=== PATIENT | female | born 1935 | race African-American/Black ===

== ENCOUNTER 2017-06-15 20:09 | Inpatient (IN) | payer MEDICARE, MEDICAID ==
[2017-06-15 22:14] LABS: Bilirubin Negative (Negative); Blood, Urine Negative (Negative); Glucose, Urine (Dipstick) Negative (Negative); Ketone, Urine Negative (Negative); Nitrite Negative (Negative); Protein, Urine (Dipstick) Trace mg/dL (Neg-Trace); Urobilinogen 0.2 mg/dL (0.2-1.0)
[2017-06-15 22:16] LABS: Bacteria/HPF None Seen HPF (None Seen); Hyaline Casts/LPF 4-6 HYALINE CAST LPF (0-3 Hyaline)
[2017-06-15 22:24] LABS: Yeast-All Forms 2+ HPF (None Seen)
[2017-06-15 22:35] LABS: #Lymphocytes 1.9 thou/uL (1.20-3.40); #Monocytes 0.6 thou/uL (0.11-0.59); #Neutrophils 2.6 thou/uL (1.40-6.50); %Basophils 0.6 % (0.0-1.0); %Eosinophils 0.1 % (0.0-10.0); %Lymphocytes 37.4 % (21.0-51.0); Hematocrit 38.9 % (36.0-47.0); Red Blood Cell (RBC) Count 4.26 mill/uL (4.20-5.40); White Blood Cell (WBC) Count 5.2 thou/uL (4.8-10.8)
[2017-06-15 22:49] LABS: ALT (SGPT) 36 U/L (8-55); AST (SGOT) 25 U/L (5-34); Alkaline Phosphatase 58 U/L (40-150); Anion Gap 13 mmol/L (10-20); BUN (Urea Nitrogen) 21 mg/dL (9.8-20.1); Bilirubin, Total 0.3 mg/dL (0.2-1.2); Calc. Creatinine Clearance 0 mL/min (70-130); Calcium 8.8 mg/dL (7.8-10.44); Carbon Dioxide 22 mmol/L (23-31); Chloride 106 mmol/L (98-107); Estimated GFR-MDRD 46; Globulin 3.1 g/dL (2.4-3.5); Lipase 7 U/L (8-78); Protein, Total 6.7 g/dL (6.0-8.3)
[2017-06-16] MEDS ORDERED: Ondansetron ODT 4 MG TAB SL PRN (03:38)
[2017-06-16] MEDS ORDERED: Ondansetron HCl/PF 4 MG/2 ML Vial IVP PRN (03:38)
[2017-06-16 04:49] VITALS: BMI 23.8
[2017-06-16] MEDS ORDERED: Loratadine 10 MG TAB PO PRN (07:06)
[2017-06-16] MEDS ORDERED: Chloraseptic Spray 180 ml Bottle PO PRN (07:06)
[2017-06-16] MEDS ORDERED: Diabetic Tussin 200 MG/10 ML UDCUP PO PRN (07:06)
[2017-06-16] MEDS ORDERED: Acetaminophen 325 MG TAB PO PRN (07:06)
[2017-06-16] MEDS ORDERED: Sodium Chloride 0.65% Nasal 44 ML BOT EA NARE PRN (07:06)
[2017-06-16] MEDS ORDERED: Zolpidem Tartrate 5 MG TAB PO PRN (07:06)
[2017-06-16] MEDS ORDERED: Senokot 8.6 MG TAB PO PRN (07:06)
[2017-06-16] MEDS ORDERED: hydrALAZINE 20 MG/ML VIAL SLOW IVP PRN (07:06)
[2017-06-16] MEDS ORDERED: Artificial Tears 18 DROP/0.9 ML EA EYE PRN (07:06)
[2017-06-16] MEDS ORDERED: Loperamide HCl 2 MG CAP PO PRN (07:06)
[2017-06-16] MEDS ORDERED: Mag-Al 1200 mg/1200 mg/30 ML UDCUP PO PRN (07:06)
[2017-06-16] MEDS ORDERED: Eucerin (Mineral Oil/Petrolatum,White) 30 gm Jar TOP PRN (07:06)
[2017-06-16] MEDS ORDERED: Famotidine 20 MG TAB PO SCH (09:00)
[2017-06-16] MEDS: Digoxin 0.125 MG TAB PO SCH (09:14)
[2017-06-16] MEDS: Aspirin 81 mg Enteric Coated Tablet PO SCH (09:15)
[2017-06-16] MEDS: Amlodipine 10 MG TAB PO SCH (09:15)
[2017-06-16] MEDS: Carbidopa/Levodopa CR 50-200 mg Tablet PO SCH ×3 (09:15→20:19)
[2017-06-16] MEDS: Lisinopril 20 MG TAB PO SCH (09:15)
[2017-06-16] MEDS: Anastrozole 1 MG TAB PO SCH (09:16)
[2017-06-16] MEDS: Enoxaparin Sodium 40 MG/0.4 ML SYRINGE SC SCH (09:17)
[2017-06-16] MEDS: Sodium Chloride 0.9% 1,000 ML IV SCH ×2 (09:17→23:35)
[2017-06-16] MEDS: Ondansetron ODT 4 MG TAB PO PRN (09:21)
[2017-06-16] MEDS: HYDROcodone/Acetaminophen 5/325 mg Tablet PO PRN (10:37)
[2017-06-16] MEDS: Milk Of Magnesia 30 ML UDCUP PO PRN (10:37)
[2017-06-16] MEDS: cefTRIAXone\\ROCEPHIN 1 GM, Admixture Fee 1 EACH in Sodium Chloride 0.9% 100 ML IVPB SCH (10:38)
[2017-06-16] MEDS ORDERED: HumaLOG 300 UNITS/3 ML VIAL SC PRN (12:21)
[2017-06-16] MEDS ORDERED: Dextrose 50% Abboject 50 ML SYRINGE IVP PRN (12:21)
[2017-06-16] MEDS ORDERED: Dextrose 5% in Water 1,000 ML IV PRN (12:21)
[2017-06-16] MEDS ORDERED: Metoclopramide HCl 10 MG/2 ML VIAL IVP PRN (13:02)
[2017-06-16] MEDS: traMADol HCl 50 MG TAB PO PRN (13:49)
--- NOTE | 2017-06-16 13:51 | HP ---
PRIMARY CARE PHYSICIAN: Kaylynn Ghotra M.D. REASON FOR ADMISSION: Generalized weakness, dehydration, acute on chronic kidney failure, urinary tract infection. HISTORY OF PRESENT ILLNESS: An 82-year-old -Citizen Of [place] female with a history of diabetes, hypertension as well as history of breast cancer, who initially went to [facility] with a complaint of nausea and vomiting. The patient was not able to keep anything by mouth, and this was ongoing for the last 2 days. She was also complaining of abdominal pain. The patient did not have any fever or chills. She was not complaining of any urinary tract infection symptoms. Patient's family member reports that she had recently UTIs and she has finished the antibiotic therapies. She denies any diarrhea. She denies any hematochezia or melena. The patient's condition was getting more and more weak and that is why family member brought her to emergency room today. REVIEW OF SYSTEMS: The following complete review of systems was negative, unless otherwise mentioned in the HPI or below: Constitutional: Weight loss or gain, ability to conduct usual activities. Skin: Rash, itching. Eyes: Double vision, pain. ENT/Mouth: Nose bleeding, neck stiffness, pain, tenderness. Cardiovascular: Palpitations, dyspnea on exertion, orthopnea. Respiratory: Shortness of breath, wheezing, cough, hemoptysis, fever or night sweats. Gastrointestinal: Poor appetite, abdominal pain, heartburn, nausea, vomiting, constipation, or diarrhea. Genitourinary: Urgency, frequency, dysuria, nocturia. Musculoskeletal: Pain, swelling. Neurologic/Psychiatric: Anxiety, depression. Allergy/Immunologic: Skin rash, bleeding tendency. Please see my HPI for pertinent positives and negatives. All other review of systems reviewed and negative except as mentioned in the HPI. EMERGENCY ROOM COURSE: At [facility], patient was given Rocephin 1 gram, fentanyl 25 mcg, Zofran 4 mg, IV fluids, and Tylenol 1 gram. PAST MEDICAL HISTORY: Gastroesophageal reflux disease; history of uterine prolapse; history of osteomyelitis of the foot or ankle; peripheral neuropathy; congestive heart failure, type of congestive heart failure not known; diabetes, type 2; diabetic gastroparesis; hypothyroidism; hiatal hernia; history of peptic ulcer disease; Parkinson's disease; peripheral vascular disease; external hemorrhoid. PAST SURGICAL HISTORY: Bladder suspension, hysterectomy, hernia repair, mastectomy of the left breast for left breast cancer, gastric fundoplication, cholecystectomy, tubal ligation. PAST PSYCHIATRIC HISTORY: Schizoaffective disorder/schizophrenia. SOCIAL HISTORY: Patient lives at home with the family. No history of tobacco, alcohol, or illicit drug abuse. ALLERGIES: No known drug allergies. FAMILY HISTORY: No strong family history of CAD, CVA or cancer. CURRENT HOME MEDICATIONS: Lisinopril 20 mg p.o. daily, NovoLog insulin as per sliding scale, amlodipine 10 mg p.o. daily, digoxin 125 mcg p.o. daily, carbidopa-levodopa one tablet 3 times daily, pentoxifylline 400 mg 3 times daily , omeprazole 20 mg p.o. daily, levothyroxine 100 mcg p.o. daily, Seroquel 12.5 mg twice daily and 50 mg at bedtime, Lantus 15 units subcu at bedtime, vitamin D3 2000 units p.o. daily, vitamin E 400 units p.o. daily, Zofran 4 mg q.8 hourly p.r.n., tramadol 50 mg q.8 hourly p.r.n., Arimidex 1 mg p.o. daily, aspirin 81 mg p.o. daily, vitamin B6 100 mg p.o. daily. PHYSICAL EXAMINATION: VITAL SIGNS: On arrival, blood pressure 170/104, pulse 109, respiratory rate 24 , temperature 100.5, saturation 100% on room air, weight 65.8 kilograms. GENERAL: Patient currently appears weak, in no obvious acute distress. HEENT: Normocephalic, atraumatic. Eyes: Pupils round and reactive to light. Extraocular muscles intact. ENT: Dry appearing mucous membranes. No oral lesions. No pharyngeal erythema, no exudate. NECK: Supple. Range of motion is normal. No meningeal signs of irritation. LUNGS: Clear to auscultation without any rhonchi or rales. CARDIAC: S1, S2 regular without any murmur. ABDOMEN: Soft, bowel sounds present, nontender, nondistended. No organomegaly , no mass, no suprapubic tenderness. BACK EXAMINATION: No CVA tenderness. No point tenderness. EXTREMITIES: Upper extremities, passive movement of all joints are normal. Lower extremities: No edema. Good peripheral pulsation. SKIN: No skin rash. HEMATOLOGICAL SYSTEM: No lymphadenopathy. PSYCHIATRIC: Normal affect. NEUROLOGIC: Grossly nonfocal examination. She is moving all 4 limbs, follows simple commands, speech normal. SIGNIFICANT LABS: EKG, based on my review, normal sinus rhythm, nonspecific ST- T changes. CT of the abdomen and pelvis showing large hiatal hernia, postcholecystectomy changes, no acute abnormality noted. CBC: WBC 5.2, hemoglobin 12.6, platelets 157. BMP: Sodium 137, potassium 3.9, chloride 106, carbon dioxide 22, BUN 21, creatinine 1.34, glucose 147, calcium 8.8. LFTs: AST 25, ALT 1236, alkaline phosphatase 58, albumin 3.6, lipase 7. Urinalysis suggestive of UTI. Blood culture is negative so far. ASSESSMENT AND PLAN: 1. Intractable nausea and vomiting. At this point, the patient's symptoms could be explained by multiple etiologies including 1 reason is urinary tract infection and second is she has history of hiatal hernia as well as a history of gastroparesis from diabetes. At this point, the patient will need symptomatic treatment with Zofran p.r.n. basis. We will also continue Protonix 40 mg IV daily and Reglan p.r.n. basis. 2. Dehydration. Patient is not able to keep anything down and that is why she is clinically dehydrated. Patient also has worsening of renal failure. Patient appears volume depleted. At this point, patient will be given IV fluid with NS at 70 mL per hour and we will monitor renal function. We will watch for any fluid overload given her history of congestive heart failure. 3. Acute on chronic kidney failure. Baseline chronic kidney disease, stage 2. Patient is getting IV fluid and we will monitor renal function at this point from [facility] labs and currently her renal function is improving. We will repeat labs tomorrow. 4. Urinary tract infection. We will continue Levaquin 250 mg IV daily based on renal dose. We will follow up on culture result. 5. Diabetes, type 2. We will continue insulin as per sliding scale per protocol and we will also continue the Levemir insulin 15 units subcutaneous p.m. Diabetic diet will be given. 6. History of breast cancer, status post mastectomy. The patient is currently on Arimidex 1 mg p.o. daily. We will continue while in hospital. 7. Hypertension. We will continue amlodipine 10 mg p.o. daily and lisinopril 20 mg p.o. daily. 8. Hypothyroidism. Continue Synthroid 100 mcg p.o. daily. 9. Dyslipidemia. Continue Lipitor 40 mg p.o. at bedtime. 10. Parkinson's disease. Continue carbidopa-levodopa ER 50/200 half tablet 3 times daily. 11. Hiatal hernia/gastroesophageal reflux disease. We will continue Protonix 40 mg IV daily. 12. History of peripheral vascular disease. Continue pentoxifylline 400 mg t.i.d. 13. Physical deconditioning. Patient will need PT/OT while in hospital. 14. Deep vein thrombosis prophylaxis. Lovenox 40 mg subcutaneous daily. 15. Gastrointestinal prophylaxis. Patient is already on Protonix therapy. CODE STATUS: Discussed with the patient's daughter, who wants to be a full code status. She is surrogate decision maker. DISPOSITION PLAN: Based on clinical course, likely patient will need more than 2 midnights. While in hospital, we will also continue with PT/OT evaluation. Plan of care discussed with the patient's daughter at bedside. MTDD
[2017-06-16] MEDS: Ondansetron HCl/PF 4 MG/2 ML Vial IVP PRN ×2 (16:33→23:36)
[2017-06-16] MEDS: Atorvastatin Calcium 40 MG TAB PO SCH (20:19)
[2017-06-16] MEDS: Insulin Detemir 100 UNITS/ML 15 UNITS in Syringe 0 ML SC SCH (20:31)
[2017-06-16] MEDS ORDERED: Non-Formulary Item 1 EACH (Insulin Glargine,Hum.Rec.Anlog 15 UNIT) SQ SCH (21:00)
[2017-06-17 04:11] LABS: #Monocytes 0.6 thou/uL (0.11-0.59); #Neutrophils 3.6 thou/uL (1.40-6.50); %Basophils 0.2 % (0.0-1.0); %Eosinophils 0.2 % (0.0-10.0); %Lymphocytes 19.8 % (21.0-51.0); %Monocytes 10.6 % (0.0-10.0); Hematocrit 44.4 % (36.0-47.0); Mean Platelet Volume 8.8 fL (7.4-10.4); Red Blood Cell (RBC) Count 4.87 mill/uL (4.20-5.40); White Blood Cell (WBC) Count 5.2 thou/uL (4.8-10.8)
[2017-06-17 04:28] LABS: Anion Gap 16 mmol/L (10-20); BUN (Urea Nitrogen) 12 mg/dL (9.8-20.1); Calc. Creatinine Clearance 50 mL/min (70-130); Calcium 9.4 mg/dL (7.8-10.44); Carbon Dioxide 24 mmol/L (23-31); Chloride 100 mmol/L (98-107); Estimated GFR-MDRD 71
[2017-06-17] MEDS: Levothyroxine Sodium 100 MCG TAB PO SCH (06:18)
[2017-06-17] MEDS: Ondansetron HCl/PF 4 MG/2 ML Vial IVP PRN (06:18)
[2017-06-17] MEDS: Digoxin 0.125 MG TAB PO SCH (08:19)
[2017-06-17] MEDS: Enoxaparin Sodium 40 MG/0.4 ML SYRINGE SC SCH (08:19)
[2017-06-17] MEDS: Amlodipine 10 MG TAB PO SCH (08:20)
[2017-06-17] MEDS: Carbidopa/Levodopa CR 50-200 mg Tablet PO SCH ×3 (08:20→20:24)
[2017-06-17] MEDS: Aspirin 81 mg Enteric Coated Tablet PO SCH (08:20)
[2017-06-17] MEDS: Lisinopril 20 MG TAB PO SCH (08:20)
[2017-06-17] MEDS: traMADol HCl 50 MG TAB PO PRN ×2 (08:21→17:46)
[2017-06-17] MEDS: cefTRIAXone\\ROCEPHIN 1 GM, Admixture Fee 1 EACH in Sodium Chloride 0.9% 100 ML IVPB SCH (08:23)
[2017-06-17] MEDS ORDERED: FLU VACC TS2017-18 (>65YR) 0.5 ML SYRINGE IM ONE (09:00)
[2017-06-17] MEDS: Levofloxacin/D5W 250 MG in Premix Bag 1 BAG IVPB SCH (09:24)
[2017-06-17] MEDS: Anastrozole 1 MG TAB PO SCH (10:22)
[2017-06-17] MEDS: Sodium Chloride 0.9% 1,000 ML IV SCH ×2 (11:18→14:58)
--- NOTE | 2017-06-17 12:07 | PDOC.PN ---
- Subjective Encounter Start Date: 06/17/17 Encounter Start Time: 08:45 Patient seen and examined. pt continue to have nausea and vomiting. No overnight events - Objective Resuscitation Status: Resuscitation Status FULL:Full Resuscitation MAR Reviewed: Yes Vital Signs & Weight: Vital Signs (12 hours) Temp Pulse Resp BP BP Pulse Ox 06/17/17 08:20 99 194/73 H 06/17/17 08:19 99 06/17/17 08:05 99.3 F 101 H 18 194/73 H 100 06/17/17 08:00 99.3 F 99 18 100 06/17/17 03:38 98.8 F 104 H 16 183/84 H 99 06/17/17 00:26 99.1 F 104 H 16 179/74 H 99 Weight Weight 143 lb 4.807 oz I&O: 06/16/17 06/17/17 06/18/17 06:59 06:59 06:59 Intake Total 920 Balance 920 Result Diagrams: 06/17/17 03:58 06/17/17 03:58 Additional Labs: Accuchecks 06/17/17 06/17/17 06/16/17 10:52 03:43 19:29 POC Glucose 280 H 204 H 253 H 06/16/17 06/16/17 16:29 11:49 POC Glucose 225 H 174 H Phys Exam - Physical Examination Constitutional: NAD HEENT: PERRLA, moist MMs, sclera anicteric Neck: no JVD, supple Respiratory: no wheezing, no rales, no rhonchi Cardiovascular: RRR, no significant murmur, no rub Gastrointestinal: soft, non-tender, no distention, positive bowel sounds Musculoskeletal: no edema, pulses present Neurological: non-focal, normal sensation, moves all 4 limbs Psychiatric: normal affect Skin: no rash, normal turgor Dx/Plan (1) Acute kidney failure Status: Acute (2) Dehydration Code(s): E86.0 - DEHYDRATION Status: Acute (3) Intractable nausea and vomiting Code(s): R11.2 - NAUSEA WITH VOMITING, UNSPECIFIED Status: Acute (4) UTI (urinary tract infection) Status: Acute (5) Breast cancer, left Code(s): C50.912 - MALIGNANT NEOPLASM OF UNSPECIFIED SITE OF LEFT FEMALE BREAST Status: Chronic (6) Diabetes type 2, controlled Code(s): E11.9 - TYPE 2 DIABETES MELLITUS WITHOUT COMPLICATIONS Status: Chronic (7) Dyslipidemia Code(s): E78.5 - HYPERLIPIDEMIA, UNSPECIFIED Status: Chronic (8) Hiatal hernia Code(s): K44.9 - DIAPHRAGMATIC HERNIA WITHOUT OBSTRUCTION OR GANGRENE Status: Chronic (9) Hypertension Code(s): I10 - ESSENTIAL (PRIMARY) HYPERTENSION Status: Chronic (10) Parkinson disease Code(s): G20 - PARKINSON'S DISEASE Status: Chronic - Plan cont current plan of care, plan discussed w/ family, continue antibiotics * pt's labs test improved and exam is not alarming * will continue to treat medically * if still symptomatic by tomorrow, will consider GI consult * continue rocephin and levaquin. * follow culture * discussed with daughter * medication reviewed as below * symptomatic treatment Review of Systems - Review of Systems Constitutional: negative: Fever, Chills, Sweats, Weakness, Malaise, Other Eyes: negative: Pain, Vision Change, Conjunctivae Inflammation, Eyelid Inflammation, Redness, Other ENT: negative: Ear Pain, Ear Discharge, Nose Pain, Nose Discharge, Nose Congestion, Mouth Pain, Mouth Swelling, Throat Pain, Throat Swelling, Other Respiratory: negative: Cough, Dry, Shortness of Breath, Hemoptysis, SOB with Excertion, Pleuritic Pain, Sputum, Wheezing Cardiovascular: negative: Chest Pain, Palpitations, Orthopnea, Paroxysmal Noc. Dyspnea, Edema, Light Headedness, Other Gastrointestinal: Nausea, Vomiting. negative: Abdominal Pain, Diarrhea, Constipation, Melena, Hematochezia, Other Genitourinary: negative: Dysuria, Frequency, Incontinence, Hematuria, Retention , Other Musculoskeletal: negative: Neck Pain, Shoulder Pain, Arm Pain, Back Pain, Hand Pain, Leg Pain, Foot Pain, Other - Medications/Allergies Allergies/Adverse Reactions: Allergies Allergy/AdvReac Type Severity Reaction Status Date / Time No Known Allergies Allergy Verified 05/26/15 09:14 Medications: Current Medications Acetaminophen (Tylenol) 650 mg PO Q4H PRN PRN Reason: Headache/Fever or Pain Hydrocodone Bitart/Acetaminophen ([place] 5/325) 1 tab PO Q4H PRN PRN Reason: Moderate Pain (4-6) Last Admin: 06/16/17 10:37 Dose: 1 tab Al Hydroxide/Mg Hydroxide (Maalox) 30 ml PO Q6H PRN PRN Reason: Heartburn or Indigestion Amlodipine Besylate (Norvasc) 10 mg PO DAILY [facility] Last Admin: 06/17/17 08:20 Dose: 10 mg Anastrozole (Arimidex) 1 mg PO DAILY [facility] Last Admin: 06/17/17 10:22 Dose: 1 mg Artificial Tears (Tears Naturale) 0 drop EA EYE PRN PRN PRN Reason: Dry Eyes Aspirin (Ecotrin) 81 mg PO DAILY [facility] Last Admin: 06/17/17 08:20 Dose: 81 mg Atorvastatin Calcium (Lipitor) 40 mg PO HS [facility] Last Admin: 06/16/17 20:19 Dose: 40 mg Carbidopa/Levodopa (Sinemet Cr 50/200) 0.5 tab PO TID [facility] Last Admin: 06/17/17 08:20 Dose: 0.5 tab Cholecalciferol (Vitamin D3) 1,000 units PO DAILY [facility] Last Admin: 06/17/17 08:20 Dose: 1,000 units Dextrose/Water (Dextrose 50%) 25 gm IVP PRN PRN PRN Reason: HYPOGLYCEMIA PROTOCOL Digoxin (Lanoxin) 0.125 mg PO DAILY [facility] Last Admin: 06/17/17 08:19 Dose: 0.125 mg Enoxaparin Sodium (Lovenox) 40 mg SC 0900 [facility] Last Admin: 06/17/17 08:19 Dose: 40 mg Glucagon (Glucagon) 1 mg IM PRN PRN PRN Reason: HYPOGLYCEMIA PROTOCOL Guaifenesin (Robitussin Sf) 200 mg PO Q4H PRN PRN Reason: Cough Hydralazine HCl (Apresoline) 10 mg SLOW IVP Q4H PRN PRN Reason: Systolic BP > 180 Sodium Chloride (Normal Saline 0.9%) 1,000 mls @ 70 mls/hr IV .[id number] [facility] Last Admin: 06/17/17 11:18 Dose: Not Given Ceftriaxone Sodium 1 gm/Miscellaneous Medication 1 each/ Sodium Chloride 100 mls @ 200 mls/hr IVPB DAILY [facility] Last Admin: 06/17/17 08:23 Dose: 100 mls Insulin Detemir 15 units/ (Syringe) 0.15 mls @ 0 mls/hr SC QPM [facility] Last Admin: 06/16/17 20:31 Dose: Not Given Levofloxacin 250 mg/ Device 50 mls @ 100 mls/hr IVPB DAILY [facility] Last Admin: 06/17/17 09:24 Dose: 50 mls Dextrose/Water (D5w) 1,000 mls @ 0 mls/hr IV INF PRN; As Directed PRN Reason: HYPOGLYCEMIA PROTOCOL Insulin Human Lispro (Humalog) 0 units SC .MODERATE SLIDING SC PRN; Protocol PRN Reason: MODERATE SLIDING SCALE Levothyroxine Sodium (Synthroid) 100 mcg PO 0600 [facility] Last Admin: 06/17/17 06:18 Dose: 100 mcg Lisinopril (Zestril) 20 mg PO QAM [facility] Last Admin: 06/17/17 08:20 Dose: 20 mg Loperamide HCl (Imodium) 2 mg PO PRN PRN PRN Reason: Diarrhea/Loose Stools Loratadine (Claritin) 10 mg PO DAILYPRN PRN PRN Reason: Sinus Symptoms Magnesium Hydroxide (Milk Of Magnesium) 30 ml PO DAILYPRN PRN PRN Reason: Constipation Last Admin: 06/16/17 10:37 Dose: 30 ml Metoclopramide HCl (Reglan) 10 mg IVP Q6H PRN PRN Reason: Nausea/Vomiting Last Admin: 06/16/17 14:08 Dose: 10 mg Mineral Oil/White Petrolatum (Eucerin Cream) 0 gm TOP BIDPRN PRN PRN Reason: Dry Skin Ondansetron HCl (Zofran Odt) 4 mg PO Q6H PRN PRN Reason: Nausea/Vomiting Last Admin: 06/16/17 09:21 Dose: 4 mg Ondansetron HCl (Zofran) 4 mg IVP Q6H PRN PRN Reason: Nausea/Vomiting Last Admin: 06/17/17 06:18 Dose: 4 mg Pantoprazole Sodium (Protonix) 40 mg IVP 2100 [facility] Pentoxifylline (Trental) 400 mg PO TID-[facility] Last Admin: 06/17/17 11:55 Dose: 400 mg Phenol (Chloraseptic [place] 180 Ml Bot) 0 ml PO PRN PRN PRN Reason: Sore Throat Quetiapine Fumarate (Seroquel) 25 mg PO HS [facility] Last Admin: 06/16/17 20:19 Dose: 25 mg Senna (Senokot) 2 tab PO HSPRN PRN PRN Reason: Constipation Sodium Chloride ([place] Nasal [place] 0.65%) 0 ml EA NARE QIDPRN PRN PRN Reason: Nasal Congestion Tramadol HCl (Ultram) 50 mg PO Q6H PRN PRN Reason: Pain Last Admin: 06/17/17 08:21 Dose: 50 mg Vitamin E (Vitamin E) 400 units PO DAILY [facility] Last Admin: 06/17/17 10:22 Dose: 400 units Zolpidem Tartrate (Ambien) 5 mg PO HSPRN PRN PRN Reason: Insomnia
[2017-06-17] MEDS: Ondansetron ODT 4 MG TAB PO PRN (17:46)
[2017-06-17] MEDS: Pantoprazole 40 MG VIAL IVP SCH (20:24)
[2017-06-17] MEDS: Atorvastatin Calcium 40 MG TAB PO SCH (20:35)
[2017-06-17] MEDS: Insulin Detemir 100 UNITS/ML 15 UNITS in Syringe 0 ML SC SCH (20:36)
[2017-06-18] MEDS: Ondansetron HCl/PF 4 MG/2 ML Vial IVP PRN ×3 (03:08→18:22)
[2017-06-18] MEDS: Sodium Chloride 0.9% 1,000 ML IV SCH ×3 (03:13→19:38)
[2017-06-18] MEDS: HYDROcodone/Acetaminophen 5/325 mg Tablet PO PRN ×4 (03:17→20:33)
[2017-06-18] MEDS: Levothyroxine Sodium 100 MCG TAB PO SCH (06:34)
[2017-06-18] MEDS: Carbidopa/Levodopa CR 50-200 mg Tablet PO SCH ×3 (08:36→20:36)
[2017-06-18] MEDS: Enoxaparin Sodium 40 MG/0.4 ML SYRINGE SC SCH (08:36)
[2017-06-18] MEDS: Amlodipine 10 MG TAB PO SCH (08:36)
[2017-06-18] MEDS: Lisinopril 20 MG TAB PO SCH (08:36)
[2017-06-18] MEDS: Digoxin 0.125 MG TAB PO SCH (08:37)
[2017-06-18] MEDS: cefTRIAXone\\ROCEPHIN 1 GM, Admixture Fee 1 EACH in Sodium Chloride 0.9% 100 ML IVPB SCH (08:37)
[2017-06-18] MEDS: Aspirin 81 mg Enteric Coated Tablet PO SCH (08:37)
[2017-06-18] MEDS: Anastrozole 1 MG TAB PO SCH (08:38)
[2017-06-18] MEDS: Levofloxacin/D5W 250 MG in Premix Bag 1 BAG IVPB SCH (10:00)
--- NOTE | 2017-06-18 10:09 | PDOC.PN ---
- Subjective Encounter Start Date: 06/18/17 Encounter Start Time: 10:08 - Objective Resuscitation Status: Resuscitation Status FULL:Full Resuscitation MAR Reviewed: Yes Vital Signs & Weight: Vital Signs (12 hours) Temp Pulse Resp BP BP Pulse Ox 06/18/17 08:37 97 06/18/17 08:36 97 166/76 H 06/18/17 08:00 98.8 F 97 16 166/76 H 99 06/18/17 07:24 98.8 F 97 20 99 Weight Weight 143 lb 4.807 oz I&O: 06/17/17 06/18/17 06/19/17 06:59 06:59 06:59 Intake Total 920 2620 180 Output Total 850 Balance 920 1770 180 Result Diagrams: 06/17/17 03:58 06/17/17 03:58 Additional Labs: Accuchecks 06/18/17 06/17/17 06/17/17 04:23 19:31 16:23 POC Glucose 218 H 220 H 196 H 06/17/17 10:52 POC Glucose 280 H Dx/Plan (1) Intractable nausea and vomiting Code(s): R11.2 - NAUSEA WITH VOMITING, UNSPECIFIED Status: Acute (2) Acute kidney failure Status: Resolved (3) Dehydration Code(s): E86.0 - DEHYDRATION Status: Acute (4) UTI (urinary tract infection) Status: Acute Comment: Cx negative so far (5) Breast cancer, left Code(s): C50.912 - MALIGNANT NEOPLASM OF UNSPECIFIED SITE OF LEFT FEMALE BREAST Status: Chronic (6) Diabetes type 2, controlled Code(s): E11.9 - TYPE 2 DIABETES MELLITUS WITHOUT COMPLICATIONS Status: Chronic (7) Dyslipidemia Code(s): E78.5 - HYPERLIPIDEMIA, UNSPECIFIED Status: Chronic (8) Hiatal hernia Code(s): K44.9 - DIAPHRAGMATIC HERNIA WITHOUT OBSTRUCTION OR GANGRENE Status: Chronic (9) Hypertension Code(s): I10 - ESSENTIAL (PRIMARY) HYPERTENSION Status: Chronic (10) Parkinson disease Code(s): G20 - PARKINSON'S DISEASE Status: Chronic - Plan DC [email or web address] [email or web address] Cx negative so far * . Review of Systems - Medications/Allergies Allergies/Adverse Reactions: Allergies Allergy/AdvReac Type Severity Reaction Status Date / Time No Known Allergies Allergy Verified 05/26/15 09:14 Medications: Current Medications Acetaminophen (Tylenol) 650 mg PO Q4H PRN PRN Reason: Headache/Fever or Pain Hydrocodone Bitart/Acetaminophen ([place] 5/325) 1 tab PO Q4H PRN PRN Reason: Moderate Pain (4-6) Last Admin: 06/18/17 10:00 Dose: 1 tab Al Hydroxide/Mg Hydroxide (Maalox) 30 ml PO Q6H PRN PRN Reason: Heartburn or Indigestion Amlodipine Besylate (Norvasc) 10 mg PO DAILY [facility] Last Admin: 06/18/17 08:36 Dose: 10 mg Anastrozole (Arimidex) 1 mg PO DAILY [facility] Last Admin: 06/18/17 08:38 Dose: 1 mg Artificial Tears (Tears Naturale) 0 drop EA EYE PRN PRN PRN Reason: Dry Eyes Aspirin (Ecotrin) 81 mg PO DAILY [facility] Last Admin: 06/18/17 08:37 Dose: 81 mg Atorvastatin Calcium (Lipitor) 40 mg PO HS [facility] Last Admin: 06/17/17 20:35 Dose: 40 mg Carbidopa/Levodopa (Sinemet Cr 50/200) 0.5 tab PO TID [facility] Last Admin: 06/18/17 08:36 Dose: 0.5 tab Cholecalciferol (Vitamin D3) 1,000 units PO DAILY [facility] Last Admin: 06/18/17 08:37 Dose: 1,000 units Dextrose/Water (Dextrose 50%) 25 gm IVP PRN PRN PRN Reason: HYPOGLYCEMIA PROTOCOL Digoxin (Lanoxin) 0.125 mg PO DAILY [facility] Last Admin: 06/18/17 08:37 Dose: 0.125 mg Enoxaparin Sodium (Lovenox) 40 mg SC 0900 [facility] Last Admin: 06/18/17 08:36 Dose: 40 mg Glucagon (Glucagon) 1 mg IM PRN PRN PRN Reason: HYPOGLYCEMIA PROTOCOL Guaifenesin (Robitussin Sf) 200 mg PO Q4H PRN PRN Reason: Cough Hydralazine HCl (Apresoline) 10 mg SLOW IVP Q4H PRN PRN Reason: Systolic BP > 180 Sodium Chloride (Normal Saline 0.9%) 1,000 mls @ 70 mls/hr IV .[id number] [facility] Last Admin: 06/18/17 03:13 Dose: 1,000 mls Insulin Detemir 15 units/ (Syringe) 0.15 mls @ 0 mls/hr SC QPM [facility] Last Admin: 06/17/17 20:36 Dose: Not Given Levofloxacin 250 mg/ Device 50 mls @ 100 mls/hr IVPB DAILY [facility] Last Admin: 06/18/17 10:00 Dose: 50 mls Dextrose/Water (D5w) 1,000 mls @ 0 mls/hr IV INF PRN; As Directed PRN Reason: HYPOGLYCEMIA PROTOCOL Fluconazole/Sodium Chloride (200 mg/ Device) 100 mls @ 100 mls/hr IVPB DAILY [facility] Insulin Human Lispro (Humalog) 0 units SC .MODERATE SLIDING SC PRN; Protocol PRN Reason: MODERATE SLIDING SCALE Levothyroxine Sodium (Synthroid) 100 mcg PO 0600 [facility] Last Admin: 06/18/17 06:34 Dose: 100 mcg Lisinopril (Zestril) 20 mg PO QAM [facility] Last Admin: 06/18/17 08:36 Dose: 20 mg Loperamide HCl (Imodium) 2 mg PO PRN PRN PRN Reason: Diarrhea/Loose Stools Loratadine (Claritin) 10 mg PO DAILYPRN PRN PRN Reason: Sinus Symptoms Magnesium Hydroxide (Milk Of Magnesium) 30 ml PO DAILYPRN PRN PRN Reason: Constipation Last Admin: 06/16/17 10:37 Dose: 30 ml Metoclopramide HCl (Reglan) 10 mg IVP Q6H PRN PRN Reason: Nausea/Vomiting Last Admin: 06/16/17 14:08 Dose: 10 mg Mineral Oil/White Petrolatum (Eucerin Cream) 0 gm TOP BIDPRN PRN PRN Reason: Dry Skin Ondansetron HCl (Zofran Odt) 4 mg PO Q6H PRN PRN Reason: Nausea/Vomiting Last Admin: 06/17/17 17:46 Dose: 4 mg Ondansetron HCl (Zofran) 4 mg IVP Q6H PRN PRN Reason: Nausea/Vomiting Last Admin: 06/18/17 09:59 Dose: 4 mg Pantoprazole Sodium (Protonix) 40 mg IVP 2100 [facility] Last Admin: 06/17/17 20:24 Dose: 40 mg Pentoxifylline (Trental) 400 mg PO TID-[facility] Last Admin: 06/18/17 08:38 Dose: 400 mg Phenol (Chloraseptic [place] 180 Ml Bot) 0 ml PO PRN PRN PRN Reason: Sore Throat Quetiapine Fumarate (Seroquel) 25 mg PO HS [facility] Last Admin: 06/17/17 20:25 Dose: 25 mg Senna (Senokot) 2 tab PO HSPRN PRN PRN Reason: Constipation Sodium Chloride ([place] Nasal [place] 0.65%) 0 ml EA NARE QIDPRN PRN PRN Reason: Nasal Congestion Tramadol HCl (Ultram) 50 mg PO Q6H PRN PRN Reason: Pain Last Admin: 06/17/17 17:46 Dose: 50 mg Vitamin E (Vitamin E) 400 units PO DAILY [facility] Last Admin: 06/17/17 10:22 Dose: 400 units Zolpidem Tartrate (Ambien) 5 mg PO HSPRN PRN PRN Reason: Insomnia
[2017-06-18] MEDS: Fluconazole In NaCl,Iso-Osm 200 MG in Premix Bag 1 BAG IVPB SCH ×2 (10:43)
--- NOTE | 2017-06-18 17:58 | PDOC.PN ---
- Subjective Encounter Start Date: 06/18/17 Encounter Start Time: 17:56 Subjective: wants to get tompkins out.c/o pain w it -: nursing report sminimal intake.dry heaving & gagging w food - Objective Resuscitation Status: Resuscitation Status FULL:Full Resuscitation MAR Reviewed: Yes Vital Signs & Weight: Vital Signs (12 hours) Temp Pulse Resp BP BP Pulse Ox 06/18/17 08:37 97 06/18/17 08:36 97 166/76 H 06/18/17 08:00 98.8 F 97 16 166/76 H 99 06/18/17 07:24 98.8 F 97 20 99 Weight Weight 143 lb 4.807 oz I&O: 06/17/17 06/18/17 06/19/17 06:59 06:59 06:59 Intake Total 920 2620 180 Output Total 850 Balance 920 1770 180 Result Diagrams: 06/17/17 03:58 06/17/17 03:58 Additional Labs: Accuchecks 06/18/17 06/18/17 06/18/17 16:40 12:11 04:23 POC Glucose 175 H 241 H 218 H 06/17/17 19:31 POC Glucose 220 H Phys Exam - Physical Examination Constitutional: NAD thin & cachectic looking HEENT: PERRLA, moist MMs, sclera anicteric, oral pharynx no lesions Neck: no nodes, no JVD, supple, full ROM Respiratory: no wheezing, no rales, no rhonchi, clear to auscultation bilateral Cardiovascular: RRR, no significant murmur Gastrointestinal: soft, non-tender, no distention, positive bowel sounds Musculoskeletal: no edema, pulses present Neurological: non-focal, normal sensation, moves all 4 limbs Deviation from normal: oriented to self only Dx/Plan (1) Intractable nausea and vomiting Code(s): R11.2 - NAUSEA WITH VOMITING, UNSPECIFIED Status: Acute (2) Acute kidney failure Status: Resolved (3) Dehydration Code(s): E86.0 - DEHYDRATION Status: Acute Comment: due to poor PO intake (4) UTI (urinary tract infection) Status: Acute Comment: Cx negative so far (5) Breast cancer, left Code(s): C50.912 - MALIGNANT NEOPLASM OF UNSPECIFIED SITE OF LEFT FEMALE BREAST Status: Chronic (6) Diabetes type 2, controlled Code(s): E11.9 - TYPE 2 DIABETES MELLITUS WITHOUT COMPLICATIONS Status: Chronic (7) Dyslipidemia Code(s): E78.5 - HYPERLIPIDEMIA, UNSPECIFIED Status: Chronic (8) Hiatal hernia Code(s): K44.9 - DIAPHRAGMATIC HERNIA WITHOUT OBSTRUCTION OR GANGRENE Status: Chronic (9) Hypertension Code(s): I10 - ESSENTIAL (PRIMARY) HYPERTENSION Status: Chronic (10) Parkinson disease Code(s): G20 - PARKINSON'S DISEASE Status: Chronic (11) Candiduria Code(s): B37.49 - OTHER UROGENITAL CANDIDIASIS Status: Acute (12) Diabetic gastroparesis Code(s): E11.43 - TYPE 2 DIABETES W DIABETIC AUTONOMIC (POLY)NEUROPATHY; K31.84 - GASTROPARESIS Status: Acute - Plan PT/OT, clinical social worker, speech therapy, out of bed/ambulate, DVT proph w/lovenox , DVT proph w/SCDs DC rocephin.urine Cx negative.urinary yeast-will add Diflucan -: cont IVF for now.symptoms may be d/t hiatal hernia. -: DC tompkins and do bladder scan.In & Out cath if neccessaryu. -: am labs.supportive care.renal Fx improved -: if no improvement,will consult GI.trial of reglan IV * . Review of Systems - Review of Systems Constitutional: Weakness, Malaise Gastrointestinal: Nausea, Vomiting, Abdominal Pain Genitourinary: negative: Dysuria, Frequency, Incontinence, Hematuria, Retention , Other Musculoskeletal: negative: Neck Pain, Shoulder Pain, Arm Pain, Back Pain, Hand Pain, Leg Pain, Foot Pain, Other Neurological: negative: Weakness, Numbness, Incoordination, Change in Speech, Confusion, Seizures, Other - Medications/Allergies Allergies/Adverse Reactions: Allergies Allergy/AdvReac Type Severity Reaction Status Date / Time No Known Allergies Allergy Verified 05/26/15 09:14 Medications: Current Medications Acetaminophen (Tylenol) 650 mg PO Q4H PRN PRN Reason: Headache/Fever or Pain Hydrocodone Bitart/Acetaminophen ([place] 5/325) 1 tab PO Q4H PRN PRN Reason: Moderate Pain (4-6) Last Admin: 06/18/17 14:46 Dose: 1 tab Al Hydroxide/Mg Hydroxide (Maalox) 30 ml PO Q6H PRN PRN Reason: Heartburn or Indigestion Amlodipine Besylate (Norvasc) 10 mg PO DAILY [facility] Last Admin: 06/18/17 08:36 Dose: 10 mg Anastrozole (Arimidex) 1 mg PO DAILY [facility] Last Admin: 06/18/17 08:38 Dose: 1 mg Artificial Tears (Tears Naturale) 0 drop EA EYE PRN PRN PRN Reason: Dry Eyes Aspirin (Ecotrin) 81 mg PO DAILY [facility] Last Admin: 06/18/17 08:37 Dose: 81 mg Atorvastatin Calcium (Lipitor) 40 mg PO HS [facility] Last Admin: 06/17/17 20:35 Dose: 40 mg Carbidopa/Levodopa (Sinemet Cr 50/200) 0.5 tab PO TID [facility] Last Admin: 06/18/17 14:46 Dose: 0.5 tab Cholecalciferol (Vitamin D3) 1,000 units PO DAILY [facility] Last Admin: 06/18/17 08:37 Dose: 1,000 units Dextrose/Water (Dextrose 50%) 25 gm IVP PRN PRN PRN Reason: HYPOGLYCEMIA PROTOCOL Digoxin (Lanoxin) 0.125 mg PO DAILY [facility] Last Admin: 06/18/17 08:37 Dose: 0.125 mg Enoxaparin Sodium (Lovenox) 40 mg SC 0900 [facility] Last Admin: 06/18/17 08:36 Dose: 40 mg Glucagon (Glucagon) 1 mg IM PRN PRN PRN Reason: HYPOGLYCEMIA PROTOCOL Guaifenesin (Robitussin Sf) 200 mg PO Q4H PRN PRN Reason: Cough Hydralazine HCl (Apresoline) 10 mg SLOW IVP Q4H PRN PRN Reason: Systolic BP > 180 Sodium Chloride (Normal Saline 0.9%) 1,000 mls @ 70 mls/hr IV .[id number] [facility] Last Admin: 06/18/17 03:13 Dose: 1,000 mls Levofloxacin 250 mg/ Device 50 mls @ 100 mls/hr IVPB DAILY [facility] Last Admin: 06/18/17 10:00 Dose: 50 mls Dextrose/Water (D5w) 1,000 mls @ 0 mls/hr IV INF PRN; As Directed PRN Reason: HYPOGLYCEMIA PROTOCOL Fluconazole/Sodium Chloride (200 mg/ Device) 100 mls @ 100 mls/hr IVPB Q24HR [facility] Last Admin: 06/18/17 10:43 Dose: 100 mls Insulin Human Lispro (Humalog) 0 units SC .MODERATE SLIDING SC PRN; Protocol PRN Reason: MODERATE SLIDING SCALE Levothyroxine Sodium (Synthroid) 100 mcg PO 0600 [facility] Last Admin: 06/18/17 06:34 Dose: 100 mcg Lisinopril (Zestril) 20 mg PO QAM [facility] Last Admin: 06/18/17 08:36 Dose: 20 mg Loperamide HCl (Imodium) 2 mg PO PRN PRN PRN Reason: Diarrhea/Loose Stools Loratadine (Claritin) 10 mg PO DAILYPRN PRN PRN Reason: Sinus Symptoms Magnesium Hydroxide (Milk Of Magnesium) 30 ml PO DAILYPRN PRN PRN Reason: Constipation Last Admin: 06/16/17 10:37 Dose: 30 ml Metoclopramide HCl (Reglan) 10 mg IVP Q6H PRN PRN Reason: Nausea/Vomiting Last Admin: 06/16/17 14:08 Dose: 10 mg Mineral Oil/White Petrolatum (Eucerin Cream) 0 gm TOP BIDPRN PRN PRN Reason: Dry Skin Ondansetron HCl (Zofran Odt) 4 mg PO Q6H PRN PRN Reason: Nausea/Vomiting Last Admin: 06/17/17 17:46 Dose: 4 mg Ondansetron HCl (Zofran) 4 mg IVP Q6H PRN PRN Reason: Nausea/Vomiting Last Admin: 06/18/17 09:59 Dose: 4 mg Pantoprazole Sodium (Protonix) 40 mg IVP 2100 [facility] Last Admin: 06/17/17 20:24 Dose: 40 mg Pentoxifylline (Trental) 400 mg PO TID-[facility] Last Admin: 06/18/17 12:43 Dose: 400 mg Phenol (Chloraseptic [place] 180 Ml Bot) 0 ml PO PRN PRN PRN Reason: Sore Throat Quetiapine Fumarate (Seroquel) 25 mg PO HS [facility] Last Admin: 06/17/17 20:25 Dose: 25 mg Senna (Senokot) 2 tab PO HSPRN PRN PRN Reason: Constipation Sodium Chloride ([place] Nasal [place] 0.65%) 0 ml EA NARE QIDPRN PRN PRN Reason: Nasal Congestion Tramadol HCl (Ultram) 50 mg PO Q6H PRN PRN Reason: Pain Last Admin: 06/17/17 17:46 Dose: 50 mg Vitamin E (Vitamin E) 400 units PO DAILY [facility] Last Admin: 06/18/17 10:42 Dose: 400 units Zolpidem Tartrate (Ambien) 5 mg PO HSPRN PRN PRN Reason: Insomnia
[2017-06-18] MEDS: Milk Of Magnesia 30 ML UDCUP PO PRN (18:22)
[2017-06-18] MEDS: Atorvastatin Calcium 40 MG TAB PO SCH (20:32)
[2017-06-18] MEDS: Pantoprazole 40 MG VIAL IVP SCH (20:34)
[2017-06-19] MEDS: Levothyroxine Sodium 100 MCG TAB PO SCH (05:21)
[2017-06-19 06:38] LABS: Anion Gap 11 mmol/L (10-20); BUN (Urea Nitrogen) 15 mg/dL (9.8-20.1); Calc. Creatinine Clearance 48 mL/min (70-130); Calcium 8.4 mg/dL (7.8-10.44); Carbon Dioxide 27 mmol/L (23-31); Chloride 101 mmol/L (98-107); Estimated GFR-MDRD 68; Magnesium 1.7 mg/dL (1.6-2.6)
[2017-06-19 06:42] LABS: Phosphorus 1.5 mg/dL (2.3-4.7)
[2017-06-19] MEDS ORDERED: SODIUM CHLORIDE IV SCH (08:00)
[2017-06-19] MEDS ORDERED: ADMIXTURE FEE IV SCH (08:00)
[2017-06-19] MEDS ORDERED: POTASSIUM PHOSPHATE IV SCH (08:00)
--- NOTE | 2017-06-19 10:18 | PDOC.PN ---
- Subjective Encounter Start Date: 06/19/17 Encounter Start Time: :17 Subjective: daughter at bedside.reports that she is still not eating/drinking -: discussed w hotel manager-pt has no andi-pharyngeal dysfunction -: gags and chokes w food - Objective Resuscitation Status: Resuscitation Status FULL:Full Resuscitation MAR Reviewed: Yes Vital Signs & Weight: Vital Signs (12 hours) Temp Pulse Resp BP Pulse Ox 06/19/17 08:00 97.8 F 84 20 99 06/19/17 07:14 98.2 F 84 16 128/73 99 06/19/17 04:00 98.7 F 97 20 132/65 94 L 06/19/17 01:45 91 L Weight Weight 143 lb 4.807 oz I&O: 06/18/17 06/19/17 06/20/17 06:59 06:59 06:59 Intake Total 2620 1260 300 Output Total 850 Balance 1770 1260 300 Result Diagrams: 06/17/17 03:58 06/19/17 05:07 Additional Labs: Accuchecks 06/19/17 06/18/17 06/18/17 03:34 20:54 16:40 POC Glucose 127 H 217 H 175 H 06/18/17 12:11 POC Glucose 241 H Microbiology 06/15/17 21:45 Urine voided Urine Culture - Final NO GROWTH AT 36 HOURS Laboratory Tests 06/15/17 06/17/17 06/19/17 22:26 03:58 05:07 Creatinine 1.34 H 0.92 Phosphorus 1.5 L Phys Exam - Physical Examination Constitutional: NAD thin,cachectic HEENT: PERRLA, moist MMs, sclera anicteric, oral pharynx no lesions Neck: no nodes, no JVD, supple, full ROM Respiratory: no wheezing, no rales, no rhonchi, clear to auscultation bilateral Cardiovascular: RRR, no significant murmur Gastrointestinal: soft, non-tender, no distention, positive bowel sounds Musculoskeletal: no edema, pulses present Neurological: non-focal, normal sensation, moves all 4 limbs Psychiatric: normal affect, A&O x 3 Skin: no rash Dx/Plan (1) Intractable nausea and vomiting Code(s): R11.2 - NAUSEA WITH VOMITING, UNSPECIFIED Status: Acute (2) Acute kidney failure Status: Resolved (3) Dehydration Code(s): E86.0 - DEHYDRATION Status: Acute Comment: due to poor PO intake (4) UTI (urinary tract infection) Status: Acute Comment: Culture negative (5) Breast cancer, left Code(s): C50.912 - MALIGNANT NEOPLASM OF UNSPECIFIED SITE OF LEFT FEMALE BREAST Status: Chronic (6) Diabetes type 2, controlled Code(s): E11.9 - TYPE 2 DIABETES MELLITUS WITHOUT COMPLICATIONS Status: Chronic (7) Dyslipidemia Code(s): E78.5 - HYPERLIPIDEMIA, UNSPECIFIED Status: Chronic (8) Hiatal hernia Code(s): K44.9 - DIAPHRAGMATIC HERNIA WITHOUT OBSTRUCTION OR GANGRENE Status: Chronic (9) Hypertension Code(s): I10 - ESSENTIAL (PRIMARY) HYPERTENSION Status: Chronic (10) Parkinson disease Code(s): G20 - PARKINSON'S DISEASE Status: Chronic (11) Candiduria Code(s): B37.49 - OTHER UROGENITAL CANDIDIASIS Status: Acute (12) Diabetic gastroparesis Code(s): E11.43 - TYPE 2 DIABETES W DIABETIC AUTONOMIC (POLY)NEUROPATHY; K31.84 - GASTROPARESIS Status: Acute - Plan plan discussed w/ family, continue antibiotics, PT/OT, psychologist social, incentive spirometry, out of bed/ambulate, DVT proph w/SCDs Started on Reglan IV yesrterday w/o improvement. -: will consult GI given Hiatal hernia,poor po intake,nausea & rectal pain -: cont Diflucan & empiric ABx. -: supportive care. cont IVF. -: replace and recheck lytes. * . Review of Systems - Review of Systems Other: difficult to obtain.Pt does not talk much and very slow to respond.c/o rectal pain. - Medications/Allergies Allergies/Adverse Reactions: Allergies Allergy/AdvReac Type Severity Reaction Status Date / Time No Known Allergies Allergy Verified 05/26/15 09:14 Medications: Current Medications Acetaminophen (Tylenol) 650 mg PO Q4H PRN PRN Reason: Headache/Fever or Pain Hydrocodone Bitart/Acetaminophen ([place] 5/325) 1 tab PO Q4H PRN PRN Reason: Moderate Pain (4-6) Last Admin: 06/18/17 20:33 Dose: 1 tab Al Hydroxide/Mg Hydroxide (Maalox) 30 ml PO Q6H PRN PRN Reason: Heartburn or Indigestion Amlodipine Besylate (Norvasc) 10 mg PO DAILY [facility] Last Admin: 06/18/17 08:36 Dose: 10 mg Anastrozole (Arimidex) 1 mg PO DAILY [facility] Last Admin: 06/18/17 08:38 Dose: 1 mg Artificial Tears (Tears Naturale) 0 drop EA EYE PRN PRN PRN Reason: Dry Eyes Aspirin (Ecotrin) 81 mg PO DAILY [facility] Last Admin: 06/18/17 08:37 Dose: 81 mg Atorvastatin Calcium (Lipitor) 40 mg PO HS [facility] Last Admin: 06/18/17 20:32 Dose: 40 mg Carbidopa/Levodopa (Sinemet Cr 50/200) 0.5 tab PO TID [facility] Last Admin: 06/18/17 20:36 Dose: 0.5 tab Cholecalciferol (Vitamin D3) 1,000 units PO DAILY [facility] Last Admin: 06/18/17 08:37 Dose: 1,000 units Dextrose/Water (Dextrose 50%) 25 gm IVP PRN PRN PRN Reason: HYPOGLYCEMIA PROTOCOL Digoxin (Lanoxin) 0.125 mg PO DAILY [facility] Last Admin: 06/18/17 08:37 Dose: 0.125 mg Enoxaparin Sodium (Lovenox) 40 mg SC 0900 [facility] Last Admin: 06/18/17 08:36 Dose: 40 mg Glucagon (Glucagon) 1 mg IM PRN PRN PRN Reason: HYPOGLYCEMIA PROTOCOL Guaifenesin (Robitussin Sf) 200 mg PO Q4H PRN PRN Reason: Cough Hydralazine HCl (Apresoline) 10 mg SLOW IVP Q4H PRN PRN Reason: Systolic BP > 180 Sodium Chloride (Normal Saline 0.9%) 1,000 mls @ 70 mls/hr IV .[id number] [facility] Last Admin: 06/18/17 19:38 Dose: 1,000 mls Levofloxacin 250 mg/ Device 50 mls @ 100 mls/hr IVPB DAILY [facility] Last Admin: 06/18/17 10:00 Dose: 50 mls Dextrose/Water (D5w) 1,000 mls @ 0 mls/hr IV INF PRN; As Directed PRN Reason: HYPOGLYCEMIA PROTOCOL Fluconazole/Sodium Chloride (200 mg/ Device) 100 mls @ 100 mls/hr IVPB Q24HR [facility] Last Admin: 06/18/17 10:43 Dose: 100 mls Potassium Phosphate 12 mmol/Miscellaneous Medication 1 each/ Sodium Chloride 254 mls @ 63.5 mls/hr IV NOW [facility] Stop: 06/19/17 12:00 Last Admin: 06/19/17 08:31 Dose: 254 mls Insulin Human Lispro (Humalog) 0 units SC .MODERATE SLIDING SC PRN; Protocol PRN Reason: MODERATE SLIDING SCALE Levothyroxine Sodium (Synthroid) 100 mcg PO 0600 [facility] Last Admin: 06/19/17 05:21 Dose: 100 mcg Lisinopril (Zestril) 20 mg PO QAM [facility] Last Admin: 06/18/17 08:36 Dose: 20 mg Loperamide HCl (Imodium) 2 mg PO PRN PRN PRN Reason: Diarrhea/Loose Stools Loratadine (Claritin) 10 mg PO DAILYPRN PRN PRN Reason: Sinus Symptoms Magnesium Hydroxide (Milk Of Magnesium) 30 ml PO DAILYPRN PRN PRN Reason: Constipation Last Admin: 06/18/17 18:22 Dose: 30 ml Metoclopramide HCl (Reglan) 10 mg IVP Q6H PRN PRN Reason: Nausea/Vomiting Last Admin: 06/16/17 14:08 Dose: 10 mg Metoclopramide HCl (Reglan) 10 mg IVP [facility] Mineral Oil/White Petrolatum (Eucerin Cream) 0 gm TOP BIDPRN PRN PRN Reason: Dry Skin Ondansetron HCl (Zofran Odt) 4 mg PO Q6H PRN PRN Reason: Nausea/Vomiting Last Admin: 06/17/17 17:46 Dose: 4 mg Ondansetron HCl (Zofran) 4 mg IVP Q6H PRN PRN Reason: Nausea/Vomiting Last Admin: 06/18/17 18:22 Dose: 4 mg Pantoprazole Sodium (Protonix) 40 mg IVP 2100 [facility] Last Admin: 06/18/17 20:34 Dose: 40 mg Pentoxifylline (Trental) 400 mg PO TID-[facility] Last Admin: 06/18/17 18:23 Dose: 400 mg Phenol (Chloraseptic [place] 180 Ml Bot) 0 ml PO PRN PRN PRN Reason: Sore Throat Quetiapine Fumarate (Seroquel) 25 mg PO [facility] Last Admin: 06/18/17 20:33 Dose: 25 mg Senna (Senokot) 2 tab PO HSPRN PRN PRN Reason: Constipation Sodium Chloride ([place] Nasal [place] 0.65%) 0 ml EA NARE QIDPRN PRN PRN Reason: Nasal Congestion Tramadol HCl (Ultram) 50 mg PO Q6H PRN PRN Reason: Pain Last Admin: 06/17/17 17:46 Dose: 50 mg Vitamin E (Vitamin E) 400 units PO DAILY [facility] Last Admin: 06/18/17 10:42 Dose: 400 units Zolpidem Tartrate (Ambien) 5 mg PO HSPRN PRN PRN Reason: Insomnia
[2017-06-19] MEDS: Metoclopramide HCl 10 MG/2 ML VIAL IVP SCH ×3 (10:42→18:15)
[2017-06-19] MEDS: Aspirin 81 mg Enteric Coated Tablet PO SCH (10:44)
[2017-06-19] MEDS: Lisinopril 20 MG TAB PO SCH (10:44)
[2017-06-19] MEDS: Amlodipine 10 MG TAB PO SCH (10:44)
[2017-06-19] MEDS: Digoxin 0.125 MG TAB PO SCH (10:44)
[2017-06-19] MEDS: Anastrozole 1 MG TAB PO SCH (10:45)
[2017-06-19] MEDS: Enoxaparin Sodium 40 MG/0.4 ML SYRINGE SC SCH (10:45)
[2017-06-19] MEDS: Sodium Chloride 0.9% 1,000 ML IV SCH ×2 (10:46→20:41)
[2017-06-19] MEDS: Carbidopa/Levodopa CR 50-200 mg Tablet PO SCH ×3 (10:52→20:20)
[2017-06-19] MEDS: Levofloxacin/D5W 250 MG in Premix Bag 1 BAG IVPB SCH ×2 (11:16→15:33)
[2017-06-19] MEDS: Fluconazole In NaCl,Iso-Osm 200 MG in Premix Bag 1 BAG IVPB SCH ×2 (13:11)
[2017-06-19] MEDS: HYDROcodone/Acetaminophen 5/325 mg Tablet PO PRN (13:11)
[2017-06-19] MEDS: Atorvastatin Calcium 40 MG TAB PO SCH (20:20)
[2017-06-19] MEDS: Pantoprazole 40 MG VIAL IVP SCH (20:21)
--- NOTE | 2017-06-19 21:21 | CON ---
DATE OF CONSULTATION: 06/19/2017 HISTORY OF PRESENT ILLNESS: The patient is an 82-year-old -[place] female who reports a 2 w [place] history of nausea and vomiting. Most of the history and physical is obtained via family members in the room. She has been hurting in her abdomen; however, she denies this initially, then when re minded by family members, she was having abdominal pain. She points to her whole abdomen. She has lost approximately 20-25 pounds which family attributes to surgery that she had earlier this year. She denies any diarrhea, any melena, hematochezia. PAST MEDICAL HISTORY: Includes gastroesophageal reflux disease, history of uterine prolapse, osteom yelitis, peripheral polyneuropathy, congestive heart failure, diabetes mellitus, diabetic gastropare sis, hypothyroidism, hiatal hernia, history of Parkinson's. PAST SURGICAL HISTORY: Includes bladder suspension, hysterectomy, herniorrhaphy, mastectomy in left breast; previous fundoplication, cholecystectomy, tubal ligation. ALLERGIES: No known allergies. MEDICATIONS: Include lisinopril 20 mg p.o. daily, insulin sliding scale, Norvasc 10 mg p.o. daily, digoxin 125 mcg p.o. daily, carbidopa/levodopa 1 p.o. t.i.d., pentoxifylline 400 mg p.o. t.i.d., ome prazole 20 mg p.o. daily, levothyroxine 100 mcg p.o. daily, Seroquel 12.5 mg p.o. b.i.d., vitamin E, vitamin D, Zofran, tramadol, Arimidex, aspirin, and vitamin B6. SOCIAL HISTORY: She does not smoke or drink. FAMILY HISTORY: Negative for GI or liver disease. REVIEW OF SYSTEMS: Constitutional: Positive weight loss. Negative for fever or chills. Eyes: No blurred vision, mackenzie ble vision. ENT: No sore throat or earaches. Cardiovascular: No chest pain or palpitations. Pul monary: No shortness of breath, cough or wheezing. Gastrointestinal: See above. : No hematuri a or dysuria. Musculoskeletal: No joint pain or muscle weakness. Skin: No rashes. PHYSICAL EXAMINATION: GENERAL: Shows an elderly white -[place] female in no acute distress. VITAL SIGNS: Temperature 97.8, pulse 84, respiratory rate 20, blood pressure 128/73. HEENT: Unremarkable. NECK: Supple. CHEST: Clear. CARDIOVASCULAR: Regular rate and rhythm. ABDOMEN: Soft, nontender, without organomegaly or masses. Bowel sounds present and normoactive. RECTAL: Deferred. EXTREMITIES: Normal. NEUROLOGIC: Nonfocal. LABORATORY DATA: Shows a normal CBC. Chemistry shows potassium 3.1, glucose 141. Phosphorus 1.5. Lipase is 7. Urinalysis showed greater than 50 wbc's. Abdominal and pelvic CT from 06/15/2017 luzmaria wed large hiatal hernia, postop cholecystectomy changes and no acute abnormalities otherwise. Abdom inal series on 05/19/2016 was the last abdominal films prior to that CT and showed no abnormalities. ASSESSMENT: 1. Persistent nausea, vomiting - gastroesophageal reflux disease versus [place] fundoplication compl ications versus diabetic gastroparesis. 2. Rectal pain. 3. History of colon polyps -- reviewing clinic record shows the patient had a colonoscopy in 2009 t hat showed adenomatous colon polyps. RECOMMENDATIONS: 1. EGD in a.m. 2. PPI. 3. Rectal exam at the time of EGD to rule out impaction or other source of her abdominal pain or re ctal pain.
[2017-06-20] MEDS: Levothyroxine Sodium 100 MCG TAB PO SCH (06:05)
[2017-06-20 07:00] LABS: Chloride 104 mmol/L (98-107)
[2017-06-20 07:01] LABS: Calcium 8.5 mg/dL (7.8-10.44); Magnesium 1.7 mg/dL (1.6-2.6)
[2017-06-20 07:03] LABS: Anion Gap 7 mmol/L (10-20); Carbon Dioxide 29 mmol/L (23-31)
[2017-06-20 07:05] LABS: Calc. Creatinine Clearance 50 mL/min (70-130); Estimated GFR-MDRD 71
[2017-06-20 07:06] LABS: BUN (Urea Nitrogen) 15 mg/dL (9.8-20.1)
[2017-06-20 07:19] LABS: Phosphorus 2.1 mg/dL (2.3-4.7)
[2017-06-20] MEDS ORDERED: Potassium Phosphate 30 MMOL, Admixture Fee 1 EACH in Sodium Chloride 0.9% 500 ML IVPB SCH (08:00)
[2017-06-20] MEDS: NS 0.9% w/ 20 MEQ KCL 1,000 ML/1,000 ML BAG IV SCH ×2 (08:12→22:57)
[2017-06-20] MEDS: Enoxaparin Sodium 40 MG/0.4 ML SYRINGE SC SCH (08:32)
[2017-06-20] MEDS: Amlodipine 10 MG TAB PO SCH (08:32)
[2017-06-20] MEDS: Aspirin 81 mg Enteric Coated Tablet PO SCH (08:32)
[2017-06-20] MEDS: Lisinopril 20 MG TAB PO SCH (08:32)
[2017-06-20] MEDS: Carbidopa/Levodopa CR 50-200 mg Tablet PO SCH ×3 (10:54→20:44)
[2017-06-20] MEDS: Metoclopramide HCl 10 MG/2 ML VIAL IVP SCH ×3 (10:54→16:34)
[2017-06-20] MEDS: Digoxin 0.125 MG TAB PO SCH (10:54)
[2017-06-20] MEDS: Anastrozole 1 MG TAB PO SCH (10:54)
[2017-06-20] MEDS: Fluconazole In NaCl,Iso-Osm 200 MG in Premix Bag 1 BAG IVPB SCH ×2 (11:11)
[2017-06-20] MEDS ORDERED: Albuterol Sulfate HFA (OR ONLY) ONE (14:19)
[2017-06-20] MEDS ORDERED: Glycopyrrolate 0.2 MG/ML 5 ML SYRINGE ONE (14:33)
--- NOTE | 2017-06-20 14:37 | PDOC.PN ---
- Subjective Encounter Start Date: 06/20/17 Encounter Start Time: 08:30 -: old records requested/rev Patient seen and examined. No new complaints. No overnight events - Objective Resuscitation Status: Resuscitation Status FULL:Full Resuscitation MAR Reviewed: Yes Vital Signs & Weight: Vital Signs (12 hours) Temp Pulse Resp BP BP Pulse Ox 06/20/17 11:33 97.4 F L 76 16 156/79 H 95 06/20/17 10:54 72 06/20/17 08:32 72 128/73 06/20/17 08:00 98.2 F 72 18 98 06/20/17 07:25 98 F 72 16 149/78 H 94 L 06/20/17 05:30 98.0 F 78 18 129/59 L 100 06/20/17 03:30 99 Weight Weight 143 lb 4.807 oz I&O: 06/19/17 06/20/17 06/21/17 06:59 06:59 06:59 Intake Total 1260 1370 Output Total 700 Balance 1260 670 Result Diagrams: 06/17/17 03:58 06/20/17 06:32 Additional Labs: Accuchecks 06/20/17 06/20/17 06/19/17 11:08 04:59 19:11 POC Glucose 149 H 155 H 210 H 06/19/17 06/19/17 16:57 11:08 POC Glucose 266 H 174 H Phys Exam - Physical Examination Constitutional: NAD HEENT: PERRLA, moist MMs, sclera anicteric Neck: no JVD, supple Respiratory: no wheezing, no rales, no rhonchi Cardiovascular: RRR, no significant murmur, no rub Gastrointestinal: soft, non-tender, no distention, positive bowel sounds Musculoskeletal: no edema, pulses present Neurological: non-focal, normal sensation Lymphatic: no nodes Psychiatric: normal affect Skin: no rash, normal turgor Dx/Plan (1) Acute kidney failure Status: Resolved (2) Dehydration Code(s): E86.0 - DEHYDRATION Status: Acute Comment: due to poor PO intake (3) Intractable nausea and vomiting Code(s): R11.2 - NAUSEA WITH VOMITING, UNSPECIFIED Status: Acute (4) UTI (urinary tract infection) Status: Acute Comment: Culture negative (5) Breast cancer, left Code(s): C50.912 - MALIGNANT NEOPLASM OF UNSPECIFIED SITE OF LEFT FEMALE BREAST Status: Chronic (6) Diabetes type 2, controlled Code(s): E11.9 - TYPE 2 DIABETES MELLITUS WITHOUT COMPLICATIONS Status: Chronic (7) Dyslipidemia Code(s): E78.5 - HYPERLIPIDEMIA, UNSPECIFIED Status: Chronic (8) Hiatal hernia Code(s): K44.9 - DIAPHRAGMATIC HERNIA WITHOUT OBSTRUCTION OR GANGRENE Status: Chronic (9) Hypertension Code(s): I10 - ESSENTIAL (PRIMARY) HYPERTENSION Status: Chronic (10) Parkinson disease Code(s): G20 - PARKINSON'S DISEASE Status: Chronic (11) Hypokalemia Code(s): E87.6 - HYPOKALEMIA Status: Acute (12) Hypophosphatemia Code(s): E83.39 - OTHER DISORDERS OF PHOSPHORUS METABOLISM Status: Acute - Plan cont current plan of care, plan discussed w/ family * replace potassium phosphate * today EGD * continue IVF NS with KCL * medication reviewed as below * symptomatic treatment. * continue for now Diflucan and levaquin Review of Systems - Review of Systems ENT: negative: Ear Pain, Ear Discharge, Nose Pain, Nose Discharge, Nose Congestion, Mouth Pain, Mouth Swelling, Throat Pain, Throat Swelling, Other Respiratory: negative: Cough, Dry, Shortness of Breath, Hemoptysis, SOB with Excertion, Pleuritic Pain, Sputum, Wheezing Cardiovascular: negative: Chest Pain, Palpitations, Orthopnea, Paroxysmal Noc. Dyspnea, Edema, Light Headedness, Other Gastrointestinal: negative: Nausea, Vomiting, Abdominal Pain, Diarrhea, Constipation, Melena, Hematochezia, Other Genitourinary: negative: Dysuria, Frequency, Incontinence, Hematuria, Retention , Other Musculoskeletal: negative: Neck Pain, Shoulder Pain, Arm Pain, Back Pain, Hand Pain, Leg Pain, Foot Pain, Other - Medications/Allergies Allergies/Adverse Reactions: Allergies Allergy/AdvReac Type Severity Reaction Status Date / Time No Known Allergies Allergy Verified 05/26/15 09:14 Medications: Current Medications Acetaminophen (Tylenol) 650 mg PO Q4H PRN PRN Reason: Headache/Fever or Pain Hydrocodone Bitart/Acetaminophen ([place] 5/325) 1 tab PO Q4H PRN PRN Reason: Moderate Pain (4-6) Last Admin: 06/19/17 13:11 Dose: 1 tab Al Hydroxide/Mg Hydroxide (Maalox) 30 ml PO Q6H PRN PRN Reason: Heartburn or Indigestion Amlodipine Besylate (Norvasc) 10 mg PO DAILY [facility] Last Admin: 06/20/17 08:32 Dose: Not Given Anastrozole (Arimidex) 1 mg PO DAILY [facility] Last Admin: 06/20/17 10:54 Dose: Not Given Artificial Tears (Tears Naturale) 0 drop EA EYE PRN PRN PRN Reason: Dry Eyes Aspirin (Ecotrin) 81 mg PO DAILY [facility] Last Admin: 06/20/17 08:32 Dose: Not Given Atorvastatin Calcium (Lipitor) 40 mg PO HS [facility] Last Admin: 06/19/17 20:20 Dose: 40 mg Carbidopa/Levodopa (Sinemet Cr 50/200) 0.5 tab PO TID [facility] Last Admin: 06/20/17 10:54 Dose: Not Given Cholecalciferol (Vitamin D3) 1,000 units PO DAILY [facility] Last Admin: 06/20/17 08:32 Dose: Not Given Dextrose/Water (Dextrose 50%) 25 gm IVP PRN PRN PRN Reason: HYPOGLYCEMIA PROTOCOL Digoxin (Lanoxin) 0.125 mg PO DAILY [facility] Last Admin: 06/20/17 10:54 Dose: Not Given Enoxaparin Sodium (Lovenox) 40 mg SC 0900 [facility] Last Admin: 06/20/17 08:32 Dose: Not Given Glucagon (Glucagon) 1 mg IM PRN PRN PRN Reason: HYPOGLYCEMIA PROTOCOL Guaifenesin (Robitussin Sf) 200 mg PO Q4H PRN PRN Reason: Cough Hydralazine HCl (Apresoline) 10 mg SLOW IVP Q4H PRN PRN Reason: Systolic BP > 180 Dextrose/Water (D5w) 1,000 mls @ 0 mls/hr IV INF PRN; As Directed PRN Reason: HYPOGLYCEMIA PROTOCOL Fluconazole/Sodium Chloride (200 mg/ Device) 100 mls @ 100 mls/hr IVPB Q24HR [facility] Last Admin: 06/20/17 11:11 Dose: 100 mls Levofloxacin 250 mg/ Device 50 mls @ 100 mls/hr IVPB 1400 [facility] Last Admin: 06/19/17 15:33 Dose: 50 mls Potassium Chloride/Sodium Chloride (Ns 0.9% W/ 20 Meq Kcl) 1,000 ml in 1,000 mls @ 75 mls/hr IV .[id number] [facility] Last Admin: 06/20/17 08:12 Dose: 1,000 mls Insulin Human Lispro (Humalog) 0 units SC .MODERATE SLIDING SC PRN; Protocol PRN Reason: MODERATE SLIDING SCALE Levothyroxine Sodium (Synthroid) 100 mcg PO 0600 [facility] Last Admin: 06/20/17 06:05 Dose: Not Given Lisinopril (Zestril) 20 mg PO QAM [facility] Last Admin: 06/20/17 08:32 Dose: Not Given Loperamide HCl (Imodium) 2 mg PO PRN PRN PRN Reason: Diarrhea/Loose Stools Loratadine (Claritin) 10 mg PO DAILYPRN PRN PRN Reason: Sinus Symptoms Magnesium Hydroxide (Milk Of Magnesium) 30 ml PO DAILYPRN PRN PRN Reason: Constipation Last Admin: 06/18/17 18:22 Dose: 30 ml Metoclopramide HCl (Reglan) 10 mg IVP Q6H PRN PRN Reason: Nausea/Vomiting Last Admin: 06/16/17 14:08 Dose: 10 mg Metoclopramide HCl (Reglan) 10 mg IVP [facility] Last Admin: 06/20/17 11:15 Dose: 10 mg Mineral Oil/White Petrolatum (Eucerin Cream) 0 gm TOP BIDPRN PRN PRN Reason: Dry Skin Ondansetron HCl (Zofran Odt) 4 mg PO Q6H PRN PRN Reason: Nausea/Vomiting Last Admin: 06/17/17 17:46 Dose: 4 mg Ondansetron HCl (Zofran) 4 mg IVP Q6H PRN PRN Reason: Nausea/Vomiting Last Admin: 06/18/17 18:22 Dose: 4 mg Pantoprazole Sodium (Protonix) 40 mg IVP 2100 [facility] Last Admin: 06/19/17 20:21 Dose: 40 mg Pentoxifylline (Trental) 400 mg PO TID-[facility] Last Admin: 06/20/17 11:15 Dose: Not Given Phenol (Chloraseptic [place] 180 Ml Bot) 0 ml PO PRN PRN PRN Reason: Sore Throat Quetiapine Fumarate (Seroquel) 25 mg PO HS [facility] Last Admin: 06/19/17 20:21 Dose: 25 mg Senna (Senokot) 2 tab PO HSPRN PRN PRN Reason: Constipation Sodium Chloride ([place] Nasal [place] 0.65%) 0 ml EA NARE QIDPRN PRN PRN Reason: Nasal Congestion Sodium Chloride (Flush - Normal Saline) 10 ml IVF Q12HR [facility] Last Admin: 06/20/17 08:33 Dose: Not Given Sodium Chloride (Flush - Normal Saline) 10 ml IVF PRN PRN PRN Reason: Saline Flush Tramadol HCl (Ultram) 50 mg PO Q6H PRN PRN Reason: Pain Last Admin: 06/17/17 17:46 Dose: 50 mg Vitamin E (Vitamin E) 400 units PO DAILY [facility] Last Admin: 06/20/17 08:33 Dose: Not Given Zolpidem Tartrate (Ambien) 5 mg PO HSPRN PRN PRN Reason: Insomnia
[2017-06-20] MEDS: Levofloxacin/D5W 250 MG in Premix Bag 1 BAG IVPB SCH (15:07)
[2017-06-20] MEDS ORDERED: Lidocaine 1% PF 5 ML VIAL ONE (15:35)
[2017-06-20] MEDS ORDERED: Propofol 200 MG/20 ML VIAL ONE (15:35)
[2017-06-20] MEDS: Milk Of Magnesia 30 ML UDCUP PO PRN (18:23)
[2017-06-20] MEDS: Atorvastatin Calcium 40 MG TAB PO SCH (20:44)
[2017-06-20] MEDS: HYDROcodone/Acetaminophen 5/325 mg Tablet PO PRN (20:45)
[2017-06-20] MEDS: Pantoprazole 40 MG VIAL IVP SCH (20:45)
[2017-06-21] MEDS: NS 0.9% w/ 20 MEQ KCL 1,000 ML/1,000 ML BAG IV SCH (05:22)
[2017-06-21] MEDS: Levothyroxine Sodium 100 MCG TAB PO SCH (05:24)
--- NOTE | 2017-06-21 06:34 | OP ---
PREPROCEDURE DIAGNOSES: Vomitting, persistent nausea. POSTPROCEDURE DIAGNOSES: 1. Presbyesophagus 2. Evidence of previous fundoplication with slight slip of hernia above the wrap, but no paraesopha geal hernia nor there is any signs of obstruction at the GE junction. The scope passed easily with no resistance. 3. Normal stomach. 4. Normal duodenum except for about 0.7 mm submucosal nodule in the anterior inferior aspect of the bulb just inside the pyloric channel. Multiple biopsies obtained. ANESTHESIA: TIVA. RECOMMENDATIONS: 1. Start diet if patient has persistent symptoms, consider esophagram, upper GI and small bowel fol low through for further GI tract imaging. 2. Due to the patient's complaints of rectal pain, rectal exam was performed at the time of the pro cedure and there was no evidence of fissures or tears or masses or impaction. PROCEDURE IN DETAIL: After the patient was informed of the risks, benefits, possible complications of endoscopy including perforation, bleeding, reactions to medication and aspiration, informed conse nt was obtained. The patient brought to endoscopy suite where she was sedated in gradual fashion. Once was comfortable, a bite block was placed in incisural orifice. The endoscope was advanced thro ugh the esophagus, stomach, and into the second and third portions of duodenum. The esophagus was n ormal except for mild presbyesophagus and tortuosity with no evidence of erosions or ulcers were see n. The GE junction was passed easily. There is a evidence of previous fundoplication with a slight split there but no paraesophageal hernia and we could advance the scope beyond this area very easil y; retroflexed views confirmed this and showed no other lesions. Forward views in the stomach were normal. The duodenal bulb and duodenum, third portion were normal. There effect in the mucos a or retained GI gastric contents. There was a small, less than 7 mm nodule in the anterior inferio r duodenal bulb adjacent to the pylorus. Biopsies were obtained and the scope was then removed. Th e patient tolerated the procedure well with no complications.
[2017-06-21 06:37] LABS: Anion Gap 8 mmol/L (10-20); BUN (Urea Nitrogen) 14 mg/dL (9.8-20.1); Calc. Creatinine Clearance 59 mL/min (70-130); Calcium 7.7 mg/dL (7.8-10.44); Carbon Dioxide 25 mmol/L (23-31); Chloride 108 mmol/L (98-107); Estimated GFR-MDRD 86; Phosphorus 2.2 mg/dL (2.3-4.7)
[2017-06-21] MEDS: Metoclopramide HCl 10 MG/2 ML VIAL IVP SCH ×2 (07:50→11:19)
[2017-06-21] MEDS: Digoxin 0.125 MG TAB PO SCH (08:48)
[2017-06-21] MEDS: Carbidopa/Levodopa CR 50-200 mg Tablet PO SCH (08:48)
[2017-06-21] MEDS: Lisinopril 20 MG TAB PO SCH (08:48)
[2017-06-21] MEDS: Aspirin 81 mg Enteric Coated Tablet PO SCH (08:49)
[2017-06-21] MEDS: Amlodipine 10 MG TAB PO SCH (08:49)
[2017-06-21] MEDS: Anastrozole 1 MG TAB PO SCH (08:50)
[2017-06-21] MEDS: Enoxaparin Sodium 40 MG/0.4 ML SYRINGE SC SCH (08:51)
[2017-06-21 11:18] VITALS: BP 115/64; TEMP 98.7
[2017-06-21] MEDS: Fluconazole In NaCl,Iso-Osm 200 MG in Premix Bag 1 BAG IVPB SCH ×2 (11:19)
--- NOTE | 2017-06-21 11:21 | DIS ---
PRIMARY CARE PHYSICIAN: Dr. Kaylynn Ghotra DATE OF ADMISSION: 06/16/2017 DATE OF DISCHARGE: 06/21/2017 DISCHARGE DISPOSITION: Home. PRIMARY DISCHARGE DIAGNOSES: 1. Acute kidney failure, prerenal, improved. 2. Hypokalemia, corrected. 3. Intractable nausea and vomiting controlled. 4. Urinary tract infection treated in hospital. 5. Acute kidney failure, improved. 6. Abnormal electrolytes, corrected. SECONDARY DISCHARGE DIAGNOSES: Presbyesophagus, diabetic gastroparesis, Parkinson's disease, hiatal hernia, diabetes type 2, dyslipidemia, hypertension, history of left breast cancer. PRIMARY PROCEDURE/OPERATION: Upper endoscopy showed Presbyesophagus, normal stomach, normal duodenu m, evidence of fundoplication. RADIOLOGICAL INVESTIGATION: Abdomen and pelvis CT scan unremarkable other than hiatal hernia. SIGNIFICANT LABS: Hemoglobin 14.7, creatinine 0.78. Electrolytes normalized. Urinalysis suggestiv e of UTI. Urine culture was negative. DISCHARGE MEDICATIONS: Amlodipine 10 mg p.o. daily, Arimidex 1 mg p.o. daily, aspirin 81 mg p.o. da ernestina, Lipitor 40 mg p.o. daily, carbidopa/levodopa 1 tablet p.o. t.i.d., vitamin D3 1000 units p.o. d aily, digoxin 0.125 mg p.o. daily, NovoLog insulin as per sliding scale, Lantus insulin 15 units sub cu daily, Synthroid 100 mcg p.o. daily, lisinopril 20 mg p.o. daily, Reglan 10 mg t.i.d. p.r.n., ome prazole 40 mg p.o. daily, Zofran 4 mg q.6. p.r.n., pentoxifylline 400 mg p.o. t.i.d., Seroquel 25 m g p.o. at bedtime, vitamin E 400 units p.o. daily, tramadol 50 mg 1 or 2 tablets q.6 hourly p.r.n. CONTRAINDICATIONS: None. CODE STATUS: FULL CODE. INPATIENT CONSULTANTS: Dr. Cuello was consulted while in hospital who did upper endoscopy. TEST RESULTS PENDING ON DISCHARGE: Biopsy from the duodenum. DISCHARGE PLAN: Post hospital, the patient will follow up with primary care physician in 1 week. HOSPITAL COURSE: An 82-year-old female who has above-mentioned medical problem who was admitted by me on 06/16/2017. She initially went to [facility] for nausea, vomiting. She was diagno sed with urinary tract infection. She had abdomen and pelvis CT scan which was unremarkable other t mcmahon hiatal hernia. The patient was admitted to our hospital on the medical floor. We treated her s ymptomatically for nausea and vomiting. We also treated her for a urinary tract infection. Despite couple of days treatment symptomatically she was persistently having nausea and vomiting and that i s why we consulted consumer marketing analyst. They did upper endoscopy. Upper endoscopy was essentially u nremarkable for acute finding. Rectal examination was also performed which was also unremarkable. The patient is now stabilized. Her electrolytes were replaced while in hospital. The patient has f inished a complete course of treatment for UTI while in hospital. We prescribed Reglan and Zofran o n p.r.n. basis to use at home. We are continuing all her home medication while in hospital on disch arge. The patient is seen and examined at bedside today. Plan of care discussed with the family member. Review of systems negative. PHYSICAL EXAMINATION: VITAL SIGNS: Currently temperature 98.5, pulse 76, respiratory rate 16, saturation 99%, blood press ure 135/72, weight 143 pounds. GENERAL: The patient is alert, awake, no acute distress. HEAD: Normocephalic, atraumatic. LUNGS: Clear. CARDIAC: S1, S2 regular without any murmur. ABDOMEN: Soft and benign. EXTREMITIES: No edema. NEUROLOGIC: Nonfocal examination. Overall, patient is medically stable for discharge today.
== END 2017-06-21 12:07 | disposition home or self-care (01) | DRG 683 ==
LOC: ERS 20:09 → T4-B 06-16 02:00
PROVIDERS: ADMIT Internal Medicine; ATTEND Internal Medicine
PROC: 0DB98ZX Excision of Duodenum, Via Natural or Artificial Opening Endoscopic, Diagnostic (ICD-10-PCS; principal; 2017-06-20)
DX: N17.9 Acute kidney failure, unspecified (principal); B37.49 Other urogenital candidiasis; G20 Parkinson's disease; E11.22 Type 2 diabetes mellitus with diabetic chronic kidney disease; K31.84 Gastroparesis; E11.43 Type 2 diabetes mellitus with diabetic autonomic (poly)neuropathy; E83.39 Other disorders of phosphorus metabolism; E86.0 Dehydration; E03.9 Hypothyroidism, unspecified; E78.5 Hyperlipidemia, unspecified; I73.9 Peripheral vascular disease, unspecified; K21.9 Gastro-esophageal reflux disease without esophagitis; K44.9 Diaphragmatic hernia without obstruction or gangrene; Z79.811 Long term (current) use of aromatase inhibitors; Z79.82 Long term (current) use of aspirin; Z85.3 Personal history of malignant neoplasm of breast; I12.9 Hypertensive chronic kidney disease with stage 1 through stage 4 chronic kidney disease, or unspecified chronic kidney disease; N18.2 Chronic kidney disease, stage 2 (mild); E87.6 Hypokalemia; K22.8 Other specified diseases of esophagus; Z86.010 Personal history of colon polyps
CPT/HCPCS: 36415; 36416; 80048; 83690; 83735; 84100; 85025; 87086; 88305; 88342; 90471; 90682; 90732; 96360; 96361; A4216; C9113; G0008; G0009; G8978-GP-CM; G8979-GP-CK; G8987-GO-CL; G8988-GO-CJ; G8996-GN-CK; G8997-GN-CK; J0696; J1450; J1650; J1815; J1956; J2001; J2405; J2704; J2765; J7050; Q0162; Q2036

== ENCOUNTER 2017-08-30 12:01 | Inpatient (IN) | payer MEDICARE, MEDICAID ==
[2017-08-30] MEDS ORDERED: Metoclopramide HCl 10 MG/2 ML VIAL ONE (12:25)
[2017-08-30] MEDS ORDERED: Ondansetron HCl/PF 4 MG/2 ML Vial ONE (12:25)
[2017-08-30 13:05] LABS: #Lymphocytes 0.8 thou/uL (1.20-3.40); #Monocytes 0.2 thou/uL (0.11-0.59); #Neutrophils 7.4 thou/uL (1.40-6.50); %Basophils 0.1 % (0.0-1.0); %Eosinophils 0.2 % (0.0-10.0); %Lymphocytes 9.4 % (21.0-51.0); %Monocytes 2.1 % (0.0-10.0); %Neutrophils 88.2 % (42.0-75.0); Hemoglobin 13.9 g/dL (12.0-16.0); Mean Corpuscular HGB CONC 31.2 g/dL (32.0-36.0); Mean Corpuscular Hemoglobin 28.3 pg (27.0-31.0); Mean Corpuscular Volume 90.6 fl (81.0-99.0); Mean Platelet Volume 8.6 fL (7.4-10.4); Platelet Count 206 thou/uL (130-400); Red Blood Cell (RBC) Count 4.91 mill/uL (4.20-5.40); White Blood Cell (WBC) Count 8.4 thou/uL (4.8-10.8)
[2017-08-30] MEDS ORDERED: hydrALAZINE 20 MG/ML VIAL ONE (13:12)
[2017-08-30 13:28] LABS: ALT (SGPT) 36 U/L (8-55); AST (SGOT) 27 U/L (5-34); Albumin 4.2 g/dL (3.4-4.8); Alkaline Phosphatase 67 U/L (40-150); Anion Gap 16 mmol/L (10-20); BUN (Urea Nitrogen) 14 mg/dL (9.8-20.1); Bilirubin, Total 0.4 mg/dL (0.2-1.2); CK (CPK) 109 U/L (29-168); Calc. Creatinine Clearance 0 mL/min (70-130); Carbon Dioxide 25 mmol/L (23-31); Chloride 100 mmol/L (98-107); Estimated GFR-MDRD 86; Globulin 3.6 g/dL (2.4-3.5); Glucose 129 mg/dL (83-110); Lipase 10 U/L (8-78); Potassium 3.2 mmol/L (3.5-5.1); Protein, Total 7.8 g/dL (6.0-8.3); Sodium 138 mmol/L (136-145)
[2017-08-30 13:32] LABS: CKMB 3.8 ng/mL (0-6.6); Troponin I 0.013 ng/mL (< 0.028)
--- NOTE | 2017-08-30 13:37 | RAD ---
ACUTE ABDOMINAL SERIES 3 VIEWS: COMPARISON: 05/19/16. HISTORY: Nausea and vomiting with chest and abdominal pain. FINDINGS: The cardiac silhouette is stable. No evidence of lobar consolidation. There are metallic clips of t he left axilla and overlying the right upper abdomen. Paucity of bowel gas noted. There is no free air seen. Scattered osseous degenerative change is present. IMPRESSION: No acute process evident. POS: [facility]
[2017-08-30] MEDS ORDERED: Ketorolac Tromethamine 30 MG/ML VIAL ONE (15:35)
[2017-08-30] MEDS ORDERED: Ondansetron HCl/PF 4 MG/2 ML Vial IVP PRN ×2 (17:14→18:46)
[2017-08-30] MEDS ORDERED: Sodium Chloride 0.9% 1,000 ML IV SCH (17:14)
[2017-08-30] MEDS ORDERED: Ondansetron ODT 4 MG TAB SL PRN (17:14)
[2017-08-30] MEDS ORDERED: Acetaminophen 650 MG Suppository PR PRN (18:46)
[2017-08-30] MEDS ORDERED: Nitroglycerin 0.4 MG TAB (25 Tab Bottle) PO PRN (18:46)
[2017-08-30] MEDS ORDERED: Ondansetron ODT 4 MG TAB PO PRN (18:46)
[2017-08-30] MEDS ORDERED: Mag-Al 1200 mg/1200 mg/30 ML UDCUP PO PRN (18:46)
[2017-08-30] MEDS ORDERED: Calcium Carbonate 500 MG ChewTAB PO PRN (18:46)
[2017-08-30] MEDS ORDERED: Ondansetron ODT 8 MG TAB SL PRN (18:50)
[2017-08-30] MEDS ORDERED: Promethazine HCl 12.5 MG in Sodium Chloride 0.9% 50 ML IVPB PRN (18:51)
[2017-08-30] MEDS ORDERED: cloNIDine 0.1 MG TAB PO PRN (18:53)
[2017-08-30] MEDS ORDERED: Enalaprilat Dihydrate 1.25 MG/ML VIAL SLOW IVP PRN (18:54)
[2017-08-30] MEDS ORDERED: cloNIDine 0.1mg/24 Hour PATCH TD SCH (19:00)
--- NOTE | 2017-08-30 19:03 | HP ---
DATE OF ADMISSION: 08/30/2017 PRIMARY CARE PHYSICIAN: Kaylynn Ghotra M.D. CHIEF COMPLAINT: Intractable nausea and vomiting. CODE STATUS: FULL CODE. SURROGATE DECISION-MAKER: Patient makes her own decisions with the help of her family. Most of the time, patient's daughter makes her decisions. HISTORY OF PRESENT ILLNESS: Patient is an 82-year-old female with presbyesophagus with previous fund oplication, presented to the hospital with nausea and vomiting. Her last hospitalization at this [facility] for similar complaint was in 05/2017. She underwent EGD that was consistent with presbyesophag us. Stomach was normal. She was discharged to home on p.r.n. antiemetics. Since last night, the patient developed intractable nausea and vomiting which is progressively gettin g worse. She is unable to keep any food down. Her last bowel movement was 2 days ago. She also had some epigastric discomfort without any radiation. The epigastric pain was mainly during the vomitin g episode. It was mild to moderate in intensity. She denies any headache, double vision, blurring o f vision of vertigo. No jaundice reported. She has also lost appetite recently. In the emergency room, her initial vital signs showed temperature 97.9, respirations 22, pulse rate o f 100 with blood pressure 181/89 with O2 saturation 100% on room air. Her acute abdominal series was negative for acute findings. EKG showed sinus rhythm without significant ST-T wave changes. There were intermittent PACs on the EKG. Potassium was 3.2 with BUN of 14, creatinine 0.78. She received Phenergan, hydralazine, Reglan, Zofran with IV fluids in the emergency room. PAST MEDICAL HISTORY: 1. Diabetic gastroparesis. 2. Recent diagnosis of presbyesophagus. 3. Parkinson disease. 4. Hiatal hernia. 5. Diabetes mellitus type 2. 6. Dyslipidemia. 7. Hypertension. 8. Breast cancer. 9. Schizoaffective disorder. 10. Peripheral neuropathy. 11. History of uterine prolapse. 12. Peripheral vascular disease. 13. History of external hemorrhoids. PAST SURGICAL HISTORY: 1. Bladder suspension, hernia repair. 2. Hysterectomy. 3. Mastectomy of the left breast. 4. Gastric fundoplication. 5. Cholecystectomy. 6. Tubal ligation. ALLERGIES: No known drug allergies. CURRENT HOME MEDICATIONS: The patient does not remember all of her home medications. The family sta sumi that the medications have not changed recently. SOCIAL HISTORY: As discussed above, patient currently lives at home. She walks with a cane and walk er. FAMILY HISTORY: Negative for heart disease or malignancy. REVIEW OF SYSTEMS: The following complete review of systems was negative, unless otherwise mentioned in the HPI or below: Constitutional: Weight loss or gain, ability to conduct usual activities. Skin: Rash, itching. Eyes: Double vision, pain. ENT/Mouth: Nose bleeding, neck stiffness, pain, tenderness. Cardiovascular: Palpitations, dyspnea on exertion, orthopnea. Respiratory: Shortness of breath, wheezing, cough, hemoptysis, fever or night sweats. Gastrointestinal: Poor appetite, abdominal pain, heartburn, nausea, vomiting, constipation, or diarr hea. Genitourinary: Urgency, frequency, dysuria, nocturia. Musculoskeletal: Pain, swelling. Neurologic/Psychiatric: Anxiety, depression. Allergy/Immunologic: Skin rash, bleeding tendency. PHYSICAL EXAMINATION: VITAL SIGNS: As discussed above. GENERAL: An 82-year-old female, thin built with intractable nausea, vomiting, emesis bag at the beds marylin. HEENT: Head is atraumatic, normocephalic, sclerae are anicteric. Dry mucous membranes. No oral les ion. NECK: Supple, no JVD appreciated. No carotid bruit. LUNGS: Clear to auscultation bilaterally. No wheezing or rales. HEART: S1 and S2 present. Regular rate and rhythm, 2/6 systolic murmur over the mitral area. ABDOMEN: Soft. There was epigastric tenderness without any rebound or guarding. EXTREMITIES: No edema or calf tenderness. NEUROLOGIC: Grossly nonfocal, moves all four extremities. PSYCHIATRY: Alert, awake, oriented x3. SKIN: Warm and dry. LYMPH NODES: No palpable lymph nodes in the neck. PERIPHERAL VASCULAR: Radial pulses palpable bilaterally. MUSCULOSKELETAL: No joint swelling or tenderness. SKIN: Warm and dry. LYMPH NODES: No palpable lymph nodes in the neck. LABORATORY DATA AND IMAGING DATA: 1. Potassium 3.2, creatinine 0.78, sodium 138. Troponins were negative. WBC was 8.4 with hemoglobi n 13.9. 2. EKG and acute abdominal series by my review as discussed above. IMPRESSION: 1. Intractable nausea and vomiting, probably secondary to presbyesophagus/diabetic gastroparesis. 2. Epigastric discomfort/chest discomfort. Rule out acute coronary syndrome. 3. 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 4. Gastroesophageal reflux disease. 5. History of Clarissa fundoplication. 6. Dyslipidemia. 7. Hypertension, uncontrolled. 8. Parkinson's disease. 9. Hypokalemia. 10. Chronic kidney disease stage 2. 11. Dehydration. 12. Physical deconditioning. PLAN: The patient will be monitored on the telemetry unit. Serial cardiac enzymes will be obtained. We will continue gentle IV hydration. We will consult Gastroenterology. We will avoid Reglan due to Parkinson's disease. Insulin sliding scale. Continue Zofran with intermittent Phenergan. We janneth l keep her n.p.o. except for ice chips. Resume home medications once confirmed. Plan of care was discussed with the patient and the family at the bedside. They stated understanding .
[2017-08-30 19:21] LABS: Troponin I 0.034 ng/mL (< 0.028)
[2017-08-30] MEDS: Ondansetron HCl/PF 4 MG/2 ML Vial IVP SCH ×2 (19:33→23:55)
[2017-08-30] MEDS ORDERED: Sodium Chloride 0.9% 10 ML ONE ×2 (19:44→19:45)
[2017-08-30] MEDS ORDERED: Promethazine HCl 25 MG/ML VIAL SLOW IVP PRN (19:55)
[2017-08-30] MEDS: Pantoprazole 40 MG VIAL IVP SCH (19:56)
[2017-08-30] MEDS: Nitroglycerin 2% Ointment 1 INCH/1 GM Packet TOP SCH (19:57)
[2017-08-30] MEDS: Amlodipine 5 MG TAB PO SCH (19:59)
[2017-08-30] MEDS: Sodium Chloride 0.9% 1,000 ML IV SCH (20:01)
[2017-08-30 22:42] LABS: Bilirubin Negative (Negative); Blood, Urine Moderate (Negative); Clarity CLOUDY (Clear); Glucose, Urine (Dipstick) 250 mg/dL (Negative); Leukocyte Negative (Negative); Nitrite Negative (Negative); Protein, Urine (Dipstick) 300 mg/dL (Neg-Trace); Specific Gravity, Urine 1.018 (1.002-1.036)
[2017-08-30 22:44] LABS: Bacteria/HPF 4+ HPF (None Seen); Hyaline Casts/LPF 0-3 HYALINE CAST LPF (0-3 Hyaline); Pathc Cast-AUWi Flag 0.23 (0-2.49); Squamous Epithelial None Seen HPF (0-3); WBC/HPF 21-50 HPF (0-3)
[2017-08-30] MEDS: hydrALAZINE 20 MG/ML VIAL SLOW IVP PRN (23:53)
[2017-08-31] MEDS ORDERED: Morphine 4 MG/ML VIAL SLOW IVP SCH (01:00)
[2017-08-31] MEDS: hydrALAZINE 20 MG/ML VIAL SLOW IVP PRN (04:00)
[2017-08-31] MEDS: Nitroglycerin 2% Ointment 1 INCH/1 GM Packet TOP SCH ×3 (04:00→19:48)
[2017-08-31] MEDS: Ondansetron HCl/PF 4 MG/2 ML Vial IVP SCH ×4 (04:08→16:51)
[2017-08-31] MEDS: Levothyroxine Sodium 100 MCG TAB PO SCH (05:47)
[2017-08-31 06:15] LABS: #Basophils 0.1 thou/uL (0.0-0.2); #Lymphocytes 0.9 thou/uL (1.20-3.40); #Monocytes 0.6 thou/uL (0.11-0.59); #Neutrophils 7.4 thou/uL (1.40-6.50); %Basophils 1.4 % (0.0-1.0); %Eosinophils 0.1 % (0.0-10.0); %Lymphocytes 9.9 % (21.0-51.0); %Monocytes 6.3 % (0.0-10.0); %Neutrophils 82.3 % (42.0-75.0); Hemoglobin 12.9 g/dL (12.0-16.0); Mean Corpuscular HGB CONC 32.3 g/dL (32.0-36.0); Mean Corpuscular Hemoglobin 28.9 pg (27.0-31.0); Mean Corpuscular Volume 89.4 fl (81.0-99.0); Mean Platelet Volume 8.9 fL (7.4-10.4); Platelet Count 214 thou/uL (130-400); RBC Distribution Width 12.1 % (11.5-14.5); Red Blood Cell (RBC) Count 4.46 mill/uL (4.20-5.40)
[2017-08-31] MEDS ORDERED: Labetalol HCl 100 MG/20 ML VIAL SLOW IVP SCH (06:15)
[2017-08-31 06:32] LABS: Lactic Acid 1.4 mmol/L (0.5-2.2)
[2017-08-31 06:38] LABS: Albumin 3.8 g/dL (3.4-4.8); Anion Gap 15 mmol/L (10-20); BUN (Urea Nitrogen) 14 mg/dL (9.8-20.1); BUN/Creatinine Ratio 16.67; Calc. Creatinine Clearance 43 mL/min (70-130); Calcium 9.4 mg/dL (7.8-10.44); Carbon Dioxide 28 mmol/L (23-31); Chloride 99 mmol/L (98-107); Estimated GFR-MDRD 79; Glucose 206 mg/dL (83-110); Magnesium 1.9 mg/dL (1.6-2.6); Phosphorus 2.5 mg/dL (2.3-4.7); Potassium 3.7 mmol/L (3.5-5.1); Sodium 138 mmol/L (136-145)
[2017-08-31 06:42] LABS: Digoxin 0.16 ng/mL (0.8-2.0)
[2017-08-31 07:13] LABS: Folate (Folic Acid) 14.9 ng/mL (7.0-31.4)
[2017-08-31] MEDS: Sodium Chloride 0.9% 1,000 ML IV SCH ×2 (07:21→20:55)
[2017-08-31 07:55] LABS: Troponin I 0.134 ng/mL (< 0.028)
[2017-08-31 09:57] LABS: Troponin I 0.134 ng/mL (< 0.028)
[2017-08-31] MEDS: Aspirin 81 mg Enteric Coated Tablet PO SCH (10:05)
[2017-08-31] MEDS: Amlodipine 5 MG TAB PO SCH ×2 (10:05→22:34)
[2017-08-31] MEDS: Pantoprazole 40 MG VIAL IVP SCH ×2 (10:06→20:55)
[2017-08-31] MEDS: Digoxin 0.125 MG TAB PO SCH (10:08)
[2017-08-31] MEDS ORDERED: cefTRIAXone\\ROCEPHIN 1 GM in Sodium Chloride 0.9% 100 ML IVPB SCH (10:30)
[2017-08-31 11:17] VITALS: BMI 18.9
[2017-08-31] MEDS: cefTRIAXone\\ROCEPHIN 1 GM, Syringe 0.4 ML in Sterile Water 9.6 ML SLOW IVP SCH (12:03)
[2017-08-31] MEDS: LEVODOPA PO SCH ×2 (12:06→19:43)
[2017-08-31] MEDS: CARBIDOPA PO SCH ×2 (12:06→19:43)
[2017-08-31] MEDS: Carbidopa/Levodopa CR 50-200 mg Tablet PO SCH ×2 (16:51→20:55)
--- NOTE | 2017-08-31 19:02 | CON ---
DATE OF CONSULTATION: 08/31/2017 HISTORY OF PRESENT ILLNESS: The patient is an 82-year-old woman with a history of Parkinson disease who presents with abdominal discomfort and developed chest pain. The patient has a history of peripheral vascular disease. She has a history of diabetic gastroparesis. The patient presented with abdominal discomfort. She states for the 48 hours she had severe abdominal pain. She also reported yesterday in hospital having midsternal chest discomfort. The patient is drowsy from morphine and is unable to give a coherent history. She states her abdominal discomfort has improved. PAST MEDICAL HISTORY: 1. Diabetes mellitus. 2. Hypertension. 3. Parkinson disease. 4. Diabetic gastroparesis. 5. Breast carcinoma. 6. Schizoaffective disorder. 7. Peripheral vascular disease. PAST SURGICAL HISTORY: Bladder suspension, hysterectomy, mastectomy, cholecystectomy and tubal ligation. ALLERGIES: No known drug allergies. MEDICATIONS: See nursing list. SOCIAL HISTORY: Nonsmoker. FAMILY HISTORY: Positive family history of coronary artery disease. REVIEW OF SYSTEMS: Not obtainable. PHYSICAL EXAMINATION: GENERAL: This is an elderly woman who is sedated with a blood pressure of 177/ 84. NECK: Showed mild elevation jugular venous distention. LUNGS: Clear to auscultation. HEART: Regular rate and rhythm. Normal S1 and S2. No murmurs. ABDOMEN: Nondistended. EXTREMITIES: No edema. VASCULAR: Radial pulses are 2+. LABORATORY AND IMAGING RESULTS: Sodium 138, potassium 3.7, chloride 99, bicarbonate 28, BUN 14, creatinine 0.84 and troponin was 0.134. EKG revealed her to have normal sinus rhythm with no acute ST-T wave changes. IMPRESSION: 1. Chest pain. 2. Abdominal discomfort. 3. History of gastroparesis. 4. Diabetes mellitus. 5. History of peripheral vascular disease. 6. Parkinson disease. PLAN: This patient presented with a chest and abdominal discomfort. She is undergoing a GI evaluation. From a cardiac standpoint, her EKG showed no acute changes. Cardiac enzymes did not reveal evidence of myocardial infarction despite having markedly elevated blood pressure and chest pain. We would use IV low pressure to control her heart rate since she cannot take any p.o. medication. We will await GI evaluation. Further recommendations to follow. REYESD
[2017-08-31] MEDS: Metoprolol Tartrate 5 MG/5 ML VIAL IVP SCH (19:49)
--- NOTE | 2017-08-31 21:46 | PDOC.PN ---
- Subjective Encounter Start Date: 08/31/17 Encounter Start Time: 18:00 Patient seen and examined. N/V +. No overnight events - Objective MAR Reviewed: Yes Vital Signs & Weight: Vital Signs (12 hours) Temp Pulse Resp BP Pulse Ox 08/31/17 21:29 180/88 H 08/31/17 19:25 99.6 F 101 H 16 183/86 H 98 Result Diagrams: 08/31/17 05:56 08/31/17 05:56 Additional Labs: Laboratory Tests 08/31/17 08/31/17 05:56 05:56 Troponin I 0.134 H 25-OH Vitamin D Total 27.9 L EKG Reviewed by me: Yes (Tele SR) Phys Exam - Physical Examination Constitutional: NAD Respiratory: no wheezing, no rhonchi Cardiovascular: RRR, no rub Gastrointestinal: soft, positive bowel sounds mild epig tenderness Neurological: moves all 4 limbs Dx/Plan - Plan DVT proph w/SCDs IMPRESSION: 1. 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 2. Epigastric discomfort/chest discomfort with elevated troponins. 3. 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 4. Gastroesophageal reflux disease. 5. History of Clarissa fundoplication. 6. Dyslipidemia. 7. Hypertension, uncontrolled. 8. Parkinson's disease. 9. Hypokalemia. replaced 10. Chronic kidney disease stage 2. 11. Dehydration. 12. Physical deconditioning. 13. UTI. PLAN: * Cardio/GI consulted * Atbx for UTI * Change Zofran to PRN * Cont current meds as below * AM labs * Cont IVF * Started on IV Metoprolol for elevated BP * [employer]CHIT[employer] consult Review of Systems - Review of Systems Respiratory: negative: Cough, Dry, Shortness of Breath, Hemoptysis, SOB with Excertion, Pleuritic Pain, Sputum, Wheezing Cardiovascular: negative: palpitations, orthopnea, paroxysmal nocturnal dyspnea , edema, light headedness - Medications/Allergies Allergies/Adverse Reactions: Allergies Allergy/AdvReac Type Severity Reaction Status Date / Time No Known Allergies Allergy Verified 05/26/15 09:14 Medications: Current Medications Acetaminophen (Tylenol) 650 mg IA Q4H PRN PRN Reason: Headache/Fever or Pain Acetaminophen (Tylenol) 650 mg PO Q4H PRN PRN Reason: Headache/Fever or Pain Al Hydroxide/Mg Hydroxide (Maalox) 30 ml PO Q6H PRN PRN Reason: Heartburn or Indigestion Amlodipine Besylate (Norvasc) 5 mg PO BID REPLACED BY [facility] Last Admin: 08/31/17 10:05 Dose: 5 mg Aspirin (Ecotrin) 81 mg PO DAILY REPLACED BY [facility] Last Admin: 08/31/17 10:05 Dose: 81 mg Calcium Carbonate (Tums) 1,000 mg PO Q4H PRN PRN Reason: Heartburn or Indigestion Carbidopa/Levodopa (Sinemet Cr 50/200) 0.5 tab PO TID REPLACED BY [facility] Last Admin: 08/31/17 20:55 Dose: 0.5 tab Clonidine (Catapres) 0.1 mg PO Q4H PRN PRN Reason: Systolic BP > 180 Digoxin (Lanoxin) 0.125 mg PO DAILY REPLACED BY [facility] Last Admin: 08/31/17 10:08 Dose: 0.125 mg Enalaprilat (Vasotec) 0.625 mg SLOW IVP Q6HR PRN PRN Reason: SBP Greater Than 180 Last Admin: 08/30/17 21:33 Dose: 0.625 mg Hydralazine HCl (Apresoline) 10 mg SLOW IVP Q4H PRN PRN Reason: SBP Greater Than 180 Last Admin: 08/31/17 04:00 Dose: 10 mg Sodium Chloride (Normal Saline 0.9%) 1,000 mls @ 70 mls/hr IV .[id number] REPLACED BY [facility] Last Admin: 08/31/17 20:55 Dose: 1,000 mls Ceftriaxone Sodium 1 gm/ (Syringe 0.4 ml/ Sterile Water) 10 mls @ 120 mls/hr SLOW IVP 1100 REPLACED BY [facility] Last Admin: 08/31/17 12:03 Dose: 10 mls Levothyroxine Sodium (Synthroid) 100 mcg PO 0600 REPLACED BY [facility] Last Admin: 08/31/17 05:47 Dose: 100 mcg Metoprolol Tartrate (Lopressor) 5 mg IVP Q6HR REPLACED BY [facility] Last Admin: 08/31/17 19:49 Dose: 5 mg Nitroglycerin (Nitrostat) 0.4 mg PO Q5MIN PRN PRN Reason: Chest Pain Nitroglycerin (Nitro-Bid 2% Ointment) 0.5 inch TOP Q8H REPLACED BY [facility] Last Admin: 08/31/17 19:48 Dose: 0.5 inch Ondansetron HCl (Zofran Odt) 4 mg PO Q6H PRN PRN Reason: Nausea/Vomiting Ondansetron HCl (Zofran Odt) 8 mg SL Q6HR PRN PRN Reason: Nausea/Vomiting Pantoprazole Sodium (Protonix) 40 mg IVP Q12HR [facility] Last Admin: 08/31/17 20:55 Dose: 40 mg Promethazine HCl (Phenergan) 12.5 mg SLOW IVP Q6H PRN PRN Reason: Nausea Last Admin: 08/30/17 21:24 Dose: 12.5 mg Sodium Chloride (Flush - Normal Saline) 10 ml IVF PRN PRN PRN Reason: Saline Flush Last Admin: 08/30/17 23:53 Dose: 10 ml
[2017-09-01] MEDS: Metoprolol Tartrate 5 MG/5 ML VIAL IVP SCH ×3 (02:30→20:02)
[2017-09-01] MEDS: Nitroglycerin 2% Ointment 1 INCH/1 GM Packet TOP SCH ×3 (05:42→20:03)
[2017-09-01] MEDS: Levothyroxine Sodium 100 MCG TAB PO SCH (05:44)
[2017-09-01] MEDS: Metoclopramide HCl 10 MG/2 ML VIAL IVP SCH ×2 (05:44→15:25)
--- NOTE | 2017-09-01 06:29 | CON ---
DATE OF CONSULTATION: 05/31/2018 HISTORY OF PRESENT ILLNESS: The patient is an 82-year-old -[place] female, who I saw back in June 19, 2017 with persistent nausea and vomiting. On 06/20/2017, the patient underwent an EGD b janet Cuelol, which showed previous fundoplication. The scope seemed to be very easily passed beyond this area. No other abnormalities were noted. There was a nodule, that was biopsied. Histopatholo gy of this nodule showed focal , but no other abnormalities noted. The patient does have associ ated chronic constipation for which she takes Dulcolax, which she takes 3 at a time to control her co nstipation. There is a history of a diabetic gastroparesis; however, reviewing Radiology records, th ere does not seem to be a gastric emptying scan. Nuclear emptying scan from 05/2002 showed unremarka ble gastric emptying scan with a T one-half of 72 minutes. Previous one a year before showed a krissy l gastric emptying scan. PAST MEDICAL HISTORY: Includes Parkinson's disease, diabetes mellitus, hyperlipidemia, hypertension, breast cancer, peripheral neuropathy, uterine prolapse, and peripheral vascular disease. PAST SURGICAL HISTORY: Includes bladder suspension, hysterectomy, mastectomy, fundoplication, cholec ystectomy, and tubal ligation. ALLERGIES: No known allergies. MEDICATIONS: At the present time include tramadol 2 p.o. q.6 hours p.r.n., Reglan 10 mg p.o. t.i.d. p.r.n., lisinopril 20 mg p.o. q.a.m., Lanoxin 1 p.o. daily, vitamin D 1000 units p.o. daily, carbidop a levodopa 0.5 mg p.o. b.i.d., atorvastatin 40 mg p.o. daily, Arimidex 1 mg p.o. daily, vitamin E 400 units p.o. daily, Seroquel 12.5 mg p.o. b.i.d., omeprazole 2 p.o. daily, levothyroxine 100 mcg p.o. daily, , aspirin 81 mg p.o. daily, amlodipine 10 mg p.o. daily, insulin 15 units subcutaneously q.p.m. SOCIAL HISTORY: She does not smoke or drink. FAMILY HISTORY: Negative for GI or liver disease. REVIEW OF SYSTEMS: Ten systems were reviewed and were negative except for above. PHYSICAL EXAMINATION: GENERAL: Shows a thin -[place] female, in no acute distress. VITAL SIGNS: Temperature is 99.6, pulse 101, respiratory rate 16, blood pressure 180/88. HEENT: Unremarkable. NECK: Supple. CHEST: Clear. CARDIOVASCULAR: Regular rate and rhythm. ABDOMEN: Soft, nontender without organomegaly or masses. Bowel sounds are present and normoactive. RECTAL: Deferred. EXTREMITIES: Normal. NEUROLOGIC: Nonfocal. LABORATORY DATA: Shows a normal white blood cell count of 9.0, hemoglobin 12.9, hematocrit 39.9. Ch emistries are normal except for glucose of 206. LFTs are normal. Urine ketones trace, moderate bloo d, 21-50 wbc's. ASSESSMENT: 1. Intractable nausea and vomiting -- recent esophagogastroduodenoscopy did not seem to indicate the obstruction secondary to her previous Clarissa fundoplication with easy passage of the endoscope. No objective evidence for diabetic gastroparesis with negative gastric emptying scan in years past. 2. Urinary tract infection. 3. Parkinson's disease. 4. Chronic constipation. RECOMMENDATIONS: 1. Short course of IV Reglan. 2. Upper GI series in the a.m. 3. May consider gastric emptying scan.
[2017-09-01] MEDS: Aspirin 81 mg Enteric Coated Tablet PO SCH (08:54)
[2017-09-01] MEDS: Digoxin 0.125 MG TAB PO SCH (08:55)
[2017-09-01] MEDS: Amlodipine 5 MG TAB PO SCH ×2 (08:55→20:43)
[2017-09-01] MEDS: Pantoprazole 40 MG VIAL IVP SCH ×2 (08:55→20:43)
[2017-09-01] MEDS: Carbidopa/Levodopa CR 50-200 mg Tablet PO SCH ×3 (09:00→20:43)
[2017-09-01] MEDS: Sodium Chloride 0.9% 1,000 ML IV SCH (12:21)
[2017-09-01] MEDS: cefTRIAXone\\ROCEPHIN 1 GM, Syringe 0.4 ML in Sterile Water 9.6 ML SLOW IVP SCH (12:21)
--- NOTE | 2017-09-01 12:55 | RAD ---
SINGLE CONTRAST UPPER GI: CLINICAL HISTORY: Persistent nausea and vomiting in an 82-year-old female. FINDINGS: There is marked tortuosity of the esophagus. There is a hiatal hernia. Contrast does traverse the t ortuous esophagus into the stomach. Evaluation is limited as the patient has difficulty tolerating p ositioning for the exam and demonstrates persistent coughing episodes. IMPRESSION: Marked tortuosity of the esophagus and evidence of hiatal hernia. There is limited assessment due to patient inability to tolerate positioning. POS: BRICE
--- NOTE | 2017-09-01 16:16 | PDOC.PN ---
- Subjective Encounter Start Date: 09/01/17 Encounter Start Time: 15:00 Patient seen and examined. Nausea slowly improving. Dry heaving +. No overnight events - Objective MAR Reviewed: Yes Vital Signs & Weight: Vital Signs (12 hours) Temp Pulse Resp BP BP Pulse Ox 09/01/17 15:33 99.2 F 91 15 163/76 H 100 09/01/17 11:35 98.6 F 100 18 153/78 H 100 09/01/17 08:55 96 171/74 H 09/01/17 08:00 98.6 F 100 18 09/01/17 07:28 99.4 F 96 18 171/74 H 99 I&O: 08/31/17 09/01/17 09/02/17 06:59 06:59 06:59 Intake Total 0 200 Output Total 400 Balance 0 -200 Result Diagrams: 08/31/17 05:56 08/31/17 05:56 Additional Labs: Accuchecks 09/01/17 08/31/17 05:21 21:16 POC Glucose 153 H 187 H EKG Reviewed by me: Yes (Tele SR) Phys Exam - Physical Examination Constitutional: NAD Respiratory: no wheezing, no rhonchi Cardiovascular: RRR, no rub Gastrointestinal: soft, positive bowel sounds mild epid tenderness Musculoskeletal: no edema Neurological: non-focal Dx/Plan - Plan DVT proph w/SCDs IMPRESSION: 1. 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 2. Epigastric discomfort/chest discomfort with elevated troponins. 3. 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 4. Gastroesophageal reflux disease. 5. History of Clarissa fundoplication. 6. Dyslipidemia. 7. Hypertension, uncontrolled. 8. Parkinson's disease. 9. Hypokalemia. replaced 10. Chronic kidney disease stage 2. 11. Dehydration. 12. Physical deconditioning. 13. UTI - Ecoli - sensitivities pending 14. Swallow dysfunction PLAN: * Started on modified diet per DIRECTOR OF MARKETING * s/p Barium upper GI * Cardio/GI consulted * Cont Atbx for UTI * On Reglan per GI * Cont current meds as below * AM labs * Cont IVF * on IV Metoprolol for elevated BP * Lisinopril added today * Hold Heparin/Lovenox due to ?hematemesis Review of Systems - Review of Systems Respiratory: negative: Cough, Dry, Shortness of Breath, Hemoptysis, SOB with Excertion, Pleuritic Pain, Sputum, Wheezing Cardiovascular: negative: chest pain, palpitations, orthopnea, paroxysmal nocturnal dyspnea, edema, light headedness - Medications/Allergies Allergies/Adverse Reactions: Allergies Allergy/AdvReac Type Severity Reaction Status Date / Time No Known Allergies Allergy Verified 05/26/15 09:14 Medications: Current Medications Acetaminophen (Tylenol) 650 mg MI Q4H PRN PRN Reason: Headache/Fever or Pain Acetaminophen (Tylenol) 650 mg PO Q4H PRN PRN Reason: Headache/Fever or Pain Al Hydroxide/Mg Hydroxide (Maalox) 30 ml PO Q6H PRN PRN Reason: Heartburn or Indigestion Amlodipine Besylate (Norvasc) 5 mg PO BID [facility] Last Admin: 09/01/17 08:55 Dose: 5 mg Aspirin (Ecotrin) 81 mg PO DAILY [facility] Last Admin: 09/01/17 08:54 Dose: 81 mg Calcium Carbonate (Tums) 1,000 mg PO Q4H PRN PRN Reason: Heartburn or Indigestion Carbidopa/Levodopa (Sinemet Cr 50/200) 0.5 tab PO TID [facility] Last Admin: 09/01/17 15:30 Dose: 0.5 tab Clonidine (Catapres) 0.1 mg PO Q4H PRN PRN Reason: Systolic BP > 180 Digoxin (Lanoxin) 0.125 mg PO DAILY [facility] Last Admin: 09/01/17 08:55 Dose: 0.125 mg Enalaprilat (Vasotec) 0.625 mg SLOW IVP Q6HR PRN PRN Reason: SBP Greater Than 180 Last Admin: 08/30/17 21:33 Dose: 0.625 mg Hydralazine HCl (Apresoline) 10 mg SLOW IVP Q4H PRN PRN Reason: SBP Greater Than 180 Last Admin: 08/31/17 04:00 Dose: 10 mg Sodium Chloride (Normal Saline 0.9%) 1,000 mls @ 70 mls/hr IV .[id number] [facility] Last Admin: 09/01/17 12:21 Dose: 1,000 mls Ceftriaxone Sodium 1 gm/ (Syringe 0.4 ml/ Sterile Water) 10 mls @ 120 mls/hr SLOW IVP 1100 [facility] Last Admin: 09/01/17 12:21 Dose: 10 mls Levothyroxine Sodium (Synthroid) 100 mcg PO 0600 [facility] Last Admin: 09/01/17 05:44 Dose: 100 mcg Lisinopril (Zestril) 20 mg PO DAILY [facility] Metoclopramide HCl (Reglan) 10 mg IVP Q8HR [facility] Last Admin: 09/01/17 15:25 Dose: 10 mg Metoprolol Tartrate (Lopressor) 5 mg IVP Q6HR [facility] Last Admin: 09/01/17 12:21 Dose: 5 mg Nitroglycerin (Nitrostat) 0.4 mg PO Q5MIN PRN PRN Reason: Chest Pain Nitroglycerin (Nitro-Bid 2% Ointment) 0.5 inch TOP Q8H [facility] Last Admin: 09/01/17 12:18 Dose: 0.5 inch Ondansetron HCl (Zofran Odt) 4 mg PO Q6H PRN PRN Reason: Nausea/Vomiting Ondansetron HCl (Zofran Odt) 8 mg SL Q6HR PRN PRN Reason: Nausea/Vomiting Pantoprazole Sodium (Protonix) 40 mg IVP Q12HR [facility] Last Admin: 09/01/17 08:55 Dose: 40 mg Sodium Chloride (Flush - Normal Saline) 10 ml IVF PRN PRN PRN Reason: Saline Flush Last Admin: 08/30/17 23:53 Dose: 10 ml
--- NOTE | 2017-09-01 18:07 | PRG ---
DATE OF SERVICE: 09/01/2017 SUBJECTIVE: The patient is tolerating some liquids and some of her pureed diet. She is seen by [facility] and felt that the patient may have increased aspiration risk. Speech Pathology is also giving patient aspiration precautions. OBJECTIVE: VITAL SIGNS: Temperature 99.2, pulse 91, respiratory rate 15, blood pressure 163/76. CHEST: Clear. CARDIOVASCULAR: Regular rate and rhythm. ABDOMEN: Soft and nontender without organomegaly or masses. LABORATORY DATA AND IMAGING DATA: Shows glucose 153. Upper GI series with air contrast shows what i s felt to be marked tortuosity of the esophagus and evidence of a hiatal hernia. ASSESSMENT: 1. Intractable nausea and vomiting - this may actually be more of oropharyngeal dysphagia type of si tuation. 2. Urinary tract infection. 3. Parkinson's disease. 4. Chronic constipation. RECOMMENDATIONS: 1. Discontinue Reglan in anticipation of a gastric emptying scan on Sunday. 2. Continue to work with speech pathology to help with swallowing dysfunction.
[2017-09-01] MEDS ORDERED: Lisinopril 20 MG TAB PO SCH (20:15)
[2017-09-01] MEDS: Acetaminophen 325 MG TAB PO PRN (20:43)
[2017-09-02] MEDS: Metoprolol Tartrate 5 MG/5 ML VIAL IVP SCH ×4 (01:41→19:29)
[2017-09-02] MEDS: Nitroglycerin 2% Ointment 1 INCH/1 GM Packet TOP SCH ×3 (02:10→19:30)
[2017-09-02] MEDS: Sodium Chloride 0.9% 1,000 ML IV SCH ×2 (03:02→19:35)
[2017-09-02] MEDS: Levothyroxine Sodium 100 MCG TAB PO SCH (05:57)
[2017-09-02] MEDS ORDERED: Lisinopril 20 MG TAB PO SCH (09:00)
[2017-09-02] MEDS: Pantoprazole 40 MG VIAL IVP SCH ×2 (09:05→19:37)
[2017-09-02] MEDS: Amlodipine 5 MG TAB PO SCH ×2 (09:06→19:36)
[2017-09-02] MEDS: Polyethylene Glycol 3350 17 GM Packet PO SCH (09:06)
[2017-09-02] MEDS: Digoxin 0.125 MG TAB PO SCH (09:06)
[2017-09-02] MEDS: Aspirin 81 mg Enteric Coated Tablet PO SCH (09:06)
[2017-09-02] MEDS: Carbidopa/Levodopa CR 50-200 mg Tablet PO SCH ×3 (09:41→19:36)
--- NOTE | 2017-09-02 10:39 | PDOC.PN ---
- Subjective Encounter Start Date: 09/02/17 Encounter Start Time: 10:38 Patient seen at bedside. As per community health nurse staff, N/V has improved. Had low grade fever last night - Objective MAR Reviewed: Yes Vital Signs & Weight: Vital Signs (12 hours) Temp Pulse Resp BP BP Pulse Ox 09/02/17 09:41 171/74 H 09/02/17 09:06 79 09/02/17 07:05 99.1 F 79 16 179/84 H 98 09/02/17 04:48 171/74 H 09/02/17 02:59 99.2 F 83 16 158/74 H 99 09/01/17 23:10 98.8 F 78 18 124/64 100 I&O: 09/01/17 09/02/17 09/03/17 06:59 06:59 06:59 Intake Total 0 1305 Output Total 400 Balance 0 905 Result Diagrams: 08/31/17 05:56 08/31/17 05:56 Additional Labs: Accuchecks 09/01/17 09/01/17 20:46 16:58 POC Glucose 191 H 192 H Phys Exam - Physical Examination Constitutional: NAD HEENT: moist MMs Neck: no JVD Respiratory: no rales Cardiovascular: RRR Gastrointestinal: positive bowel sounds Musculoskeletal: pulses present Resting tremor Psychiatric: A&O x 3 Dx/Plan (1) Intractable nausea and vomiting Code(s): R11.2 - NAUSEA WITH VOMITING, UNSPECIFIED Status: Resolved (2) UTI (urinary tract infection) Status: Acute (3) Dyslipidemia Code(s): E78.5 - HYPERLIPIDEMIA, UNSPECIFIED Status: Chronic (4) Hiatal hernia Code(s): K44.9 - DIAPHRAGMATIC HERNIA WITHOUT OBSTRUCTION OR GANGRENE Status: Chronic (5) Parkinson disease Code(s): G20 - PARKINSON'S DISEASE Status: Chronic (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 * Continue with Rocephin * Monitor BP. If continues to stay elevated may add clonidine * Barium swallow in AM per GI
[2017-09-02] MEDS: cefTRIAXone\\ROCEPHIN 1 GM, Syringe 0.4 ML in Sterile Water 9.6 ML SLOW IVP SCH (11:44)
--- NOTE | 2017-09-02 12:28 | PRG ---
DATE OF SERVICE: 09/02/2017 SUBJECTIVE: The patient is feeling well. She denies any abdominal pain. According to nursing norberto huerta, she is increasing her p.o. intake. She has not had a bowel movement. OBJECTIVE: VITAL SIGNS: Temperature is 99.1, pulse 79, respiratory rate 16 and blood pressure 171/74. CHEST: Clear. CARDIOVASCULAR: Regular rate and rhythm. ABDOMEN: Soft and nontender. LABORATORY DATA: No new laboratories. ASSESSMENT: 1. Intractable nausea and vomiting - this actually may be more of an oropharyngeal dysphagia. 2. Urinary tract infection. 3. Parkinson disease. 4. Chronic constipation. RECOMMENDATIONS: 1. A modified barium swallow tomorrow. 2. Gastric emptying scan tomorrow. 3. Continue MiraLax.
[2017-09-02] MEDS: Acetaminophen 325 MG TAB PO PRN ×2 (14:48→23:08)
[2017-09-02] MEDS ORDERED: Dextrose 50% Abboject 50 ML SYRINGE SLOW IVP PRN (18:51)
[2017-09-02] MEDS ORDERED: Dextrose 5% in Water 1,000 ML IV PRN (18:51)
[2017-09-02] MEDS ORDERED: Fleet Enema 133 ML BOT PR SCH (19:00)
[2017-09-02] MEDS: Lisinopril 20 MG TAB PO SCH (19:36)
[2017-09-03] MEDS: Metoprolol Tartrate 5 MG/5 ML VIAL IVP SCH ×4 (01:24→17:36)
[2017-09-03] MEDS: Nitroglycerin 2% Ointment 1 INCH/1 GM Packet TOP SCH ×3 (04:01→17:36)
[2017-09-03] MEDS: Levothyroxine Sodium 100 MCG TAB PO SCH (05:21)
[2017-09-03] MEDS: Pantoprazole 40 MG VIAL IVP SCH ×2 (09:37→20:47)
[2017-09-03] MEDS: Polyethylene Glycol 3350 17 GM Packet PO SCH (09:38)
[2017-09-03] MEDS: Acetaminophen 325 MG TAB PO PRN ×2 (09:38→18:10)
[2017-09-03] MEDS: Sodium Chloride 0.9% 1,000 ML IV SCH (09:38)
[2017-09-03] MEDS: Amlodipine 5 MG TAB PO SCH ×2 (09:39→20:44)
[2017-09-03] MEDS: Aspirin 81 mg Enteric Coated Tablet PO SCH (09:39)
[2017-09-03] MEDS: Lisinopril 20 MG TAB PO SCH ×2 (09:39→20:46)
[2017-09-03] MEDS: Digoxin 0.125 MG TAB PO SCH (09:39)
[2017-09-03 11:56] LABS: Albumin 2.6 g/dL (3.4-4.8); Anion Gap 14 mmol/L (10-20); BUN (Urea Nitrogen) 22 mg/dL (9.8-20.1); BUN/Creatinine Ratio 26.19; Calc. Creatinine Clearance 43 mL/min (70-130); Calcium 8.3 mg/dL (7.8-10.44); Carbon Dioxide 23 mmol/L (23-31); Chloride 105 mmol/L (98-107); Estimated GFR-MDRD 79; Glucose 245 mg/dL (83-110); Magnesium 2.1 mg/dL (1.6-2.6); Phosphorus 2.9 mg/dL (2.3-4.7); Sodium 138 mmol/L (136-145)
[2017-09-03] MEDS: cefTRIAXone\\ROCEPHIN 1 GM, Syringe 0.4 ML in Sterile Water 9.6 ML SLOW IVP SCH (12:06)
[2017-09-03] MEDS: Carbidopa/Levodopa CR 50-200 mg Tablet PO SCH ×3 (12:07→20:45)
[2017-09-03] MEDS: Insulin Regular 300 UNITS/3 ML VIAL SC PRN (12:07)
--- NOTE | 2017-09-03 15:58 | RAD ---
MODIFIED BARIUM SWALLOW 09/03/17 HISTORY: Dysphagia, oropharyngeal phase. Feeding difficulties. FLUOROSCOPY: Total fluoroscopy time is 1.2 minutes with total dose of 0.382 Gy*cm2. FINDINGS: This examination was performed in conjunction with speech pathology. Thin and thick liquid barium as well as barium soaked cookie were administered during the exam. Patient demonstrates delayed formatio n of the bolus into the posterior pharynx with a few episodes of mild premature swelling prior to ini tiation of swallowing mechanism. There is no aspiration or penetration noted during the exam. There is one episode of minimal pooling within the vallecula which cleared with additional swallowing. IMPRESSION: No aspiration or penetration noted during the exam. POS: THERESE
--- NOTE | 2017-09-03 17:03 | PQF ---
CLINICAL DOCUMENTATION IMPROVEMENT CLARIFICATION FORM: ICD-10 Updated PLEASE DO AN ADDENDUM TO THE PROGRESS NOTE WITH ANY DOCUMENTATION UPDATES OR ADDITIONS AND CARRY THROUGH TO DC SUMMARY. THANK YOU. Date: 09/03/17 ATTN: Dr. Gomez Please exercise your independent, professional judgment in responding to the clarification form. Clinical indicators are provided on the bottom of this form for your review Please check appropriate box(s): [ ] Protein Calorie Malnutrition: [ ] Mild [ ] Moderate [ ] Severe [ ] Other Malnutrition (please specify) __ [ ] Underweight without malnutrition [ ] Cachexia [ ] Other diagnosis [ ] Unable to determine In addition, please specify: Present on Admission (POA): [ ] Yes [ ] No [ ] Unable to determine CLINICAL INDICATORS - SIGNS / SYMPTOMS / LABS COMPUTER AIDED DESIGN OPERATOR ASSESSMENT: BMI 18.9 NUTRITION DX: MALNUTRITION R/T INABILITY TO TOLERATE PO INTAKE 20.5% WT LOSS OVER THE PAST 11 WEEKS , TEMPORAL & CLAVICULAR MUSCLE WASTING, BUCCAL FAT WASTING RISKS: H&P: INTRACTABLE NAUSEA & VOMITING. UNABLE TO KEEP ANY FOOD DOWN. HX OF DIABETIC GASTROPARESIS; RECENT DIAGNOSIS OF PREBYESOPHAGUS. PARKINSON DISEASE. PHYSICAL DECONDITIONING. TREATMENT: DIETARY CONSULT PER [facility] ORDER 08/31/17 FOR SUPPLEMENT: GLUCSISI MOTLEY Thank you, Carrie (This form is maintained as a part of the permanent medical record) 2014 [employer]. All Rights Reserved Carrie Lorenzo RN, BSN [email or web address] Office: [phone] [facility]
[2017-09-03] MEDS: traMADol HCl 50 MG TAB PO PRN (21:03)
--- NOTE | 2017-09-03 21:26 | PDOC.PN ---
- Subjective Encounter Start Date: 09/03/17 Encounter Start Time: 19:50 Patient seen and examined. Nausea improving. No overnight events - Objective MAR Reviewed: Yes Vital Signs & Weight: Vital Signs (12 hours) Temp Pulse Resp BP BP Pulse Ox 09/03/17 20:46 120/57 L 09/03/17 20:44 63 120/57 L 09/03/17 19:55 99.3 F 63 16 120/57 L 96 09/03/17 17:34 111/74 09/03/17 16:00 98.6 F 58 L 16 137/61 98 09/03/17 10:38 98.6 F 75 16 172/76 H 95 09/03/17 09:39 70 Weight Admit Weight 115 lb 12.8 oz Weight 113 lb 11.2 oz I&O: 09/02/17 09/03/17 09/04/17 06:59 06:59 06:59 Intake Total 6387 567 7288 Output Total 400 200 Balance 994 967 4608 Result Diagrams: 08/31/17 05:56 09/03/17 10:46 Additional Labs: Accuchecks 09/03/17 09/03/17 09/03/17 20:53 17:35 10:46 POC Glucose 206 H 85 217 H 09/03/17 05:22 POC Glucose 147 H EKG Reviewed by me: Yes (Tele SR) Phys Exam - Physical Examination Constitutional: NAD Respiratory: no wheezing, no rhonchi Cardiovascular: RRR, no rub Gastrointestinal: soft, positive bowel sounds Musculoskeletal: no edema Neurological: moves all 4 limbs Dx/Plan - Plan continue antibiotics, DVT proph w/SCDs IMPRESSION: 1. 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 2. Epigastric discomfort/chest discomfort with elevated troponins. 3. 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 4. Gastroesophageal reflux disease. 5. History of Clarissa fundoplication. 6. Dyslipidemia. 7. Hypertension, uncontrolled. 8. Parkinson's disease. 9. Hypokalemia. replaced 10. Chronic kidney disease stage 2. 11. Dehydration. 12. Physical deconditioning. 13. UTI - Ecoli 14. Swallow dysfunction 15. Moderate protein calorie malnutrition. PLAN: * on modified diet per [employer] * Cardio/GI following * Cont Atbx for UTI * Cont current meds as below Review of Systems - Review of Systems Respiratory: negative: Cough, Dry, Shortness of Breath, Hemoptysis, SOB with Excertion, Pleuritic Pain, Sputum, Wheezing Cardiovascular: negative: chest pain, palpitations, orthopnea, paroxysmal nocturnal dyspnea, edema, light headedness - Medications/Allergies Allergies/Adverse Reactions: Allergies Allergy/AdvReac Type Severity Reaction Status Date / Time No Known Allergies Allergy Verified 05/26/15 09:14 Medications: Current Medications Acetaminophen (Tylenol) 650 mg AL Q4H PRN PRN Reason: Headache/Fever or Pain Acetaminophen (Tylenol) 650 mg PO Q4H PRN PRN Reason: Headache/Fever or Pain Last Admin: 09/03/17 18:10 Dose: 650 mg Al Hydroxide/Mg Hydroxide (Maalox) 30 ml PO Q6H PRN PRN Reason: Heartburn or Indigestion Amlodipine Besylate (Norvasc) 5 mg PO BID [facility] Last Admin: 09/03/17 20:44 Dose: Not Given Aspirin (Ecotrin) 81 mg PO DAILY [facility] Last Admin: 09/03/17 09:39 Dose: 81 mg Calcium Carbonate (Tums) 1,000 mg PO Q4H PRN PRN Reason: Heartburn or Indigestion Carbidopa/Levodopa (Sinemet Cr 50/200) 0.5 tab PO TID [facility] Last Admin: 09/03/17 20:45 Dose: 0.5 tab Clonidine (Catapres) 0.1 mg PO Q4H PRN PRN Reason: Systolic BP > 180 Dextrose/Water (Dextrose 50%) 25 gm SLOW IVP PRN PRN PRN Reason: Hypoglycemia Digoxin (Lanoxin) 0.125 mg PO DAILY [facility] Last Admin: 09/03/17 09:39 Dose: 0.125 mg Enalaprilat (Vasotec) 0.625 mg SLOW IVP Q6HR PRN PRN Reason: SBP Greater Than 180 Last Admin: 08/30/17 21:33 Dose: 0.625 mg Glucagon (Glucagon) 1 mg IM PRN PRN PRN Reason: Hypoglycemia Hydralazine HCl (Apresoline) 10 mg SLOW IVP Q4H PRN PRN Reason: SBP Greater Than 180 Last Admin: 08/31/17 04:00 Dose: 10 mg Sodium Chloride (Normal Saline 0.9%) 1,000 mls @ 70 mls/hr IV .[id number] [facility] Last Admin: 09/03/17 09:38 Dose: 1,000 mls Ceftriaxone Sodium 1 gm/ (Syringe 0.4 ml/ Sterile Water) 10 mls @ 120 mls/hr SLOW IVP 1100 [facility] Last Admin: 09/03/17 12:06 Dose: 10 mls Dextrose/Water (D5w) 1,000 mls @ 0 mls/hr IV .Q0M PRN; As Directed PRN Reason: Hypoglycemia Insulin Human Regular (Humulin R) 0 units SC .MILD SLIDING SCALE PRN PRN Reason: Mild Correctional Scale Last Admin: 09/03/17 12:07 Dose: 3 units Levothyroxine Sodium (Synthroid) 100 mcg PO 0600 [facility] Last Admin: 09/03/17 05:21 Dose: 100 mcg Lisinopril (Zestril) 20 mg PO BID [facility] Last Admin: 09/03/17 20:46 Dose: 20 mg Metoprolol Tartrate (Lopressor) 5 mg IVP Q6HR [facility] Last Admin: 09/03/17 17:36 Dose: Not Given Nitroglycerin (Nitrostat) 0.4 mg PO Q5MIN PRN PRN Reason: Chest Pain Nitroglycerin (Nitro-Bid 2% Ointment) 0.5 inch TOP Q8H [facility] Last Admin: 09/03/17 17:36 Dose: Not Given Ondansetron HCl (Zofran Odt) 4 mg PO Q6H PRN PRN Reason: Nausea/Vomiting Ondansetron HCl (Zofran Odt) 8 mg SL Q6HR PRN PRN Reason: Nausea/Vomiting Pantoprazole Sodium (Protonix) 40 mg IVP Q12HR [facility] Last Admin: 09/03/17 20:47 Dose: 40 mg Polyethylene Glycol (Miralax) 17 gm PO DAILY [facility] Last Admin: 09/03/17 09:38 Dose: 17 gm Sodium Chloride (Flush - Normal Saline) 10 ml IVF PRN PRN PRN Reason: Saline Flush Last Admin: 08/30/17 23:53 Dose: 10 ml Tramadol HCl (Ultram) 50 mg PO Q4H PRN PRN Reason: Moderate Pain (4-6) Last Admin: 09/03/17 21:03 Dose: 50 mg
[2017-09-04] MEDS: Metoprolol Tartrate 5 MG/5 ML VIAL IVP SCH ×5 (00:24→23:21)
[2017-09-04] MEDS: Sodium Chloride 0.9% 1,000 ML IV SCH ×2 (01:54→21:17)
[2017-09-04] MEDS: traMADol HCl 50 MG TAB PO PRN ×3 (01:54→17:19)
[2017-09-04] MEDS: Nitroglycerin 2% Ointment 1 INCH/1 GM Packet TOP SCH ×3 (02:54→21:08)
[2017-09-04] MEDS: Levothyroxine Sodium 100 MCG TAB PO SCH (06:04)
[2017-09-04] MEDS: Carbidopa/Levodopa CR 50-200 mg Tablet PO SCH ×3 (14:23→21:08)
[2017-09-04] MEDS: Aspirin 81 mg Enteric Coated Tablet PO SCH (14:23)
[2017-09-04] MEDS: Amlodipine 5 MG TAB PO SCH ×2 (14:23→21:09)
[2017-09-04] MEDS: Digoxin 0.125 MG TAB PO SCH (14:24)
[2017-09-04] MEDS: Lisinopril 20 MG TAB PO SCH ×2 (14:24→21:08)
[2017-09-04] MEDS: Polyethylene Glycol 3350 17 GM Packet PO SCH (14:25)
[2017-09-04] MEDS: Pantoprazole 40 MG VIAL IVP SCH ×2 (14:25→21:05)
[2017-09-04] MEDS: cefTRIAXone\\ROCEPHIN 1 GM, Syringe 0.4 ML in Sterile Water 9.6 ML SLOW IVP SCH (14:35)
--- NOTE | 2017-09-04 15:25 | NM ---
RADIONUCLIDE GASTRIC EMPTYING SCAN: History: Persistent nausea and vomiting. Radiopharmaceutical: 2 mCi Technetium 99M Sulfur Colloid in scrambled eggs. FINDINGS: Anterior planar imaging shows good mixing of radiotracer within the stomach. There is rapid emptying of radiotracer from the stomach to the small bowel. Half-life emptying is calculated at 16 minutes. Emptying at time intervals is as follows: TIME EMPTYING 30 minutes 94% 60 minutes 94% 2 hours 95% 3 hours 97% 4 hours 98% IMPRESSION: 1. Good gastric emptying. No evidence of gastric retention. POS: [facility]
[2017-09-04] MEDS ORDERED: Magnesium Citrate 300 ML BOT PO SCH (17:15)
[2017-09-04] MEDS ORDERED: Fleet Enema 133 ML BOT PR SCH (17:15)
[2017-09-04] MEDS: Insulin Regular 300 UNITS/3 ML VIAL SC PRN (17:18)
--- NOTE | 2017-09-04 19:22 | PRG ---
DATE OF SERVICE: 09/04/2017 SUBJECTIVE: Ms. Elliott has some abdominal discomfort, but she has been tolerating an oral diet. She has been constipated. OBJECTIVE: VITAL SIGNS: Pulse 125, temperature 98.6 and blood pressure 149/83. GENERAL: She is in no acute distress. She is awake and alert. LUNGS: Clear to auscultation bilaterally. HEART: Tachycardic, S1, S2. ABDOMEN: Soft. Mild tenderness to palpation diffusely without guarding. Bowel sounds are present. EXTREMITIES: No lower extremity edema. IMPRESSION: Nausea and vomiting is currently improved. She had a gastric emptying scan that showed 94% emptying by 30 minutes. Her presbyesophagus with marked tortuosity and some dilation. This does not appear to be obvious achalasia as the contrast did appear to passed readily into the stomach. O n review of the financial aid manager films for the barium esophagogram there appears to be a significant amount of r etained stool across the transverse colon. The acute abdominal series was not as well penetrated and did not show this well on the initial presentation. It may be that the constipation is the primary source for her nausea and vomiting. An esophageal source is possible, but for that she just needs to remain on a pureed diet as advised by the speech pathologist. RECOMMENDATIONS: We will give mag citrate now as well as the Fleets Enema starting tomorrow and give MiraLax 3 times a day. She has been on MiraLax twice daily in the past with inadequate result and s till requires stimulant laxatives in addition to that. She has been on Dulcolax at home.
--- NOTE | 2017-09-04 22:00 | PDOC.PN ---
- Subjective Encounter Start Date: 09/04/17 Encounter Start Time: 17:30 Patient seen and examined. No new complaints. No overnight events. Nausea improving. Tolerating modified diet. - Objective MAR Reviewed: Yes Vital Signs & Weight: Vital Signs (12 hours) Temp Pulse Resp BP BP Pulse Ox 09/04/17 21:09 69 145/70 H 09/04/17 21:08 145/70 H 09/04/17 20:00 98.2 F 69 16 145/70 H 99 09/04/17 17:56 76 09/04/17 14:24 98.6 F 125 H 16 149/83 H 149/83 H 99 09/04/17 14:23 125 H 149/83 H Weight Admit Weight 115 lb 12.8 oz Weight 122 lb 6.4 oz I&O: 09/03/17 09/04/17 09/05/17 06:59 06:59 06:59 Intake Total 920 2304 300 Output Total 200 650 Balance 720 1654 300 Result Diagrams: 09/05/17 03:58 09/05/17 03:58 Additional Labs: Accuchecks 09/04/17 09/04/17 09/04/17 21:26 16:51 14:18 POC Glucose 127 H 279 H 170 H 09/04/17 06:11 POC Glucose 135 H EKG Reviewed by me: Yes (Tele SR) Phys Exam - Physical Examination Constitutional: NAD Respiratory: no wheezing, no rhonchi Cardiovascular: RRR, no rub Gastrointestinal: soft, non-tender, positive bowel sounds Musculoskeletal: no edema Dx/Plan - Plan DVT proph w/SCDs IMPRESSION: 1. 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 2. Epigastric discomfort/chest discomfort with elevated troponins. 3. 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 4. Gastroesophageal reflux disease. 5. History of Clarissa fundoplication. 6. Dyslipidemia. 7. Hypertension, uncontrolled. 8. Parkinson's disease. 9. Hypokalemia. replaced 10. Chronic kidney disease stage 2. 11. Dehydration. 12. Physical deconditioning. 13. UTI - Ecoli 14. Swallow dysfunction 15. Moderate protein calorie malnutrition. PLAN: * Cont Miralax per GI * Cont modified diet per [employer] * Cardio/GI following * Cont Atbx for UTI - will stop at discharge * Cont current meds as below Review of Systems - Review of Systems Respiratory: negative: Cough, Dry, Shortness of Breath, Hemoptysis, SOB with Excertion, Pleuritic Pain, Sputum, Wheezing Cardiovascular: negative: chest pain, palpitations, orthopnea, paroxysmal nocturnal dyspnea, edema, light headedness - Medications/Allergies Allergies/Adverse Reactions: Allergies Allergy/AdvReac Type Severity Reaction Status Date / Time No Known Allergies Allergy Verified 05/26/15 09:14 Medications: Current Medications Acetaminophen (Tylenol) 650 mg NC Q4H PRN PRN Reason: Headache/Fever or Pain Acetaminophen (Tylenol) 650 mg PO Q4H PRN PRN Reason: Headache/Fever or Pain Last Admin: 09/03/17 18:10 Dose: 650 mg Al Hydroxide/Mg Hydroxide (Maalox) 30 ml PO Q6H PRN PRN Reason: Heartburn or Indigestion Amlodipine Besylate (Norvasc) 5 mg PO BID [facility] Last Admin: 09/04/17 21:09 Dose: 5 mg Aspirin (Ecotrin) 81 mg PO DAILY [facility] Last Admin: 09/04/17 14:23 Dose: 81 mg Calcium Carbonate (Tums) 1,000 mg PO Q4H PRN PRN Reason: Heartburn or Indigestion Carbidopa/Levodopa (Sinemet Cr 50/200) 0.5 tab PO TID [facility] Last Admin: 09/04/17 21:08 Dose: 0.5 tab Clonidine (Catapres) 0.1 mg PO Q4H PRN PRN Reason: Systolic BP > 180 Dextrose/Water (Dextrose 50%) 25 gm SLOW IVP PRN PRN PRN Reason: Hypoglycemia Digoxin (Lanoxin) 0.125 mg PO DAILY [facility] Last Admin: 09/04/17 14:24 Dose: 0.125 mg Enalaprilat (Vasotec) 0.625 mg SLOW IVP Q6HR PRN PRN Reason: SBP Greater Than 180 Last Admin: 08/30/17 21:33 Dose: 0.625 mg Glucagon (Glucagon) 1 mg IM PRN PRN PRN Reason: Hypoglycemia Hydralazine HCl (Apresoline) 10 mg SLOW IVP Q4H PRN PRN Reason: SBP Greater Than 180 Last Admin: 08/31/17 04:00 Dose: 10 mg Sodium Chloride (Normal Saline 0.9%) 1,000 mls @ 70 mls/hr IV .[id number] [facility] Last Admin: 09/04/17 21:17 Dose: 1,000 mls Ceftriaxone Sodium 1 gm/ (Syringe 0.4 ml/ Sterile Water) 10 mls @ 120 mls/hr SLOW IVP 1100 [facility] Last Admin: 09/04/17 14:35 Dose: 10 mls Dextrose/Water (D5w) 1,000 mls @ 0 mls/hr IV .Q0M PRN; As Directed PRN Reason: Hypoglycemia Insulin Human Regular (Humulin R) 0 units SC .MILD SLIDING SCALE PRN PRN Reason: Mild Correctional Scale Last Admin: 09/04/17 17:18 Dose: 4 units Levothyroxine Sodium (Synthroid) 100 mcg PO 0600 [facility] Last Admin: 09/04/17 06:04 Dose: 100 mcg Lisinopril (Zestril) 20 mg PO BID [facility] Last Admin: 09/04/17 21:08 Dose: 20 mg Metoprolol Tartrate (Lopressor) 5 mg IVP Q6HR [facility] Last Admin: 09/04/17 17:44 Dose: Not Given Nitroglycerin (Nitrostat) 0.4 mg PO Q5MIN PRN PRN Reason: Chest Pain Nitroglycerin (Nitro-Bid 2% Ointment) 0.5 inch TOP Q8H [facility] Last Admin: 09/04/17 21:08 Dose: Not Given Ondansetron HCl (Zofran Odt) 4 mg PO Q6H PRN PRN Reason: Nausea/Vomiting Ondansetron HCl (Zofran Odt) 8 mg SL Q6HR PRN PRN Reason: Nausea/Vomiting Pantoprazole Sodium (Protonix) 40 mg IVP Q12HR [facility] Last Admin: 09/04/17 21:05 Dose: 40 mg Polyethylene Glycol (Miralax) 17 gm PO TID [facility] Sodium Chloride (Flush - Normal Saline) 10 ml IVF PRN PRN PRN Reason: Saline Flush Last Admin: 09/04/17 21:06 Dose: 10 ml Tramadol HCl (Ultram) 100 mg PO Q4H PRN PRN Reason: Moderate Pain (4-6) Last Admin: 09/04/17 17:19 Dose: 100 mg
[2017-09-05] MEDS: Nitroglycerin 2% Ointment 1 INCH/1 GM Packet TOP SCH (03:14)
[2017-09-05] MEDS: Levothyroxine Sodium 100 MCG TAB PO SCH (04:13)
[2017-09-05 05:04] LABS: #Basophils 0.1 thou/uL (0.0-0.2); #Lymphocytes 1.4 thou/uL (1.20-3.40); #Monocytes 0.5 thou/uL (0.11-0.59); #Neutrophils 3.7 thou/uL (1.40-6.50); %Basophils 0.9 % (0.0-1.0); %Eosinophils 0.1 % (0.0-10.0); %Lymphocytes 24.5 % (21.0-51.0); %Monocytes 8.9 % (0.0-10.0); %Neutrophils 65.6 % (42.0-75.0); Hemoglobin 12.8 g/dL (12.0-16.0); Mean Corpuscular HGB CONC 32.8 g/dL (32.0-36.0); Mean Corpuscular Hemoglobin 29.5 pg (27.0-31.0); Mean Platelet Volume 9.8 fL (7.4-10.4); Platelet Count 151 thou/uL (130-400); Red Blood Cell (RBC) Count 4.35 mill/uL (4.20-5.40); White Blood Cell (WBC) Count 5.6 thou/uL (4.8-10.8)
[2017-09-05] MEDS: Metoprolol Tartrate 5 MG/5 ML VIAL IVP SCH (05:31)
[2017-09-05 05:51] LABS: Anion Gap 9 mmol/L (10-20); BUN (Urea Nitrogen) 12 mg/dL (9.8-20.1); BUN/Creatinine Ratio 17.65; Calc. Creatinine Clearance 57 mL/min (70-130); Calcium 8.4 mg/dL (7.8-10.44); Carbon Dioxide 30 mmol/L (23-31); Chloride 102 mmol/L (98-107); Estimated GFR-MDRD Greater than 90; Glucose 138 mg/dL (83-110); Magnesium 1.9 mg/dL (1.6-2.6); Phosphorus 2.1 mg/dL (2.3-4.7); Potassium 3.9 mmol/L (3.5-5.1); Sodium 137 mmol/L (136-145)
[2017-09-05] MEDS ORDERED: Potassium Phosphate 12 MMOL in Sodium Chloride 0.9% 100 ML IVPB SCH (08:00)
[2017-09-05] MEDS: Lisinopril 20 MG TAB PO SCH (08:44)
[2017-09-05] MEDS: traMADol HCl 50 MG TAB PO PRN (08:44)
[2017-09-05] MEDS: Digoxin 0.125 MG TAB PO SCH (08:45)
[2017-09-05] MEDS: Aspirin 81 mg Enteric Coated Tablet PO SCH (08:45)
[2017-09-05] MEDS: Amlodipine 5 MG TAB PO SCH (08:45)
[2017-09-05] MEDS: Pantoprazole 40 MG VIAL IVP SCH (08:45)
[2017-09-05] MEDS: Carbidopa/Levodopa CR 50-200 mg Tablet PO SCH (08:46)
[2017-09-05] MEDS ORDERED: Polyethylene Glycol 3350 17 GM Packet PO SCH (09:00)
[2017-09-05 09:24] VITALS: BP 130/85; TEMP 99
[2017-09-05] MEDS: cefTRIAXone\\ROCEPHIN 1 GM, Syringe 0.4 ML in Sterile Water 9.6 ML SLOW IVP SCH (11:14)
--- NOTE | 2017-09-05 17:35 | DIS ---
DATE OF DISCHARGE: 09/05/2017 DISCHARGE DISPOSITION: Home with family. FOLLOWUP: Follow up with primary care physician, Dr. Kaylynn Ghotra in 1 week. Follow up with Cardiol ogy, Dr. Rafa Garcia and GI, Dr. Luis Robbins as scheduled. ALLERGIES: No known drug allergies. The patient was seen and examined on the day of discharge. Denies any new complaints. Symptomatical ly feels much better. DISCHARGE MEDICATIONS: 1. Lisinopril 20 mg b.i.d. (dose increased). 2. MiraLax 17 grams 3 times daily (dose increased). 3. Senokot S two tablets b.i.d. if the patient is not tolerating MiraLax. 4. Other home medications were resumed including amlodipine 10 mg daily, anastrozole 1 mg daily, asp irin 81 mg daily, Lipitor 40 mg daily, carbidopa/levodopa 50/200 half tablet 3 times daily, vitamin D 3 1000 units daily, digoxin 0.125 mg daily, glimepiride 2 mg daily, NovoLog sliding scale, Lantus 15 units q.p.m., levothyroxine 100 mcg daily, lisinopril 20 mg b.i.d., as discussed above, Reglan as nee ded, omeprazole 40 mg daily, Zofran as needed, pentoxifylline 400 mg three times daily, Seroquel 12.5 mg b.i.d., tramadol as needed, vitamin E 400 units daily. BRIEF HOSPITAL COURSE: The patient is an 82-year-old female with presbyesophagus with previous fundo plication, presented to the hospital with intractable nausea and vomiting. Please refer to the histo ry and physical dated 08/30/2017 for further details. The patient was admitted to the hospital with a diagnosis of intractable nausea and vomiting of uncle ar etiology. She also had chest discomfort with indeterminate troponins. She was monitored on the t elemetry unit. She was evaluated by General Surgery as well as Cardiology. Blood pressure was manag ed with IV medications that has been changed to oral. For intractable nausea and vomiting, patient u nderwent upper GI series with air contrast that showed marked tortuosity of the esophagus and evidenc e of hiatal hernia. Gastric emptying scan was done yesterday that was essentially normal. According to Dr. Luis Robbins, her symptoms are probably secondary to constipation. She also underwent a mod ified speech barium swallow per speech language pathologist. She was advised to continue the modifie d diet per recommendations. She has been cleared by consultants for discharge. FINAL DIAGNOSES: 1. Intractable nausea and vomiting, probably precipitated by underlying constipation. 2. Epigastric discomfort/chest discomfort, unlikely to be acute coronary syndrome. 3. Indeterminate troponins, probably secondary to elevated blood pressure. 4. Uncontrolled hypertension on admission, resolved. 5. Diabetes mellitus type 2 with suspected diabetic gastroparesis. 6. Gastroesophageal reflux disease. 7. History of Clarissa fundoplication. 8. Dyslipidemia. 9. Parkinson disease. 10. Hypokalemia, replaced. 11. Hypophosphatemia, replaced. 12. Chronic kidney disease stage 2. 13. Dehydration. 14. Physical deconditioning. 15. Escherichia coli urinary tract infection. Patient completed IV ceftriaxone for 5 days during th is hospital stay. 16. Swallow dysfunction, currently on modified diet. 17. Moderate protein calorie malnutrition. Plan of care was discussed with the patient and the family in detail. They stated understanding.
[2017-09-06] MEDS ORDERED: Amlodipine 10 MG TAB PO SCH (09:00)
== END 2017-09-05 12:36 | disposition home or self-care (01) | DRG 690 ==
LOC: ERS 12:01 → 2SW 14:35 → OBSVTOIN 08-31 18:10
PROVIDERS: ADMIT Internal Medicine; ATTEND Internal Medicine
DX: N39.0 Urinary tract infection, site not specified (principal); E44.0 Moderate protein-calorie malnutrition; E11.22 Type 2 diabetes mellitus with diabetic chronic kidney disease; K31.84 Gastroparesis; E83.39 Other disorders of phosphorus metabolism; E11.51 Type 2 diabetes mellitus with diabetic peripheral angiopathy without gangrene; E11.43 Type 2 diabetes mellitus with diabetic autonomic (poly)neuropathy; K59.09 Other constipation; R11.2 Nausea with vomiting, unspecified; G20 Parkinson's disease; K22.8 Other specified diseases of esophagus; E78.5 Hyperlipidemia, unspecified; Z85.3 Personal history of malignant neoplasm of breast; Z90.12 Acquired absence of left breast and nipple; K21.9 Gastro-esophageal reflux disease without esophagitis; E87.6 Hypokalemia; I12.9 Hypertensive chronic kidney disease with stage 1 through stage 4 chronic kidney disease, or unspecified chronic kidney disease; N18.2 Chronic kidney disease, stage 2 (mild); E86.0 Dehydration; R13.12 Dysphagia, oropharyngeal phase; Z79.82 Long term (current) use of aspirin; Z79.4 Long term (current) use of insulin; K44.9 Diaphragmatic hernia without obstruction or gangrene; B96.20 Unspecified Escherichia coli [E. coli] as the cause of diseases classified elsewhere; Z68.20 Body mass index [BMI] 20.0-20.9, adult; E03.9 Hypothyroidism, unspecified
CPT/HCPCS: 36415; 36416; 74022; 74230; 74247; 78264; 80053; 80069; 80162; 81001; 82306; 82533; 82550; 82553; 82607; 82746; 83605; 83690; 83735; 84484; 85025; 87077; 87086; 87186; 93005; 94760; 96365; 96366; 96375; A4216; A9541; C9113; G8996-GN-CJ; G8996-GN-CK; G8997-GN-CJ; G8997-GN-CK; J0360; J0696; J1815; J1885; J2270; J2405; J2550; J2765; J7050

== ENCOUNTER 2017-12-12 14:36 | Emergency (ER) | payer MEDICARE, MEDICAID ==
[2017-12-12 15:51] LABS: #Lymphocytes 0.5 thou/uL (1.20-3.40); #Monocytes 0.1 thou/uL (0.11-0.59); #Neutrophils 4.9 thou/uL (1.40-6.50); %Basophils 0.4 % (0.0-1.0); %Monocytes 2.4 % (0.0-10.0); %Neutrophils 89.2 % (42.0-75.0); Hemoglobin 13.2 g/dL (12.0-16.0); Mean Corpuscular HGB CONC 32.7 g/dL (32.0-36.0); Mean Corpuscular Hemoglobin 28.5 pg (27.0-31.0); Mean Corpuscular Volume 87.1 fl (81.0-99.0); Mean Platelet Volume 9.2 fL (7.4-10.4); Platelet Count 182 thou/uL (130-400); RBC Distribution Width 12.2 % (11.5-14.5); Red Blood Cell (RBC) Count 4.62 mill/uL (4.20-5.40); White Blood Cell (WBC) Count 5.5 thou/uL (4.8-10.8)
[2017-12-12 16:12] LABS: ALT (SGPT) 18 U/L (8-55); AST (SGOT) 25 U/L (5-34); Albumin 4.2 g/dL (3.4-4.8); Alkaline Phosphatase 82 U/L (40-150); Anion Gap 15 mmol/L (10-20); BUN (Urea Nitrogen) 16 mg/dL (9.8-20.1); Bilirubin, Total 0.4 mg/dL (0.2-1.2); Calc. Creatinine Clearance 0 mL/min (70-130); Calcium 9.4 mg/dL (7.8-10.44); Carbon Dioxide 27 mmol/L (23-31); Chloride 98 mmol/L (98-107); Estimated GFR-MDRD 73; Globulin 3.6 g/dL (2.4-3.5); Glucose 298 mg/dL (83-110); Potassium 3.6 mmol/L (3.5-5.1); Protein, Total 7.8 g/dL (6.0-8.3); Sodium 136 mmol/L (136-145)
[2017-12-12 17:52] LABS: Bilirubin Negative (Negative); Blood, Urine Moderate (Negative); Clarity CLOUDY (Clear); Glucose, Urine (Dipstick) 500 mg/dL (Negative); Leukocyte Negative (Negative); Nitrite Positive (Negative); Protein, Urine (Dipstick) 300 mg/dL (Neg-Trace); Specific Gravity, Urine 1.019 (1.002-1.036)
[2017-12-12] MEDS ORDERED: Ondansetron ODT 4 MG TAB ONE (17:53)
[2017-12-12 17:55] LABS: Bacteria/HPF 4+ HPF (None Seen); Hyaline Casts/LPF 0-3 HYALINE CAST LPF (0-3 Hyaline); Pathc Cast-AUWi Flag 0.29 (0-2.49); Squamous Epithelial None Seen HPF (0-3); WBC/HPF 21-50 HPF (0-3)
[2017-12-12] MEDS ORDERED: Acetaminophen 650 MG Suppository ONE (18:16)
[2017-12-12] MEDS ORDERED: cloNIDine 0.1 MG TAB ONE (19:06)
--- NOTE | 2017-12-12 20:46 | RAD ---
ABDOMEN ONE VIEW: 12/12/17 HISTORY: 82-year-old female with constipation, history of Parkinson's disease. COMPARISON: 08/30/17 There is some rotation to the right with some associated dextroscoliosis. Gas and fecal material is n oted in the colon but no evidence for large or small bowel obstruction. No significant evidence for o bstipation. Generalized degenerative change of the lumbar spine as well as some bone demineralization . IMPRESSION: No overt bowel obstruction. There is some scattered fecal material in the colon but no evidence for s ignificant plain film evidence of constipation. Stable appearing from prior study. POS: [facility]
== END 2017-12-12 20:13 | disposition home or self-care (01) ==
LOC: ERS 14:36
DX: E86.0 Dehydration (principal); N39.0 Urinary tract infection, site not specified; K21.9 Gastro-esophageal reflux disease without esophagitis; E11.40 Type 2 diabetes mellitus with diabetic neuropathy, unspecified; I50.9 Heart failure, unspecified; E03.9 Hypothyroidism, unspecified; F20.9 Schizophrenia, unspecified; F25.9 Schizoaffective disorder, unspecified; Z79.4 Long term (current) use of insulin; Z79.899 Other long term (current) drug therapy; Z79.82 Long term (current) use of aspirin
CPT/HCPCS: 51701; 74018; 80053; 81003; 81015; 85025; 87077; 87086; 87186; 96361; 96374; A4353; J0696; Q0162

== ENCOUNTER 2018-01-12 07:27 | Inpatient (IN) | payer MEDICARE, MEDICAID ==
[2018-01-12] MEDS ORDERED: Ondansetron ODT 4 MG TAB ONE ×2 (08:24→09:43)
[2018-01-12 08:27] LABS: #Lymphocytes 0.7 thou/uL (1.20-3.40); #Monocytes 0.2 thou/uL (0.11-0.59); #Neutrophils 3.2 thou/uL (1.40-6.50); %Basophils 0.2 % (0.0-1.0); %Lymphocytes 16.6 % (21.0-51.0); %Monocytes 5.1 % (0.0-10.0); %Neutrophils 78.1 % (42.0-75.0); Hemoglobin 13.7 g/dL (12.0-16.0); Mean Corpuscular HGB CONC 32.4 g/dL (32.0-36.0); Mean Corpuscular Hemoglobin 28.7 pg (27.0-31.0); Mean Corpuscular Volume 88.8 fl (81.0-99.0); Mean Platelet Volume 8.9 fL (7.4-10.4); Platelet Count 193 thou/uL (130-400); RBC Distribution Width 12.8 % (11.5-14.5); Red Blood Cell (RBC) Count 4.75 mill/uL (4.20-5.40); White Blood Cell (WBC) Count 4.1 thou/uL (4.8-10.8)
[2018-01-12 08:45] LABS: ALT (SGPT) 18 U/L (8-55); AST (SGOT) 16 U/L (5-34); Albumin 4.4 g/dL (3.4-4.8); Alkaline Phosphatase 62 U/L (40-150); Anion Gap 15 mmol/L (10-20); BUN (Urea Nitrogen) 10 mg/dL (9.8-20.1); Bilirubin, Total 0.7 mg/dL (0.2-1.2); CK (CPK) 96 U/L (29-168); Calc. Creatinine Clearance 0 mL/min (70-130); Calcium 9.7 mg/dL (7.8-10.44); Carbon Dioxide 30 mmol/L (23-31); Chloride 96 mmol/L (98-107); Estimated GFR-MDRD 62; Globulin 3.1 g/dL (2.4-3.5); Glucose 262 mg/dL (83-110); Lipase 16 U/L (8-78); Potassium 3.1 mmol/L (3.5-5.1); Protein, Total 7.5 g/dL (6.0-8.3); Sodium 138 mmol/L (136-145)
[2018-01-12 08:49] LABS: CKMB 1.1 ng/mL (0-6.6); Troponin I 0.015 ng/mL (< 0.028)
[2018-01-12 10:09] LABS: Bilirubin Negative (Negative); Blood, Urine Negative (Negative); Clarity CLEAR (Clear); Glucose, Urine (Dipstick) 250 mg/dL (Negative); Leukocyte Negative (Negative); Nitrite Negative (Negative); Protein, Urine (Dipstick) 100 mg/dL (Neg-Trace); Specific Gravity, Urine 1.014 (1.002-1.036); Urobilinogen 0.2 mg/dL (0.2-1.0); pH, Urine 6.5 (5.0-9.0)
[2018-01-12 10:12] LABS: Bacteria/HPF None Seen HPF (None Seen); Hyaline Casts/LPF 0-3 HYALINE CAST LPF (0-3 Hyaline); Pathc Cast-AUWi Flag 0.14 (0-2.49); RBC/HPF 0-3 HPF (0-3); Squamous Epithelial 0-3 HPF (0-3); WBC/HPF 0-3 HPF (0-3)
--- NOTE | 2018-01-12 10:38 | RAD ---
PORTABLE CHEST: Date: 01/12/18 HISTORY: Chest pain, nausea, and vomiting. FINDINGS: Heart size is within normal limits. There are atherosclerotic changes of the aorta. Lungs are clear o f infiltrates. Surgical clips are seen in the left axilla. IMPRESSION: No active intrathoracic disease. POS: [facility]
[2018-01-12] MEDS ORDERED: Metoclopramide HCl 10 MG/2 ML VIAL ONE (11:12)
[2018-01-12 11:54] LABS: Magnesium 1.8 mg/dL (1.6-2.6); Phosphorus 2.2 mg/dL (2.3-4.7)
[2018-01-12] MEDS ORDERED: ISOVUE-370 76%-LOCM 1 ML ONE (12:14)
--- NOTE | 2018-01-12 13:01 | CT ---
CT OF ABDOMEN AND PELVIS PERFORMED WITH CONTRAST ENHANCEMENT: Date: 01/12/18 HISTORY: Abdominal pain, nausea and vomiting. COMPARISON: 06/15/17 study. FINDINGS: Lung bases are clear of any infiltrative process. A large hiatal hernia is again demonstrated. Tiny a mount of pericardial fluid is seen. The liver and spleen are normal in appearance. Pancreas shows no evidence of mass. There is ductal di latation of the pancreas and common bile duct, probably related to cholecystectomy as it appears fair ly similar to the previous exam. Right and left adrenal glands, and right and left kidneys are normal in size. Hypodensity involving t he right kidney is statistically a small cyst. There is no significant periaortic or mesenteric adeno felicia. No signs of bowel obstruction. There is questionable slight wall thickening to the right colon versus underdistention, more likely on the basis of underdistention. No signs of pneumatosis. CT of pelvis was performed with contrast enhancement. The bladder is distended. There is no adenopath y, mass, or free fluid. There are arthritic changes of the spine and hips. IMPRESSION: 1. Large hiatal hernia. 2. Postop cholecystectomy change. 3. No acute abnormalities of the abdomen or pelvis. POS: [facility]
[2018-01-12] MEDS ORDERED: Ondansetron HCl/PF 4 MG/2 ML Vial IVP PRN ×2 (14:27→16:38)
[2018-01-12] MEDS ORDERED: Ondansetron ODT 4 MG TAB SL PRN (14:27)
[2018-01-12 14:35] VITALS: BMI 17.6
[2018-01-12] MEDS ORDERED: traMADol HCl 50 MG TAB PO PRN (14:35)
[2018-01-12] MEDS ORDERED: Promethazine HCl 25 MG in Sodium Chloride 0.9% 50 ML IVPB PRN (14:36)
[2018-01-12] MEDS ORDERED: traMADol HCl 50 MG TAB PO SCH (16:30)
[2018-01-12] MEDS ORDERED: Bisacodyl 10 MG SUPP PR PRN (16:38)
[2018-01-12] MEDS ORDERED: Acetaminophen 325 MG TAB PO PRN (16:38)
[2018-01-12] MEDS ORDERED: Fleet Enema 133 ML BOT PR PRN (16:38)
[2018-01-12] MEDS ORDERED: Nitroglycerin 0.4 MG TAB (25 Tab Bottle) PO PRN (16:38)
[2018-01-12] MEDS ORDERED: Calcium Carbonate 500 MG ChewTAB PO PRN (16:38)
[2018-01-12] MEDS ORDERED: hydrALAZINE 20 MG/ML VIAL SLOW IVP PRN (16:42)
[2018-01-12] MEDS ORDERED: Dextrose 5% in Water 1,000 ML IV PRN (16:44)
[2018-01-12] MEDS ORDERED: Insulin Regular 300 UNITS/3 ML VIAL SC PRN ×2 (16:44)
[2018-01-12] MEDS ORDERED: Dextrose 50% Abboject 50 ML SYRINGE SLOW IVP PRN (16:44)
--- NOTE | 2018-01-12 17:00 | HP ---
DATE OF ADMISSION: 01/12/2018 PRIMARY CARE PHYSICIAN: Dr. Kaylynn Ghotra. PRIMARY SKIP HOIST ENGINEER: Dr. Robbins. CHIEF COMPLAINT: Nausea and vomiting with coffee-ground emesis today. HISTORY OF PRESENT ILLNESS: The patient is an 82-year-old female with presbyesophagus, large hiatal hernia, diabetes mellitus type 2, and Clarissa fundoplication in the past, presented to the emergency r [facility] with above complaints. Patient was last hospitalized at this facility with nausea and vomiting i n August of this year. Patient was evaluated by Gastroenterology as well as Cardiology at that time . Over the last one week, patient has on and off nausea with vomiting that has been progressively getti ng worse. She is unable to eat or drink during this duration. She has constant generalized abdomina l cramping. No fever, chills, sick contacts reported. Abdominal discomfort was 9/10, intermittent. The vomitus contained food which she had eaten. She has issues with chronic constipation requiring Dulcolax and enemas. She recently had an enema. Patient had a coffee-ground emesis in the emergency room. Her Hemoccult stool was positive. She has been feeling generally weak and fatigued and has n ot been able to ambulate much. In the emergency room, initial vital signs showed temperature 98.3, respirations 21, pulse rate of 90 , blood pressure of 187/75 with O2 saturation 98% on room air. CT scan of the abdomen in the emergen cy room with IV contrast showed large hiatal hernia. She was found to have electrolyte abnormalities including hypokalemia with potassium 3.1 and hypophosphatemia with phosphorus of 2.2. She received several medications without significant relief including Reglan, Zofran, Bentyl, and IV fluids. PAST MEDICAL HISTORY: 1. Diabetes mellitus type 2. 2. Chronic constipation. 3. Presbyesophagus. 4. History of Clarissa fundoplication. 5. Diabetes mellitus type 2 with suspected diabetic gastroparesis. 6. Hypertension. 7. Dyslipidemia. 8. Parkinson's disease. 9. Recent Escherichia coli urinary tract infection, completed antibiotics. 10. Swallow dysfunction. 11. Moderate protein calorie malnutrition. 12. History of breast cancer. 13. Schizoaffective disorder. 14. Peripheral neuropathy. 15. External hemorrhoids. PAST SURGICAL HISTORY: 1. Bladder suspension. 2. Hysterectomy. 3. Mastectomy of the left breast. 4. Gastric fundoplication. 5. Cholecystectomy. 6. Tubal ligation. ALLERGIES: No known drug allergies. CURRENT HOME MEDICATIONS: Family to get accurate list of medications. The patient does not recall a ll of her home medications. SOCIAL HISTORY: She ambulates with the help of a cane and walker. She currently lives at home. No smoking, alcohol or drug use. She is FULL CODE and makes decision with the help of her family. FAMILY HISTORY: Negative for heart disease or malignancy. REVIEW OF SYSTEMS: The following complete review of systems was negative, unless otherwise mentioned in the HPI or below: Constitutional: Weight loss or gain, ability to conduct usual activities. Skin: Rash, itching. Eyes: Double vision, pain. ENT/Mouth: Nose bleeding, neck stiffness, pain, tenderness. Cardiovascular: Palpitations, dyspnea on exertion, orthopnea. Respiratory: Shortness of breath, wheezing, cough, hemoptysis, fever or night sweats. Gastrointestinal: Poor appetite, abdominal pain, heartburn, nausea, vomiting, constipation, or diarr hea. Genitourinary: Urgency, frequency, dysuria, nocturia. Musculoskeletal: Pain, swelling. Neurologic/Psychiatric: Anxiety, depression. Allergy/Immunologic: Skin rash, bleeding tendency. PHYSICAL EXAMINATION: VITAL SIGNS: As discussed above. GENERAL: An 82-year-old cachectic female with nausea and vomiting. There is emesis bag in her hand. HEENT: Head is atraumatic, normocephalic. Sclerae are anicteric. Dry mucous membranes. There were no oral lesions seen. NECK: Supple. There is no carotid bruit, no JVD appreciated. LUNGS: Essentially clear to auscultation bilaterally. There were no wheezing, rales or rhonchi. No accessory muscle use. HEART: S1 and S2 present. Regular rate and rhythm. No rubs or gallops appreciated. There was a 2/ 6 systolic murmur over the mitral area. ABDOMEN: Soft. There is generalized tenderness without any rebound or guarding. No costovertebral angle tenderness. Bowel sounds present. EXTREMITIES: No edema or calf tenderness. NEUROLOGIC: Grossly nonfocal, moves all four extremities. Normal tone. PSYCHIATRY: Alert, awake, oriented x3. SKIN: Warm and dry. LYMPH NODES: No palpable lymph nodes in the neck. PERIPHERAL VASCULAR: Radial pulses palpable bilaterally. MUSCULOSKELETAL: No joint swelling or tenderness. LABORATORY DATA AND IMAGING DATA: 1. Potassium 3.1, phosphorus 2.2. Troponins were negative. Creatinine 1.03 with BUN 10. 2. CBC showed WBC 4.1 with hemoglobin 13.7, hematocrit 42.2. 3. Urinalysis was negative for WBC, bacteria. 4. Gastric occult blood was positive. 5. Stool for occult blood was negative. 6. Chest x-ray by my review was negative for infiltrate. 7. CT scan of the abdomen and pelvis as discussed above. IMPRESSION: 1. Intractable nausea and vomiting with hematemesis that has been ongoing for last 1 week or so. David camejo is unable to tolerate oral intake. She is dehydrated and has been feeling generally weak and fatig ued. 2. Generalized abdominal discomfort. 3. Hypertension, uncontrolled. 4. Diabetes mellitus type 2 with suspected diabetic gastroparesis. 5. Hiatal hernia. 6. Clarissa fundoplication. 7. Parkinson's disease. 8. Electrolyte imbalance. The patient has hypokalemia and hypophosphatemia. 9. Chronic kidney disease stage 2. 10. Dehydration. 11. Physical deconditioning. 12. Recent urinary tract infection, completed antibiotic. 13. History of swallow dysfunction. 14. Moderate protein calorie malnutrition. PLAN: Patient will be monitored on the medical floor. Patient will require 2-3 days for stabilizati on. She will continue Zofran and Phenergan as needed. We will control pain with tramadol. Gastroen terology will be consulted. We will replace electrolytes. We will start her on IV Protonix. We janneth l resume all other home medications once confirmed. We will hold aspirin for now due to hematemesis. We will start her on sliding scale. Plan of care was discussed with the patient and the family at the bedside. They stated understanding .
[2018-01-12] MEDS: Sodium Chloride 0.9% 1,000 ML IV SCH (17:08)
[2018-01-12] MEDS ORDERED: Potassium Phosphate 12 MMOL in Sodium Chloride 0.9% 100 ML IVPB SCH (17:15)
--- NOTE | 2018-01-12 20:06 | CON ---
DATE OF CONSULTATION: 01/12/2018 GI INPATIENT CONSULTATION NOTE REQUESTING PHYSICIAN: John Gomez M.D. REASON FOR CONSULTATION: Nausea, vomiting, coffee-ground emesis. HISTORY OF PRESENT ILLNESS: Alexa Elliott is an 82-year-old woman with a history of P arkinson's disease and diabetes with neuropathy. She has a prior history of breast cancer as well. She has had multiple abdominal surgeries including bladder suspension, hysterectomy, and cholecystect bam as well as a fundoplication in the distant past. She has chronic constipation. She has undergon e workup in the fairly recent past for intermittent episodes of protracted nausea and vomiting lastin g several days at a time. In 05/2017, Dr. Cuello performed an EGD. This demonstrated a small hiatal hernia above her fundoplication wrap and a small benign duodenal nodule as well as presbyesophagus. She was hospitalized in 08/2017 with recurrent symptoms of nausea and vomiting. She had a gastric e mptying study which was normal. She had a modified barium swallow, which was normal as well. The [place] daughter relates that nothing significant has changed over the past few months since then. S he will have several good weeks and then several bad days at a time. Over the past week, she has had recurrent nausea and vomiting multiple times per day and her oral intake has subsequently declined. Then, just prior to presentation, she had an episode of coffee-ground emesis. This was a single epi sode and has not recurred since her admission earlier today. She is hemodynamically stable. Hemoglo bin 13.7, but Gastroccult testing was positive. REVIEW OF SYSTEMS: Unable to obtain from the patient that she is essentially nonverbal. History is obtained from the patient's daughter who is with her in the room. PAST MEDICAL HISTORY: Parkinson's disease, diabetes, peripheral neuropathy, hyperlipidemia, hyperten hilario, breast cancer status post mastectomy, peripheral vascular disease, uterine prolapse, bladder baird spension, hysterectomy, cholecystectomy, Clarissa fundoplication, chronic constipation, hiatal hernia, and presbyesophagus. SOCIAL HISTORY: No smoking or alcohol use. FAMILY HISTORY: Negative for GI malignancy. ALLERGIES: No known drug allergies. OUTPATIENT MEDICATIONS: Insulin, NovoLog, Senokot 2 tabs twice daily, vitamin D3 2000 units daily, v itamin E 400 units daily, Zofran p.r.n., pioglitazone 15 mg daily, omeprazole 2 pills daily, carbidop a/levodopa 0.5 tabs t.i.d., pentoxifylline 400 mg p.o. t.i.d., levothyroxine 100 mcg daily, Digoxin 1 tab p.o. daily, anastrozole 1 mg daily, Seroquel 12.5 mg b.i.d., lisinopril 20 mg p.o. daily, atorva statin 40 mg p.o. daily, amlodipine 10 mg p.o. daily, aspirin 81 mg daily. PHYSICAL EXAMINATION: VITAL SIGNS: Temperature 98.4, pulse 70, blood pressure 153/66, 96% oxygen saturation on room air. GENERAL: An 82-year-old woman appearing chronically ill, but nontoxic, lying in bed comfortably, in no distress. MENTAL: The patient is nonverbal. She does not follow commands. She is calm and cooperative. SKIN: No jaundice, no rashes were palpable. EYES: No scleral icterus. Extraocular movements intact. ENT: Mucous membranes moist, no oral lesions. LYMPH: No submandibular, supraclavicular lymphadenopathy. THYROID: Nontender to palpation. HEART: Regular rate and rhythm. LUNGS: Clear to auscultation bilaterally. ABDOMEN: Flat, bowel sounds present, soft, nontender to palpation throughout. EXTREMITIES: No peripheral edema. VESSELS: Radial pulses 2+ bilaterally. NEUROLOGICAL: Cranial nerves II-XII intact bilaterally. LABORATORY STUDIES: Hemoglobin 13.7, WBC 4.1, platelets 193. Sodium 138, potassium 3.1, BUN 10, cre atinine 1.03, glucose 262. LFTs all normal with total bilirubin 0.7, alkaline phosphatase 62, AST 16 , ALT 18, albumin 4.4, lipase 16. Troponin negative. CK 96. IMAGING STUDIES: Chest x-ray showed no acute processes. CT of the abdomen and pelvis showed no acut e processes. It did demonstrate a large hiatal hernia, normal appearing liver, spleen and pancreas, stable CBD dilation consistent with postoperative cholecystectomy state. There is some under distent ion of the right colon. ASSESSMENT AND PLAN: 1. Nausea and vomiting, persistent, recurrent. 2. Coffee-ground emesis. 3. Hiatal hernia. 4. Chronic constipation. Looking back at her EGD report from last May, her hiatal hernia was described as small at that ti me, but on the CT scan, this is quite noticeable. I reviewed the images from her upper GI contrast e xam from August as well. I suppose it is possible that her fundoplication may have slipped even mor e and that she might have had recurrence of a larger hiatal hernia. This might be contributing to he r nausea and vomiting episodes. The constipation may also be playing a role here. Particularly now with this recent episode of coffee ground emesis, we will plan for upper endoscopy for further invest igation tomorrow. If the EGD is unrevealing or unchanged, we could focus on more aggressive bowel re gimen. Thank you for the consultation. Please call with questions or concerns.
[2018-01-12] MEDS: Lisinopril 10 MG TAB PO SCH (20:18)
[2018-01-12] MEDS: Senokot S 8.6-50 MG TAB PO SCH (20:20)
[2018-01-12] MEDS: Amlodipine 5 MG TAB PO SCH (20:20)
[2018-01-12] MEDS: Carbidopa/Levodopa CR 50-200 mg Tablet PO SCH (20:21)
[2018-01-12] MEDS: Pantoprazole 40 MG VIAL IVP SCH (20:22)
[2018-01-12] MEDS ORDERED: Prevnar 13-Val Conj/PF 0.5 ML SYRINGE IM ONE (21:00)
[2018-01-12] MEDS: traMADol HCl 50 MG TAB PO PRN (21:42)
[2018-01-13] MEDS: Levothyroxine Sodium 100 MCG TAB PO SCH (05:26)
[2018-01-13 05:36] LABS: #Lymphocytes 1.7 thou/uL (1.20-3.40); #Monocytes 0.8 thou/uL (0.11-0.59); #Neutrophils 3.6 thou/uL (1.40-6.50); %Basophils 0.3 % (0.0-1.0); %Eosinophils 0.1 % (0.0-10.0); %Monocytes 12.6 % (0.0-10.0); %Neutrophils 59.1 % (42.0-75.0); Hemoglobin 13.1 g/dL (12.0-16.0); Mean Corpuscular HGB CONC 31.8 g/dL (32.0-36.0); Mean Corpuscular Hemoglobin 27.9 pg (27.0-31.0); Mean Corpuscular Volume 87.8 fl (81.0-99.0); Mean Platelet Volume 8.8 fL (7.4-10.4); Platelet Count 186 thou/uL (130-400); RBC Distribution Width 12.9 % (11.5-14.5); Red Blood Cell (RBC) Count 4.69 mill/uL (4.20-5.40); White Blood Cell (WBC) Count 6.2 thou/uL (4.8-10.8)
[2018-01-13 05:48] LABS: Albumin 3.9 g/dL (3.4-4.8); Anion Gap 9 mmol/L (10-20); BUN (Urea Nitrogen) 9 mg/dL (9.8-20.1); BUN/Creatinine Ratio 11.54; Calc. Creatinine Clearance 44 mL/min (70-130); Calcium 9.1 mg/dL (7.8-10.44); Carbon Dioxide 34 mmol/L (23-31); Chloride 96 mmol/L (98-107); Estimated GFR-MDRD 86; Glucose 156 mg/dL (83-110); Magnesium 1.6 mg/dL (1.6-2.6); Phosphorus 2.5 mg/dL (2.3-4.7); Sodium 136 mmol/L (136-145)
[2018-01-13 05:52] LABS: Potassium 2.9 mmol/L (3.5-5.1)
[2018-01-13] MEDS ORDERED: Potassium Chloride 40 MEQ in Sodium Chloride 0.9% 250 ML 250 ML IVPB SCH (06:15)
[2018-01-13] MEDS: traMADol HCl 50 MG TAB PO PRN ×2 (07:14→14:27)
[2018-01-13] MEDS: Senokot S 8.6-50 MG TAB PO SCH ×2 (08:22→22:31)
[2018-01-13] MEDS: Pantoprazole 40 MG VIAL IVP SCH ×2 (08:22→22:31)
[2018-01-13] MEDS: Digoxin 0.125 MG TAB PO SCH (08:22)
[2018-01-13] MEDS: Anastrozole 1 MG TAB PO SCH (08:23)
[2018-01-13] MEDS: Amlodipine 5 MG TAB PO SCH ×2 (08:23→22:30)
[2018-01-13] MEDS: Carbidopa/Levodopa CR 50-200 mg Tablet PO SCH ×3 (08:23→22:30)
[2018-01-13] MEDS: Lisinopril 10 MG TAB PO SCH ×2 (08:23→22:31)
[2018-01-13] MEDS: Ondansetron ODT 4 MG TAB PO PRN ×2 (08:33→14:27)
[2018-01-13] MEDS ORDERED: hydrALAZINE 20 MG/ML VIAL SLOW IVP PRN (14:07)
[2018-01-13] MEDS: Sodium Chloride 0.9% 1,000 ML IV SCH (14:08)
[2018-01-13] MEDS ORDERED: Potassium Chloride 40 MEQ in Premix Bag 1 BAG IVPB SCH (14:15)
[2018-01-13] MEDS ORDERED: PROPOFOL 200 MG/20 ML VIAL ONE (15:27)
[2018-01-13] MEDS ORDERED: Lidocaine 1% PF 5 ML VIAL ONE (15:27)
--- NOTE | 2018-01-13 15:32 | OP ---
DATE OF PROCEDURE: 01/13/2018 SURGEON: Vinicio Eng M.D. [employer] MAINFRAME DEVELOPER SURGEON: None. PROCEDURE: Esophagogastroduodenoscopy, diagnostic. INDICATIONS: 1. Coffee-ground emesis. 2. Nausea and vomiting, recurrent. 3. Hiatal hernia. MEDICATIONS: See anesthesia record. FINDINGS: After discussion of the risks, benefits and alternatives of the procedure, informed consen t was obtained and witnessed. Pre-endoscopic cardiopulmonary examination was satisfactory. Timeout was performed before sedation was achieved. Sedation was achieved with anesthesia assistance in the endoscopy unit. A Pentax adult upper endoscope was placed into the oropharynx and passed through the cricopharyngeus under direct visualization. The esophagus is quite tortuous, but no significant dil ation and no mucosal abnormalities. The endoscope was passed beyond the GE junction and into the sto mach. The patient has a medium sized hiatal hernia. This appears to be above a slipped fundoplicati on. Within the hiatal hernia space, there is a small amount of retained food including what looks li ke some chicken. There are no Kevin ulcerations or erosions noted. The mucosa of the stomach look s normal throughout. The endoscope was passed through the pylorus and into the first and second port ions of the duodenum which appeared normal. The upper endoscope was completely withdrawn and the pat ient allowed to recover. The patient tolerated the procedure well. There were no immediate post-pro cedure complications. IMPRESSION: 1. Presbyesophagus. 2. Medium sized hiatal hernia with small amount of retained food above what appears to be a slipped fundoplication. 3. Otherwise, normal esophagogastroduodenoscopy. RECOMMENDATIONS: 1. Advance diet as tolerated. 2. In general, the patient should have smaller, but more frequent meals, drinking plenty of fluid be tween bites. 3. Elevate the head of the bed at night. 4. Otherwise, supportive care. The patient is not a very good candidate for consideration of repeat surgery for her hiatal hernia.
[2018-01-13] MEDS: Potassium Chloride 20 MEQ in Premix Bag 1 BAG IVPB SCH ×2 (15:47→17:58)
--- NOTE | 2018-01-13 22:03 | PDOC.PN ---
- Subjective Encounter Start Date: 01/13/18 Encounter Start Time: 13:30 Patient seen and examined for intractable N/V. s/p EGD. Still nauseas. No new complaints. No overnight events - Objective MAR Reviewed: Yes Vital Signs & Weight: Vital Signs (12 hours) Temp Pulse Resp BP Pulse Ox 01/13/18 20:00 98.1 F 96 16 166/75 H 98 01/13/18 16:36 98.9 F 92 16 182/78 H 98 01/13/18 13:30 98.8 F 98 18 175/84 H 99 Weight Weight 105 lb 8.776 oz Result Diagrams: 01/14/18 04:57 01/14/18 04:57 Additional Labs: Accuchecks 01/13/18 01/13/18 01/13/18 20:07 16:37 04:54 POC Glucose 163 H 180 H 143 H Phys Exam - Physical Examination Emesis bag in hand with persistent nausea Respiratory: no wheezing, no rhonchi Cardiovascular: RRR, no rub Gastrointestinal: soft, no distention, positive bowel sounds mild gen tenderness Musculoskeletal: no edema Neurological: non-focal, moves all 4 limbs Dx/Plan (1) Intractable nausea and vomiting Code(s): R11.2 - NAUSEA WITH VOMITING, UNSPECIFIED Status: Acute Comment: with abd pain, Prob due to Gastroparesis/Presbyesophagus/Hiatal hernia (2) General weakness Code(s): R53.1 - WEAKNESS Status: Acute (3) Electrolyte abnormality Code(s): E87.8 - OTH DISORDERS OF ELECTROLYTE AND FLUID BALANCE, NEC Status: Acute (4) DM2 (diabetes mellitus, type 2) Status: Chronic (5) Hypertension Code(s): I10 - ESSENTIAL (PRIMARY) HYPERTENSION Status: Chronic - Plan DVT proph w/SCDs Replace Potassium - 2.9 today -: s/p EGD, Cont Antiemetics, Slowly advance diet -: AM labs -: Cont current meds as below/Cont sliding scale Review of Systems - Review of Systems Respiratory: negative: Cough, Dry, Shortness of Breath, Hemoptysis, SOB with Excertion, Pleuritic Pain, Sputum, Wheezing Cardiovascular: negative: chest pain, palpitations, orthopnea, paroxysmal nocturnal dyspnea, edema, light headedness, other - Medications/Allergies Allergies/Adverse Reactions: Allergies Allergy/AdvReac Type Severity Reaction Status Date / Time No Known Allergies Allergy Verified 01/12/18 14:13 Medications: Current Medications Acetaminophen (Tylenol) 650 mg PO Q4H PRN PRN Reason: Headache/Fever or Pain Amlodipine Besylate (Norvasc) 5 mg PO BID [facility] Last Admin: 01/13/18 08:23 Dose: 5 mg Anastrozole (Arimidex) 1 mg PO DAILY [facility] Last Admin: 01/13/18 08:23 Dose: 1 mg Bisacodyl (Dulcolax) 10 mg WI Q24H PRN PRN Reason: Constipation Calcium Carbonate (Tums) 1,000 mg PO Q4H PRN PRN Reason: Heartburn or Indigestion Carbidopa/Levodopa (Sinemet Cr 50/200) 0.5 tab PO TID [facility] Last Admin: 01/13/18 14:25 Dose: 0.5 tab Dextrose/Water (Dextrose 50%) 25 gm SLOW IVP PRN PRN PRN Reason: Hypoglycemia Digoxin (Lanoxin) 0.125 mg PO DAILY [facility] Last Admin: 01/13/18 08:22 Dose: 0.125 mg Glucagon (Glucagon) 1 mg IM PRN PRN PRN Reason: Hypoglycemia Hydralazine HCl (Apresoline) 10 mg SLOW IVP Q4H PRN PRN Reason: SBP Greater Than 180 Hydralazine HCl (Apresoline) 10 mg SLOW IVP Q4H PRN PRN Reason: SBP Greater Than 180 Promethazine HCl 25 mg/ Sodium (Chloride) 51 mls @ 102 mls/hr IVPB Q6H PRN PRN Reason: Nausea Sodium Chloride (Normal Saline 0.9%) 1,000 mls @ 50 mls/hr IV .Q20H [facility] Last Admin: 01/13/18 14:08 Dose: Not Given Dextrose/Water (D5w) 1,000 mls @ 0 mls/hr IV .Q0M PRN; As Directed PRN Reason: Hypoglycemia Insulin Human Regular (Humulin R) 0 units SC .MILD SLIDING SCALE PRN PRN Reason: Mild Correctional Scale Insulin Human Regular (Humulin R) 0 units SC .BEDTIME SLIDING SC PRN PRN Reason: Bedtime Correctional Scale Levothyroxine Sodium (Synthroid) 100 mcg PO 0600 [facility] Last Admin: 01/13/18 05:26 Dose: 100 mcg Lisinopril (Zestril) 10 mg PO BID [facility] Last Admin: 01/13/18 08:23 Dose: 10 mg Nitroglycerin (Nitrostat) 0.4 mg PO Q5MIN PRN PRN Reason: Chest Pain Ondansetron HCl (Zofran Odt) 4 mg PO Q6H PRN PRN Reason: Nausea/Vomiting Last Admin: 01/13/18 14:27 Dose: 4 mg Ondansetron HCl (Zofran) 4 mg IVP Q6H PRN PRN Reason: Nausea/Vomiting Pantoprazole Sodium (Protonix) 40 mg IVP Q12HR [facility] Last Admin: 01/13/18 08:22 Dose: 40 mg Pentoxifylline (Trental) 400 mg PO TID [facility] Last Admin: 01/13/18 14:25 Dose: 400 mg Quetiapine Fumarate (Seroquel) 12.5 mg PO BID [facility] Last Admin: 01/13/18 08:23 Dose: 12.5 mg Senna/Docusate Sodium (Senokot S) 2 tab PO BID [facility] Last Admin: 01/13/18 08:22 Dose: 2 tab Sodium Biphosphate/Sodium Phosphate (Fleet Enema) 133 ml WI ONE PRN PRN Reason: Constipation Stop: 01/15/18 16:39 Sodium Chloride (Flush - Normal Saline) 10 ml IVF Q12HR [facility] Sodium Chloride (Flush - Normal Saline) 10 ml IVF PRN PRN PRN Reason: Saline Flush Tramadol HCl (Ultram) 100 mg PO Q6H PRN PRN Reason: Pain Last Admin: 01/13/18 14:27 Dose: 100 mg
[2018-01-14 05:52] LABS: #Lymphocytes 1.2 thou/uL (1.20-3.40); #Monocytes 0.5 thou/uL (0.11-0.59); #Neutrophils 3.2 thou/uL (1.40-6.50); %Basophils 0.2 % (0.0-1.0); %Eosinophils 0.1 % (0.0-10.0); %Lymphocytes 24.1 % (21.0-51.0); %Monocytes 10.4 % (0.0-10.0); %Neutrophils 65.2 % (42.0-75.0); Hemoglobin 12.5 g/dL (12.0-16.0); Mean Corpuscular HGB CONC 31.5 g/dL (32.0-36.0); Mean Corpuscular Hemoglobin 27.8 pg (27.0-31.0); Mean Corpuscular Volume 88.2 fl (81.0-99.0); Platelet Count 181 thou/uL (130-400)
[2018-01-14] MEDS: Levothyroxine Sodium 100 MCG TAB PO SCH (05:53)
[2018-01-14] MEDS: Sodium Chloride 0.9% 1,000 ML IV SCH (05:54)
[2018-01-14 06:09] LABS: Albumin 3.4 g/dL (3.4-4.8); Anion Gap 9 mmol/L (10-20); BUN (Urea Nitrogen) 11 mg/dL (9.8-20.1); Calc. Creatinine Clearance 44 mL/min (70-130); Calcium 8.7 mg/dL (7.8-10.44); Carbon Dioxide 31 mmol/L (23-31); Chloride 98 mmol/L (98-107); Estimated GFR-MDRD 86; Glucose 154 mg/dL (83-110); Magnesium 1.6 mg/dL (1.6-2.6); Potassium 3.6 mmol/L (3.5-5.1); Sodium 134 mmol/L (136-145)
[2018-01-14] MEDS: NS 0.9% w/ 40 MEQ KCL 1,000 ML IV SCH (07:00)
[2018-01-14] MEDS ORDERED: Potassium Phosphate 12 MMOL in Sodium Chloride 0.9% 100 ML IVPB SCH (07:00)
[2018-01-14] MEDS: Digoxin 0.125 MG TAB PO SCH (09:26)
[2018-01-14] MEDS: Amlodipine 5 MG TAB PO SCH ×2 (09:26→21:07)
[2018-01-14] MEDS: Senokot S 8.6-50 MG TAB PO SCH ×2 (09:26→21:07)
[2018-01-14] MEDS: Carbidopa/Levodopa CR 50-200 mg Tablet PO SCH ×3 (09:27→21:06)
[2018-01-14] MEDS: Anastrozole 1 MG TAB PO SCH (09:28)
[2018-01-14] MEDS: Pantoprazole 40 MG VIAL IVP SCH ×2 (09:29→21:06)
[2018-01-14] MEDS: Lisinopril 10 MG TAB PO SCH ×2 (09:29→21:06)
--- NOTE | 2018-01-14 18:37 | PRG ---
DATE OF SERVICE: 01/14/2018 SUBJECTIVE: Ms. Elliott has eaten very little today. She has taken her liquids mostly and a little b it of meat loaf. She refused her medicines today. OBJECTIVE: VITAL SIGNS: Temperature 98.6, pulse 96, blood pressure 166/75. GENERAL: She is in no acute distress, awake and alert. LUNGS: Clear to auscultation bilaterally. HEART: Regular rate and rhythm. ABDOMEN: Soft, nontender, nondistended. Bowel sounds are present. EXTREMITIES: No lower extremity edema. IMPRESSION: Dysphagia secondary to presbyesophagus and recurrent hiatal hernia after past history of fundoplication. She is not tolerating a solid diet well. RECOMMENDATIONS: Change to a pureed diet. If she is unable to tolerate that, then consider full liq uids. Ultimately, if she fails to reach nutritional needs with a pureed or full liquid diet, then a gastrostomy tube could be considered.
--- NOTE | 2018-01-14 23:47 | PDOC.PN ---
- Subjective Encounter Start Date: 01/14/18 Encounter Start Time: 15:30 Patient seen and examined for N/V. Poor appetite No new complaints. No overnight events - Objective MAR Reviewed: Yes Vital Signs & Weight: Vital Signs (12 hours) Temp Pulse Resp BP BP Pulse Ox 01/14/18 21:07 95 134/70 01/14/18 21:06 134/70 01/14/18 19:25 99.7 F H 95 20 134/70 95 Weight Admit Weight 106 lb 1.6 oz Weight 105 lb 13.15 oz I&O: 01/13/18 01/14/18 01/15/18 06:59 06:59 06:59 Intake Total 1440 Balance 1440 Result Diagrams: 01/14/18 04:57 01/14/18 04:57 Additional Labs: Accuchecks 01/14/18 01/14/18 01/14/18 16:18 11:56 05:04 POC Glucose 137 H 173 H 139 H Phys Exam - Physical Examination Constitutional: NAD Respiratory: no wheezing, no rhonchi Cardiovascular: RRR, no rub Gastrointestinal: soft, positive bowel sounds mild gen tend, no rebound/guarding Musculoskeletal: no edema Neurological: moves all 4 limbs Dx/Plan (1) Intractable nausea and vomiting Code(s): R11.2 - NAUSEA WITH VOMITING, UNSPECIFIED Status: Acute Comment: with abd pain, Prob due to Gastroparesis/Presbyesophagus/Hiatal hernia (2) General weakness Code(s): R53.1 - WEAKNESS Status: Acute (3) Electrolyte abnormality Code(s): E87.8 - OTH DISORDERS OF ELECTROLYTE AND FLUID BALANCE, NEC Status: Acute (4) DM2 (diabetes mellitus, type 2) Status: Chronic (5) Hypertension Code(s): I10 - ESSENTIAL (PRIMARY) HYPERTENSION Status: Chronic - Plan DVT proph w/lovenox, DVT proph w/SCDs Poor appetite, ?PEG tube -: Cont current meds as below -: Replace electrolytes -: AM labs -: Cont to monitor Review of Systems - Review of Systems Respiratory: negative: Cough, Dry, Shortness of Breath, Hemoptysis, SOB with Excertion, Pleuritic Pain, Sputum, Wheezing Cardiovascular: negative: chest pain, palpitations, orthopnea, paroxysmal nocturnal dyspnea, edema, light headedness, other - Medications/Allergies Allergies/Adverse Reactions: Allergies Allergy/AdvReac Type Severity Reaction Status Date / Time No Known Allergies Allergy Verified 01/12/18 14:13 Medications: Current Medications Acetaminophen (Tylenol) 650 mg PO Q4H PRN PRN Reason: Headache/Fever or Pain Amlodipine Besylate (Norvasc) 5 mg PO BID [facility] Last Admin: 01/14/18 21:07 Dose: 5 mg Anastrozole (Arimidex) 1 mg PO DAILY [facility] Last Admin: 01/14/18 09:28 Dose: 1 mg Bisacodyl (Dulcolax) 10 mg OH Q24H PRN PRN Reason: Constipation Calcium Carbonate (Tums) 1,000 mg PO Q4H PRN PRN Reason: Heartburn or Indigestion Carbidopa/Levodopa (Sinemet Cr 50/200) 0.5 tab PO TID [facility] Last Admin: 01/14/18 21:06 Dose: 0.5 tab Dextrose/Water (Dextrose 50%) 25 gm SLOW IVP PRN PRN PRN Reason: Hypoglycemia Digoxin (Lanoxin) 0.125 mg PO DAILY [facility] Last Admin: 01/14/18 09:26 Dose: 0.125 mg Glucagon (Glucagon) 1 mg IM PRN PRN PRN Reason: Hypoglycemia Hydralazine HCl (Apresoline) 10 mg SLOW IVP Q4H PRN PRN Reason: SBP Greater Than 180 Hydralazine HCl (Apresoline) 10 mg SLOW IVP Q4H PRN PRN Reason: SBP Greater Than 180 Promethazine HCl 25 mg/ Sodium (Chloride) 51 mls @ 102 mls/hr IVPB Q6H PRN PRN Reason: Nausea Dextrose/Water (D5w) 1,000 mls @ 0 mls/hr IV .Q0M PRN; As Directed PRN Reason: Hypoglycemia Potassium Chloride/Sodium Chloride (Ns 0.9% W/ 40 Meq Kcl) 1,000 mls @ 50 mls/ hr IV .Q20H [facility] Last Admin: 01/14/18 07:00 Dose: 1,000 mls Insulin Human Regular (Humulin R) 0 units SC .MILD SLIDING SCALE PRN PRN Reason: Mild Correctional Scale Insulin Human Regular (Humulin R) 0 units SC .BEDTIME SLIDING SC PRN PRN Reason: Bedtime Correctional Scale Levothyroxine Sodium (Synthroid) 100 mcg PO 0600 [facility] Last Admin: 01/14/18 05:53 Dose: 100 mcg Lisinopril (Zestril) 10 mg PO BID [facility] Last Admin: 01/14/18 21:06 Dose: 10 mg Nitroglycerin (Nitrostat) 0.4 mg PO Q5MIN PRN PRN Reason: Chest Pain Ondansetron HCl (Zofran Odt) 4 mg PO Q6H PRN PRN Reason: Nausea/Vomiting Last Admin: 01/13/18 14:27 Dose: 4 mg Ondansetron HCl (Zofran) 4 mg IVP Q6H PRN PRN Reason: Nausea/Vomiting Pantoprazole Sodium (Protonix) 40 mg IVP Q12HR [facility] Last Admin: 01/14/18 21:06 Dose: 40 mg Pentoxifylline (Trental) 400 mg PO TID [facility] Last Admin: 01/14/18 21:06 Dose: 400 mg Quetiapine Fumarate (Seroquel) 12.5 mg PO BID [facility] Last Admin: 01/14/18 21:06 Dose: 12.5 mg Senna/Docusate Sodium (Senokot S) 2 tab PO BID [facility] Last Admin: 01/14/18 21:07 Dose: 2 tab Sodium Biphosphate/Sodium Phosphate (Fleet Enema) 133 ml OH ONE PRN PRN Reason: Constipation Stop: 01/15/18 16:39 Sodium Chloride (Flush - Normal Saline) 10 ml IVF Q12HR [facility] Last Admin: 01/14/18 21:07 Dose: 10 ml Sodium Chloride (Flush - Normal Saline) 10 ml IVF PRN PRN PRN Reason: Saline Flush Tramadol HCl (Ultram) 100 mg PO Q6H PRN PRN Reason: Pain Last Admin: 01/13/18 14:27 Dose: 100 mg
[2018-01-15 04:59] LABS: #Lymphocytes 1.7 thou/uL (1.20-3.40); #Monocytes 0.7 thou/uL (0.11-0.59); #Neutrophils 2.3 thou/uL (1.40-6.50); %Basophils 0.9 % (0.0-1.0); %Lymphocytes 35.6 % (21.0-51.0); %Neutrophils 49.5 % (42.0-75.0); Hemoglobin 12.8 g/dL (12.0-16.0); Mean Corpuscular Hemoglobin 28.2 pg (27.0-31.0); Mean Corpuscular Volume 88.2 fl (81.0-99.0); Mean Platelet Volume 8.8 fL (7.4-10.4); Platelet Count 174 thou/uL (130-400); RBC Distribution Width 12.8 % (11.5-14.5); Red Blood Cell (RBC) Count 4.56 mill/uL (4.20-5.40); White Blood Cell (WBC) Count 4.7 thou/uL (4.8-10.8)
[2018-01-15 05:09] LABS: Anion Gap 7 mmol/L (10-20); BUN (Urea Nitrogen) 11 mg/dL (9.8-20.1); Calc. Creatinine Clearance 42 mL/min (70-130); Calcium 8.5 mg/dL (7.8-10.44); Carbon Dioxide 32 mmol/L (23-31); Chloride 99 mmol/L (98-107); Estimated GFR-MDRD 82; Glucose 130 mg/dL (83-110); Magnesium 1.6 mg/dL (1.6-2.6); Potassium 3.3 mmol/L (3.5-5.1); Sodium 135 mmol/L (136-145)
[2018-01-15] MEDS: Levothyroxine Sodium 100 MCG TAB PO SCH (05:22)
[2018-01-15] MEDS: NS 0.9% w/ 40 MEQ KCL 1,000 ML IV SCH (05:24)
[2018-01-15] MEDS: Amlodipine 5 MG TAB PO SCH ×2 (08:37→22:48)
[2018-01-15] MEDS: Lisinopril 10 MG TAB PO SCH ×2 (08:37→22:49)
[2018-01-15] MEDS: Carbidopa/Levodopa CR 50-200 mg Tablet PO SCH ×3 (08:38→22:48)
[2018-01-15] MEDS: Senokot S 8.6-50 MG TAB PO SCH ×2 (08:39→22:52)
[2018-01-15] MEDS: Pantoprazole 40 MG VIAL IVP SCH ×2 (08:39→22:50)
[2018-01-15] MEDS: Digoxin 0.125 MG TAB PO SCH (08:39)
[2018-01-15] MEDS: traMADol HCl 50 MG TAB PO PRN ×2 (08:39→18:02)
[2018-01-15] MEDS: Enoxaparin Sodium 30 MG/0.3 ML SYRINGE SC SCH (08:39)
[2018-01-15] MEDS: Anastrozole 1 MG TAB PO SCH (08:40)
[2018-01-15] MEDS ORDERED: Potassium Chloride 40 MEQ in Sodium Chloride 0.9% 250 ML 250 ML IVPB SCH (10:30)
--- NOTE | 2018-01-15 15:03 | PDOC.PN ---
- Subjective Encounter Start Date: 01/15/18 Encounter Start Time: 15:01 Subjective: no new complaints.eating the pireed diet very well -: denies any dysphagia or painful swollow - Objective MAR Reviewed: Yes Vital Signs & Weight: Vital Signs (12 hours) Temp Pulse Resp BP BP BP Pulse Ox 01/15/18 11:48 98.7 F 98 18 167/76 H 94 L 01/15/18 08:39 16 L 01/15/18 08:37 16 L 134/70 01/15/18 08:00 98.7 F 98 18 94 L 01/15/18 07:28 98.4 F 16 170/78 H 100 Weight Admit Weight 106 lb 1.6 oz Weight 105 lb 6.095 oz I&O: 01/14/18 01/15/18 01/16/18 06:59 06:59 06:59 Intake Total 1440 960 Balance 1440 960 Result Diagrams: 01/15/18 03:55 01/15/18 03:55 Additional Labs: Accuchecks 01/15/18 01/15/18 01/14/18 11:45 04:41 16:18 POC Glucose 144 H 128 H 137 H Microbiology 01/12/18 14:08 Gastric - Pending Gastric Occult Blood - Final 01/12/18 10:56 Stool - Pending Stool Occult Blood (CELIA) - Final 01/12/18 09:11 Urine Straight Catheter Urine Culture - Final NO GROWTH AT 48 HOURS LABS REVIEWED Phys Exam - Physical Examination Constitutional: NAD EATING LUNCH W/O ANY PROBLEM BY HERSELF HEENT: PERRLA, moist MMs, sclera anicteric, oral pharynx no lesions Neck: no nodes, no JVD, supple, full ROM Respiratory: no wheezing, no rales, no rhonchi, clear to auscultation bilateral Cardiovascular: RRR, no significant murmur, no rub Gastrointestinal: soft, non-tender, no distention Musculoskeletal: no edema, pulses present Neurological: non-focal, normal sensation, moves all 4 limbs Psychiatric: normal affect, A&O x 3 Dx/Plan (1) Intractable nausea and vomiting Code(s): R11.2 - NAUSEA WITH VOMITING, UNSPECIFIED Status: Acute Comment: with abd pain, Prob due to Gastroparesis/Presbyesophagus/Hiatal hernia (2) Electrolyte abnormality Code(s): E87.8 - OTH DISORDERS OF ELECTROLYTE AND FLUID BALANCE, NEC Status: Acute Comment: hypokalemia (3) General weakness Code(s): R53.1 - WEAKNESS Status: Acute (4) DM2 (diabetes mellitus, type 2) Status: Chronic (5) Diabetes type 2, controlled Code(s): E11.9 - TYPE 2 DIABETES MELLITUS WITHOUT COMPLICATIONS Status: Chronic (6) Dyslipidemia Code(s): E78.5 - HYPERLIPIDEMIA, UNSPECIFIED Status: Chronic (7) Parkinson disease Code(s): G20 - PARKINSON'S DISEASE Status: Chronic (8) H/O malignant neoplasm of breast Code(s): Z85.3 - PERSONAL HISTORY OF MALIGNANT NEOPLASM OF BREAST Status: Acute - Plan PT/OT, out of bed/ambulate, DVT proph w/SCDs symptoms improved.cont pureed diet.s/p EGD -: cont PPI.home meds as below -: HD stable.replace potassium Iv and recheck -: janine MITTAL home w HH in am if able to eat better. -: Gi following * . Review of Systems - Review of Systems Constitutional: negative: fever, chills, sweats, weakness, malaise, other Respiratory: negative: Cough, Dry, Shortness of Breath, Hemoptysis, SOB with Excertion, Pleuritic Pain, Sputum, Wheezing Cardiovascular: negative: chest pain, palpitations, orthopnea, paroxysmal nocturnal dyspnea, edema, light headedness, other Gastrointestinal: negative: Nausea, Vomiting, Abdominal Pain, Diarrhea, Constipation, Melena, Hematochezia, Other Genitourinary: negative: Dysuria, Frequency, Incontinence, Hematuria, Retention , Other Musculoskeletal: negative: Neck Pain, Shoulder Pain, Arm Pain, Back Pain, Hand Pain, Leg Pain, Foot Pain, Other Skin: negative: Rash, Lesions, Gigi, Bruising, Other Neurological: negative: Weakness, Numbness, Incoordination, Change in Speech, Confusion, Seizures, Other - Medications/Allergies Allergies/Adverse Reactions: Allergies Allergy/AdvReac Type Severity Reaction Status Date / Time No Known Allergies Allergy Verified 01/12/18 14:13 Medications: Current Medications Acetaminophen (Tylenol) 650 mg PO Q4H PRN PRN Reason: Headache/Fever or Pain Amlodipine Besylate (Norvasc) 5 mg PO BID [facility] Last Admin: 01/15/18 08:37 Dose: 5 mg Anastrozole (Arimidex) 1 mg PO DAILY [facility] Last Admin: 01/15/18 08:40 Dose: 1 mg Bisacodyl (Dulcolax) 10 mg DC Q24H PRN PRN Reason: Constipation Calcium Carbonate (Tums) 1,000 mg PO Q4H PRN PRN Reason: Heartburn or Indigestion Carbidopa/Levodopa (Sinemet Cr 50/200) 0.5 tab PO TID [facility] Last Admin: 01/15/18 08:38 Dose: 0.5 tab Dextrose/Water (Dextrose 50%) 25 gm SLOW IVP PRN PRN PRN Reason: Hypoglycemia Digoxin (Lanoxin) 0.125 mg PO DAILY [facility] Last Admin: 01/15/18 08:39 Dose: 0.125 mg Enoxaparin Sodium (Lovenox) 30 mg SC 0900 [facility] Last Admin: 01/15/18 08:39 Dose: 30 mg Glucagon (Glucagon) 1 mg IM PRN PRN PRN Reason: Hypoglycemia Hydralazine HCl (Apresoline) 10 mg SLOW IVP Q4H PRN PRN Reason: SBP Greater Than 180 Hydralazine HCl (Apresoline) 10 mg SLOW IVP Q4H PRN PRN Reason: SBP Greater Than 180 Promethazine HCl 25 mg/ Sodium (Chloride) 51 mls @ 102 mls/hr IVPB Q6H PRN PRN Reason: Nausea Dextrose/Water (D5w) 1,000 mls @ 0 mls/hr IV .Q0M PRN; As Directed PRN Reason: Hypoglycemia Potassium Chloride/Sodium Chloride (Ns 0.9% W/ 40 Meq Kcl) 1,000 mls @ 50 mls/ hr IV .Q20H [facility] Last Admin: 01/15/18 05:24 Dose: 1,000 mls Insulin Human Regular (Humulin R) 0 units SC .MILD SLIDING SCALE PRN PRN Reason: Mild Correctional Scale Insulin Human Regular (Humulin R) 0 units SC .BEDTIME SLIDING SC PRN PRN Reason: Bedtime Correctional Scale Levothyroxine Sodium (Synthroid) 100 mcg PO 0600 [facility] Last Admin: 01/15/18 05:22 Dose: 100 mcg Lisinopril (Zestril) 10 mg PO BID [facility] Last Admin: 01/15/18 08:37 Dose: 10 mg Nitroglycerin (Nitrostat) 0.4 mg PO Q5MIN PRN PRN Reason: Chest Pain Ondansetron HCl (Zofran Odt) 4 mg PO Q6H PRN PRN Reason: Nausea/Vomiting Last Admin: 01/13/18 14:27 Dose: 4 mg Ondansetron HCl (Zofran) 4 mg IVP Q6H PRN PRN Reason: Nausea/Vomiting Pantoprazole Sodium (Protonix) 40 mg IVP Q12HR [facility] Last Admin: 01/15/18 08:39 Dose: 40 mg Pentoxifylline (Trental) 400 mg PO TID [facility] Last Admin: 01/15/18 08:40 Dose: 400 mg Quetiapine Fumarate (Seroquel) 12.5 mg PO BID [facility] Last Admin: 01/15/18 08:37 Dose: 12.5 mg Senna/Docusate Sodium (Senokot S) 2 tab PO BID [facility] Last Admin: 01/15/18 08:39 Dose: 2 tab Sodium Biphosphate/Sodium Phosphate (Fleet Enema) 133 ml DC ONE PRN PRN Reason: Constipation Stop: 01/15/18 16:39 Sodium Chloride (Flush - Normal Saline) 10 ml IVF Q12HR [facility] Last Admin: 01/15/18 08:40 Dose: Not Given Sodium Chloride (Flush - Normal Saline) 10 ml IVF PRN PRN PRN Reason: Saline Flush Tramadol HCl (Ultram) 100 mg PO Q6H PRN PRN Reason: Pain Last Admin: 01/15/18 08:39 Dose: 100 mg
--- NOTE | 2018-01-15 17:46 | PRG ---
DATE OF SERVICE: 01/15/2018 SUBJECTIVE: Ms. Elliott has been eating the pureed diet very well today. She has no acute complaints . OBJECTIVE: VITAL SIGNS: Temperature 98.7, pulse 98, blood pressure 167/76. GENERAL: She is in no acute distress. LUNGS: Clear to auscultation bilaterally. HEART: Regular rate and rhythm. ABDOMEN: Soft, nontender, nondistended, bowel sounds are present. EXTREMITIES: No lower extremity edema. IMPRESSION: Dysphagia secondary to dysmotility from presbyesophagus and hiatal hernia. RECOMMENDATIONS: 1. Do not advance her diet beyond pureed consistency. She can continue with the pureed diet as an o utpatient. 2. I will sign off. Please call if GI can be of assistance.
[2018-01-16] MEDS: NS 0.9% w/ 40 MEQ KCL 1,000 ML IV SCH (00:05)
[2018-01-16 05:06] LABS: Anion Gap 10 mmol/L (10-20); BUN (Urea Nitrogen) 12 mg/dL (9.8-20.1); Calc. Creatinine Clearance 39 mL/min (70-130); Calcium 8.7 mg/dL (7.8-10.44); Carbon Dioxide 29 mmol/L (23-31); Chloride 102 mmol/L (98-107); Estimated GFR-MDRD 77; Glucose 105 mg/dL (83-110); Potassium 4.3 mmol/L (3.5-5.1); Sodium 137 mmol/L (136-145)
[2018-01-16] MEDS: Levothyroxine Sodium 100 MCG TAB PO SCH (05:21)
[2018-01-16 08:20] VITALS: BP 126/70; TEMP 98.7
[2018-01-16] MEDS: Senokot S 8.6-50 MG TAB PO SCH (08:58)
[2018-01-16] MEDS: Lisinopril 10 MG TAB PO SCH (08:58)
[2018-01-16] MEDS: Amlodipine 5 MG TAB PO SCH (08:58)
[2018-01-16] MEDS: Digoxin 0.125 MG TAB PO SCH (08:58)
[2018-01-16] MEDS: Pantoprazole 40 MG VIAL IVP SCH (08:59)
[2018-01-16] MEDS: Anastrozole 1 MG TAB PO SCH (08:59)
[2018-01-16] MEDS: Enoxaparin Sodium 30 MG/0.3 ML SYRINGE SC SCH (08:59)
[2018-01-16] MEDS: Carbidopa/Levodopa CR 50-200 mg Tablet PO SCH ×2 (08:59→15:27)
--- NOTE | 2018-01-17 00:16 | DIS ---
DATE OF ADMISSION: 01/12/2018 DATE OF DISCHARGE: 01/16/2018 PRIMARY CARE PHYSICIAN: Kaylynn Ghotra MD DISCHARGE DIAGNOSES: 1. Dysphagia secondary to presbyesophagus. 2. Intractable nausea and vomiting secondary to gastroparesis, presbyesophagus, and hiatal hernia. 3. Presbyesophagus. 4. Hiatal hernia. 5. Hypokalemia, resolved. 6. Generalized weakness. 7. Diabetes mellitus type 2. 8. Dyslipidemia. 9. Parkinson's disease. 10. History of breast cancer. DISCHARGE MEDICATIONS: Remain the same as admission medication as follows: Insulin sliding scale, S enokot as needed, pioglitazone 15 mg a day, omeprazole 40 mg daily, carbidopa and levodopa 0.5 mg ta blet t.i.d., pentoxifylline 300 mg daily, Synthroid 100 mcg daily, digoxin 0.125 mg daily, Arimidex 1 mg daily, Seroquel 12.5 mg p.o. b.i.d., atorvastatin 40 mg daily, aspirin 81 mg daily, lisinopril 10 mg p.o. b.i.d., amlodipine 5 mg p.o. b.i.d. Please note that the dose of the lisinopril and amlodip ine are new and have been changed. CONSULTATIONS IN-HOUSE: Gastroenterology, Dr. Eng and Dr. Robbins. PROCEDURES: Procedures in the hospital include, 1. CT scan of the abdomen and pelvis upon presentation, which shows large hiatal hernia, post cholec ystectomy changes, and no acute changes. 2. EGD on 01/13/[address] Eng, which shows findings of presbyesophagus and medium-sized hiatal he rnia with retained food and what appears to be slipped fundoplication, otherwise normal EGD. HISTORY OF PRESENTING ILLNESS: Ms. Elliott is an 82-year-old female with past medical history of diab etes, presbyesophagus, hypertension, dyslipidemia, and Parkinson with recent E. coli UTI, who present ed to the emergency room with complaints of nausea, vomiting, and coffee-ground emesis today. She wa s hypertensive upon presentation. The family said that she has been having intractable nausea and vo miting, and was admitted in August of this year by same. She has been having poor appetite this wilbert e around as well. CT scan done in the abdomen and pelvis showed large hiatal hernia and she was foun d to be hypokalemic with a potassium of 3.1 and hypophosphatemia with a phosphorus of 2.2. She was a dmitted for intractable nausea and vomiting and possible hematemesis. Her hemoglobin was 13.7 on pre sentation. Gastric occult blood was positive and stool occult blood was negative in the ER. She was admitted for further evaluation. Please see admission history and physical for further details. The patient was seen by Gastroenterology for her complaints of hematemesis. Her hemoglobin was trend ed and was stable. Because of persistent nausea, vomiting, and coffee-ground emesis, she underwent E GD with the results mentioned above. There was no active bleeding or source or cause of hematemesis. They recommended the patient eats only pureed food and this really helped improve her appetite and her food intake. She was tolerating the pureed diet and was feeding herself more than 50% of the leonard ls. Eventually, Gastroenterology signed off as there were no further recommendations from them. By the time of discharge, the patient is back to her baseline and electrolyte imbalances have been co rrected. Urine culture was done, which was negative. She had no evidence of hematemesis, hematochez ia, or melena throughout her hospitalization and remained hemodynamically stable. Home Health was or dered for her, but her family declined the offer at this time. She was seen and examined prior to discharge and has been cleared by GI for discharge as well. PHYSICAL EXAMINATION: This morning, GENERAL: The patient is seen feeding herself. VITAL SIGNS: Temperature 98.7, pulse of 89, blood pressure 126/70, saturating 97% on room air. GENERAL: No acute distress. CHEST: Clear to auscultation bilaterally. Rate and rhythm are regular. I have instructed her to eat pureed small meals at a time, and if she feels full to stop before she t hrows up and then eat at a later time. She verbalized understanding. She will be discharged home wi outpatient followup with primary care physician. TOTAL TIME SPENT: 32 minutes.
--- NOTE | 2018-01-19 23:08 | EKG ---
Test Reason : Blood Pressure : / mmHG Vent. Rate : 088 BPM Atrial Rate : 088 BPM P-R Int : 114 ms QRS Dur : 092 ms QT Int : 352 ms P-R-T Axes : 102 -25 108 degrees QTc Int : 425 ms Normal sinus rhythm Septal infarct , age undetermined Left axis deviation Abnormal ECG Confirmed by CECILIA CORNELL, MANASA ([id number]), proposal editor DIPTI VALENZUELA ([id number]) on 01/19/2018 11:08:03 PM Referred By: Confirmed By:MANASA BROOKS MD
== END 2018-01-16 17:51 | disposition home or self-care (01) | DRG 392 ==
LOC: ERS 07:27 → T4-A 13:38 → OBSVTOIN 01-13 00:33
PROVIDERS: ADMIT Internal Medicine; ATTEND Internal Medicine
PROC: 0DJ08ZZ Inspection of Upper Intestinal Tract, Via Natural or Artificial Opening Endoscopic (ICD-10-PCS; principal; 2018-01-13)
DX: K22.8 Other specified diseases of esophagus (principal); E44.0 Moderate protein-calorie malnutrition; Z68.1 Body mass index [BMI] 19.9 or less, adult; K92.0 Hematemesis; K22.4 Dyskinesia of esophagus; R13.10 Dysphagia, unspecified; K44.9 Diaphragmatic hernia without obstruction or gangrene; E87.6 Hypokalemia; E78.5 Hyperlipidemia, unspecified; G20 Parkinson's disease; E11.43 Type 2 diabetes mellitus with diabetic autonomic (poly)neuropathy; K31.84 Gastroparesis; R53.1 Weakness; Z79.4 Long term (current) use of insulin; Z87.440 Personal history of urinary (tract) infections; Z85.3 Personal history of malignant neoplasm of breast; F25.9 Schizoaffective disorder, unspecified; E11.42 Type 2 diabetes mellitus with diabetic polyneuropathy; R19.5 Other fecal abnormalities; E83.39 Other disorders of phosphorus metabolism; I12.9 Hypertensive chronic kidney disease with stage 1 through stage 4 chronic kidney disease, or unspecified chronic kidney disease; E11.22 Type 2 diabetes mellitus with diabetic chronic kidney disease; N18.2 Chronic kidney disease, stage 2 (mild); E86.0 Dehydration; K64.4 Residual hemorrhoidal skin tags; Z90.12 Acquired absence of left breast and nipple; Z90.49 Acquired absence of other specified parts of digestive tract
CPT/HCPCS: 36415; 36416; 51701; 71045; 74177; 80048; 80053; 80069; 81003; 81015; 82271; 82274; 82550; 82553; 83690; 83735; 83880; 84100; 84484; 85025; 87086; 93005; 94760; 96361; 96372; 96374; A4216; A4353; C9113; G8978-GP-CI; G8979-GP-CI; G8980-GP-CI; J1650; J2001; J2704; J2765; J3480; J7050; Q0162

== ENCOUNTER 2019-03-12 13:44 | Emergency (ER) | payer MEDICARE, MEDICAID ==
[2019-03-12] MEDS ORDERED: ISOVUE-370 76%-LOCM 1 ML ONE (13:46)
[2019-03-12 14:45] LABS: #Lymphocytes 0.8 thou/uL (1.20-3.40); #Monocytes 0.4 thou/uL (0.11-0.59); #Neutrophils 5.3 thou/uL (1.40-6.50); %Basophils 0.1 % (0.0-1.0); %Eosinophils 0.1 % (0.0-10.0); %Lymphocytes 12.5 % (21.0-51.0); %Monocytes 6.8 % (0.0-10.0); %Neutrophils 80.5 % (42.0-75.0); Hemoglobin 14.5 g/dL (12.0-16.0); Mean Corpuscular HGB CONC 31.6 g/dL (32.0-36.0); Mean Corpuscular Hemoglobin 28.2 pg (27.0-31.0); Mean Corpuscular Volume 89.2 fL (78.0-98.0); Mean Platelet Volume 8.7 fL (7.4-10.4); Platelet Count 246 thou/uL (130-400); RBC Distribution Width 12.4 % (11.5-14.5); Red Blood Cell (RBC) Count 5.15 mill/uL (4.20-5.40); White Blood Cell (WBC) Count 6.5 thou/uL (4.8-10.8)
[2019-03-12] MEDS ORDERED: Pantoprazole 40 MG VIAL ONE (14:59)
[2019-03-12] MEDS ORDERED: Ondansetron PF 4 MG/2 ML Vial ONE (14:59)
[2019-03-12 15:07] LABS: ALT (SGPT) 15 U/L (8-55); AST (SGOT) 18 U/L (5-34); Albumin 4.2 g/dL (3.4-4.8); Alkaline Phosphatase 67 U/L (40-150); Anion Gap 16 mmol/L (10-20); BUN (Urea Nitrogen) 12 mg/dL (9.8-20.1); Bilirubin, Total 0.6 mg/dL (0.2-1.2); CK (CPK) 146 U/L (29-168); Calc. Creatinine Clearance 0 mL/min (70-130); Calcium 9.9 mg/dL (7.8-10.44); Carbon Dioxide 32 mmol/L (23-31); Chloride 94 mmol/L (98-107); Estimated GFR-MDRD 74; Globulin 3.4 g/dL (2.4-3.5); Glucose 206 mg/dL (83-110); Lipase 13 U/L (8-78); Potassium 3.5 mmol/L (3.5-5.1); Protein, Total 7.6 g/dL (6.0-8.3); Sodium 138 mmol/L (136-145)
--- NOTE | 2019-03-12 16:03 | CT ---
CT OF THE ABDOMEN AND PELVIS WITH IV CONTRAST INDICATION: Abdominal pain since Sunday COMPARISON: CT the abdomen and pelvis dated January 12, 2018 FINDINGS: ABDOMEN: Lung bases: There is a moderate-sized hiatal hernia. Liver: No focal lesion. Gallbladder: Surgically absent. There is stable intrahepatic and extrahepatic biliary ductal dictati on. Pancreas: There is stable mild dilatation of the main pancreatic duct. Adrenal glands: Normal. Spleen: Normal. Kidneys: There is a right renal cyst measuring 1.3 cm. Left kidney demonstrates tiny subcentimeter cy sts. Retroperitoneum of the upper abdomen: There is stable severe vascular calcifications involving abdomi nal aorta. 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 Pelvis: Small and large bowel: There is a moderate amount of retained stool within colon. Small bowel is of n ormal caliber. Bladder: There is moderate distention of the bladder. Rectal and perirectal soft tissues:There is wall thickening involving the rectum Reproductive structures: Not seen Free fluid in pelvis: No free fluid is evident. Lymphadenopathy pelvis: No lymphadenopathy is evident. Osseous structures: No acute osseous abnormality. No destructive osteolytic or osteoblastic lesion i s identified. There is scattered degenerative and osteoarthritic changes. IMPRESSION: 1. Wall thickening involving the rectum may reflect proctitis. 2. Moderate amount of retained stool within colon. 3. Moderate distention of the bladder. 4. Moderate hiatal hernia. 5. Stable postsurgical change of a cholecystectomy stable intrahepatic, extrahepatic biliary ductal d ilatation and mild dilatation of the main pancreatic duct. 6. 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
--- NOTE | 2019-03-15 17:01 | EKG ---
Test Reason : ER INDICATION Blood Pressure : / mmHG Vent. Rate : 092 BPM Atrial Rate : 092 BPM P-R Int : 108 ms QRS Dur : 104 ms QT Int : 368 ms P-R-T Axes : 046 037 104 degrees QTc Int : 455 ms Sinus rhythm with short OK Confirmed by DEBORA LIRA ([id number]), editorial cartoonist FIDENCIO GUZMAN ([id number]) on 03/15/2019 5:01:29 PM Referred By: Confirmed By:DEBORA LIRA
== END 2019-03-12 18:27 | disposition home or self-care (01) ==
LOC: ERS 13:44
DX: K62.89 Other specified diseases of anus and rectum (principal); K59.00 Constipation, unspecified; I11.0 Hypertensive heart disease with heart failure; I50.9 Heart failure, unspecified; E11.42 Type 2 diabetes mellitus with diabetic polyneuropathy; E11.43 Type 2 diabetes mellitus with diabetic autonomic (poly)neuropathy; K31.84 Gastroparesis; K21.9 Gastro-esophageal reflux disease without esophagitis; E03.9 Hypothyroidism, unspecified; F20.9 Schizophrenia, unspecified; Z79.4 Long term (current) use of insulin; Z79.899 Other long term (current) drug therapy
CPT/HCPCS: 36415; 74177; 80053; 82550; 83690; 84484; 85025; 93005; 96361; 96372; 96374; 96375; C9113; J0500; J2405; Q9966

== ENCOUNTER 2020-07-29 12:00 | Outpatient (CLI) | payer MEDICARE, MEDICAID ==
--- NOTE | 2020-07-29 14:31 | PET ---
Exam: PET scan with CT attenuation correction HISTORY: Malignant neoplasm of lower inner quadrant of the left breast. 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 Left pleural effusion. COMPARISON: 01/30/2015 Correlation: Chest CT and thoracic spine CT 07/13/2020 TECHNIQUE: PET scan with CT attenuation correction was performed from the base of the brain to the pr oximal thighs following the intravenous administration of 11.7 mCi of [id number] FINDINGS: Head and neck: No abnormal FDG localization CHEST: CT used for attenuation correction demonstrates left mastectomy change. There is a soft tissue mass in the left chest wall with a maximum SUV of 6.6. On the CT used for attenuation correction, this anterior chest wall mass measures 2.1 x 0.8 cm. Hypermetabolic precarinal lymph node with a maxi mum SUV of 4.6. Hypermetabolic prevascular lymph node with a maximum SUV of 7.9. Hypermetabolic left hilar lymph node with a maximum SUV of 4.9. CT used for attenuation correction demonstrates grou ndglass opacity in the superior segment left lower lobe and posterior aspect of the left upper lobe. Consolidation in the left upper lobe likely represents area of scarring or atelectasis. Mild in creased FDG avidity of 2.9. Focal area of low-grade infection or inflammation cannot be excluded. Posttreatment change is also a consideration. Abdomen pelvis: No abnormal FDG localization. CT used for attenuation correction demonstrates a surgi malika absent gallbladder. Osseous structures: There is FDG avidity involving a sclerotic focus at the T5 level. Maximum SUV is 2.9. Additional abnormal FDG localization in the osseous structures is not appreciated. IMPRESSION: 1. Nonhypermetabolic moderate left pleural effusion 2. Hypermetabolic mediastinal lymph nodes as described above. There is evidence of a moderate left-si ded pleural effusion. No evidence of FDG avidity 3. Mild increased FDG avidity involving a sclerotic focus at T5. Additional osseous metastases is not appreciated. Findings may represent a treated metastatic deposit. 4. Soft tissue mass in the anterior left chest with FDG avidity. Focal area of scarring is a consider ation given the well-defined appearance on the CT used for attenuation correction. However, given the significant FDG avidity recurrent disease cannot be excluded. Consider targeted ultrasound for po ssible evaluation/biopsy. 5. Mild FDG avidity involving a focal area of consolidation left upper lobe. Different considerations include infection, inflammation or posttreatment change.
== END 2020-07-29 12:01 | disposition home or self-care (01) ==
LOC: PET 12:00
PROVIDERS: ATTEND Internal Medicine Hematology & Oncology
DX: C50.312 Malignant neoplasm of lower-inner quadrant of left female breast (principal); R93.7 Abnormal findings on diagnostic imaging of other parts of musculoskeletal system; J90 Pleural effusion, not elsewhere classified; M79.89 Other specified soft tissue disorders
CPT/HCPCS: 78815; A9552